=== PATIENT | male | born 1955 | race Caucasian/White ===

== ENCOUNTER 2021-09-08 13:33 | Inpatient (IN) | payer MEDICARE, BC ==
[2021-09-08] MEDS ORDERED: SODIUM CHLORIDE 0.9% 1,000 ML IV ONE (13:42)
[2021-09-08] MEDS ORDERED: fentaNYL (PF) 50 MCG/ML 2 ML AMP IVP STA ×2 (13:44→15:44)
--- NOTE | 2021-09-08 13:54 | ED ---
Trauma HPI - General Stated Complaint: Fall Time Seen by Provider: 09/08/21 13:40 Source: patient Mode of arrival: EMS Limitations: no limitations - History of Present Illness Initial Comments: This 65-year-old male presents after he apparently fell from a ladder. He was purportedly about 5 feet up when he fell backwards. He landed on his back and most likely hit his head. He apparently was unconscious for up to 15 minutes. Per EMS, he was having retrograde amnesia and repetitive questioning. He is complaining of some pain into his right upper back which seems radiate into his shoulder. He also complains of some pain into his cervical spine. He states that his arms feel heavy. He denies any extremity trauma otherwise. He is not on any blood thinner type of medications or aspirin. This occurred just prior to arrival and he is brought in via EMS. He received 50 g of fentanyl intravenously per EMS with moderate relief. - Related Data Allergies Allergy/AdvReac Type Severity Reaction Status Date / Time No Known Allergies Allergy Verified 09/08/21 13:49 Review of Systems ROS Statement: Those systems with pertinent positive or pertinent negative responses have been documented in the HPI. ROS Other: All systems not noted in ROS Statement are negative. Past Medical History Past Medical History: Diabetes Mellitus, Hypertension History of Any Multi-Drug Resistant Organisms: None Reported Past Surgical History: Back Surgery Past Psychological History: No Psychological Hx Reported Smoking Status: Never smoker Past Alcohol Use History: None Reported Past Drug Use History: None Reported General Exam - General Exam Comments Initial Comments: GENERAL: The patient is well nourished and well hydrated. VITAL SIGNS: Heart rate, blood pressure, respiratory rate reviewed as recorded i n nurse's notes. EYES: Pupils are round and reactive. Extraocular movements are intact. No conjunctival / lid redness or swelling. ENT: No external evidence of injury, swelling, or ecchymosis. Airway is patent. Throat is clear. NECK: Mild tenderness noted diffusely to the cervical spine. No swelling or evidence of injury. No subcutaneous emphysema. Trachea is midline. No thyroid mass. HEART: Regular rate and rhythm. Good peripheral pulses. LUNGS/CHEST: Breath sounds clear and equal bilaterally. No rales, rhonchi, or wheezes. No ecchymosis, subcutaneous emphysema, or tenderness. ABDOMEN: Abdomen soft with mild tenderness in the right upper abdomen. No palpable masses or organomegaly. No peritoneal signs. No abdominal wall swelling or ecchymosis. EXTREMITIES: There is mild tenderness noted to the right shoulder diffusely. Normal muscle tone and function. Tenderness is noted into the right upper thoracic region mostly over the ribs just to the right of midline. There is also some mild tenderness over the midthoracic spine. NEUROLOGIC: Sensation is grossly intact. Cranial nerve exam reveals face is symmetrical, tongue is midline, speech is clear. SKIN: No abrasions or ecchymosis is noted. No induration or masses noted. PSYCHIATRIC: Alert and oriented. Appropriate behavior and judgment. Limitations: no limitations Course Vital Signs 09/08/21 13:45 Temperature 98 F Pulse Rate 81 Respiratory 18 Rate Blood Pressure 132/84 O2 Sat by Pulse 90 L Oximetry Medical Decision Making - Medical Decision Making The patient was seen and examined. He was received as a trauma and was seen immediately. He presents on a backboard and c-collar. He did not meet trauma activation criteria per current protocols so trauma to his not initially activated. Backboard is cleared. C-collar is maintained. IV is already established. His oxygenation apparently was down to 85% on scene and oxygen is initiated and maintained. He received 50 g of fentanyl via EMS. An additional 50 g of fentanyl was ordered. The patient had laboratory analysis completed which shows evidence of elevation of his liver function studies. Remainder of labs do not show any overt significant abnormalities. The computed tomography scan of the brain does not show any intracranial hemorrhage or acute processes. The computed tomography scan of the thoracic, lumbar, and cervical spine was all negative for acute processes. The computed tomography scan of the thorax does show fractures of ribs 3 through 10 consistent with flail chest. All her segmental except for rib #9. There also is a small pneumothorax, and a small pneumothorax less than 5%. There is evidence of a right pulmonary contusion. This computed tomography scan of the abdomen and pelvis shows a 2.5 cm right hepatic hematoma which is considered grade 3. There is a right adrenal hem atoma. There also is a right renal laceration which is considered to be grade 3 with a subcapsular 1.1 cm hematoma. Patient receives additional fentanyl as well as IV fluids. EKG is ordered and shows a normal sinus rhythm at a rate of 73. ST-T wave changes noted. The RI intervals 175, QRS duration is 89, and the QTC intervals 426. The c-collar is cleared. The case is discussed with Dr. Brush from trauma surgery as well as Dr. Berumen from pulmonology as well as Dr. Matos from urology and Dr. Louise from CV surgery and they are agreeable with admission and consultation. Patient will be admitted to the intensive care unit for further treatment. On recheck, he is approximately 92% on 3 L per nasal cannula. Approximately 45 minutes of critical care time is utilized and the treatment of the patient. - Lab Data Result diagrams: 09/08/21 14:07 09/08/21 14:07 Lab Results 09/08/21 09/08/21 09/08/21 Range/Units 14:00 14:07 14:07 WBC 12.0 H (3.8-10.6) k/uL RBC 4.66 (4.30-5.90) m/uL Hgb 15.1 (13.0-17.5) gm/dL Hct 45.1 (39.0-53.0) % MCV 96.7 (80.0-100.0) fL MCH 32.3 (25.0-35.0) pg MCHC 33.5 (31.0-37.0) g/dL RDW 13.2 (11.5-15.5) % Plt Count 209 (150-450) k/uL MPV 7.4 Neutrophils % 80 % Lymphocytes % 13 % Monocytes % 4 % Eosinophils % 1 % Basophils % 0 % Neutrophils # 9.6 H (1.3-7.7) k/uL Lymphocytes # 1.6 (1.0-4.8) k/uL Monocytes # 0.5 (0-1.0) k/uL Eosinophils # 0.1 (0-0.7) k/uL Basophils # 0.0 (0-0.2) k/uL PT 10.7 (9.0-12.0) sec INR 1.0 (<1.2) APTT 19.3 L (22.0-30.0) sec Sodium (137-145) mmol/L Potassium (3.5-5.1) mmol/L Chloride (98-107) mmol/L Carbon Dioxide (22-30) mmol/L Anion Gap mmol/L BUN (9-20) mg/dL Creatinine (0.66-1.25) mg/dL Est GFR (CKD-EPI)AfAm (>60 ml/min/1.73 sqM) Est GFR (CKD-EPI)NonAf (>60 ml/min/1.73 sqM) Glucose (74-99) mg/dL Plasma Lactic Acid Timo (0.7-2.0) mmol/L Calcium (8.4-10.2) mg/dL Total Bilirubin (0.2-1.3) mg/dL AST (17-59) U/L ALT (4-49) U/L Alkaline Phosphatase (38-126) U/L Total Protein (6.3-8.2) g/dL Albumin (3.5-5.0) g/dL Lipase (23-300) U/L Blood Type B Positive Blood Type Confirm Blood Type Recheck No Previous Record Bld Type Recheck Status CABO Indicated Antibody Screen NEGATIVE Spec Expiration Date 09/11/2021 - 229909/08/21 09/08/21 09/08/21 Range/Units 14:07 14:07 15:09 WBC (3.8-10.6) k/uL RBC (4.30-5.90) m/uL Hgb (13.0-17.5) gm/dL Hct (39.0-53.0) % MCV (80.0-100.0) fL MCH (25.0-35.0) pg MCHC (31.0-37.0) g/dL RDW (11.5-15.5) % Plt Count (150-450) k/uL MPV Neutrophils % % Lymphocytes % % Monocytes % % Eosinophils % % Basophils % % Neutrophils # (1.3-7.7) k/uL Lymphocytes # (1.0-4.8) k/uL Monocytes # (0-1.0) k/uL Eosinophils # (0-0.7) k/uL Basophils # (0-0.2) k/uL PT (9.0-12.0) sec INR (<1.2) APTT (22.0-30.0) sec Sodium 135 L (137-145) mmol/L Potassium 4.3 (3.5-5.1) mmol/L Chloride 102 (98-107) mmol/L Carbon Dioxide 24 (22-30) mmol/L Anion Gap 9 mmol/L BUN 17 (9-20) mg/dL Creatinine 1.08 (0.66-1.25) mg/dL Est GFR (CKD-EPI)AfAm 82 (>60 ml/min/1.73 sqM) Est GFR (CKD-EPI)NonAf 71 (>60 ml/min/1.73 sqM) Glucose 192 H (74-99) mg/dL Plasma Lactic Acid Timo 4.1 H* (0.7-2.0) mmol/L Calcium 9.5 (8.4-10.2) mg/dL Total Bilirubin 0.7 (0.2-1.3) mg/dL AST 663 H (17-59) U/L ALT 668 H (4-49) U/L Alkaline Phosphatase 64 (38-126) U/L Total Protein 7.2 (6.3-8.2) g/dL Albumin 4.4 (3.5-5.0) g/dL Lipase 70 (23-300) U/L Blood Type Blood Type Confirm B Positive Blood Type Recheck Bld Type Recheck Status Antibody Screen Spec Expiration Date Disposition Clinical Impression: Head injury, Concussion, Blunt chest trauma, Acute abdominal pain, Hypoxia, Fall from ladder, Flail chest, Respiratory failure, Rib fractures, Pulmonary con tusion, Hemothorax, Pneumothorax, Adrenal hematoma, Liver hematoma, Kidney laceration, Transaminitis Disposition: ADMITTED IP TO THIS [facility] Condition: Serious Is patient prescribed a controlled substance at d/c from ED?: No Referrals: None,Stated [REFERRING] - 1-2 days Time of Disposition: 16:15 Decision Date: 09/08/21 Decision Time: 16:15
[2021-09-08 14:39] LABS: Basophils % (A) 0 %; Eosinophils # (A) 0.1 k/uL (0-0.7); Eosinophils % (A) 1 %; HCT 45.1 % (39.0-53.0); HGB 15.1 gm/dL (13.0-17.5); Lymphocytes # (A) 1.6 k/uL (1.0-4.8); Lymphocytes % (A) 13 %; MCH 32.3 pg (25.0-35.0); MCHC 33.5 g/dL (31.0-37.0); MCV 96.7 fL (80.0-100.0); Mean Platelet Volume 7.4; Monocytes # (A) 0.5 k/uL (0-1.0); Monocytes % (A) 4 %; Neutrophils # (A) 9.6 k/uL (1.3-7.7); Neutrophils % (A) 80 %; Platelet Count 209 k/uL (150-450); RBC 4.66 m/uL (4.30-5.90); RDW 13.2 % (11.5-15.5)
[2021-09-08 14:49] LABS: Prothrombin Time 10.7 sec (9.0-12.0)
[2021-09-08 14:51] LABS: Albumin 4.4 g/dL (3.5-5.0); Calcium 9.5 mg/dL (8.4-10.2); Potassium 4.3 mmol/L (3.5-5.1); Total Bilirubin 0.7 mg/dL (0.2-1.3); Total Protein 7.2 g/dL (6.3-8.2)
[2021-09-08 14:55] LABS: Partial Thromboplastin Time 19.3 sec (22.0-30.0)
--- NOTE | 2021-09-08 15:15 | CT ---
EXAMINATION TYPE: CT brain cspine wo con DATE OF EXAM: 09/08/2021 COMPARISON: None available HISTORY: Fall from ladder. +LOC. Upper back and right chest pain. IFEOMA. CT DLP: 1881.5 mGycm Automated exposure control for dose reduction was used. TECHNIQUE: CT scan of the head and cervical spine are performed without contrast. FINDINGS: Brain: There is no acute intracranial hemorrhage, mass effect, or midline shift identified. The ventricles and sulci are within normal limits in size. The globes are intact. Mucosal thickening of the left an terior ethmoid air cells and maxillary sinuses. Clear mastoid air cells. Soft tissue calcification hull rrounding the right TMJ. No definite acute calvarial bone fracture identified. Cervical spine: Previous anterior fixation of C5 down to C7 using a plate and 4 metallic screws. No prosthesis break or displacement. Mild anterolisthesis of C3 over C4, likely degenerative. No definite vertebral body collapse or acute displaced fracture. Unremarkable atlantoaxial and atlantooccipital articulations. Degenerative changes of the cervical spine with multilevel opposing endplate osteophytosis. Multileve l spinal canal stenosis most evident at C3-4 and C4-5 levels. Multilevel facet osteoarthropathy is se en most evident at bilateral C4-5 facets and right 7 T1 facet. Severe left C3-4, bilateral C4-5, araseli re bilateral C5-6 and severe bilateral C6-7 neural foraminal stenosis. Right posterior rib fractures, CT scan of the chest is dictated separately. IMPRESSION: 1. No intracranial posttraumatic sequela or acute calvarial bone fracture. 2. No acute traumatic bony injury of the cervical spine. Incidental findings as described above.
--- NOTE | 2021-09-08 15:30 | CT ---
EXAMINATION TYPE: CT thor lumbar spine w con DATE OF EXAM: 09/08/2021 INDICATION: Fall from ladder. +LOC. Upper back and right chest pain. IFEOMA. CT DLP: 4412.7 mGy.cm (including brain, C-spine, chest, abdomen and pelvis). Automated Exposure Cont rol for Dose Reduction was Utilized. TECHNIQUE AND CONTRAST: CT scan of the thoracic and lumbar spine is performed with IV Contrast, patient injected with 100 mL of Isovue 300. COMPARISON: No previous CT scan is available for comparison FINDINGS: Dextroscoliosis of the lumbar spine. Previous L1-L3 fixation using 2 roads and 6 metallic screws. No evidence of prosthesis break or displacement. No definite thoracic or lumbar vertebral body collapse or acute displaced fracture. Severe degenerative changes of the lumbar spine most evident at L3-4, L4-5 and L5-S1 levels with fuse d L1, L2 and L3 vertebral bodies. Previous laminectomy of L1 down to L4. Mild multilevel thoracic spi nal canal stenosis and neuroforaminal stenosis. Bilateral L3-4, L4-5 and L5-S1 neuroforaminal stenosi s with severe bilateral L1-2 and left L2-3 neural foraminal stenosis. Multiple right rib fractures are seen at multiple locations suggestive of flail chest associated with right pleural effusion/hemothorax and right pulmonary infiltration with small right-sided pneumothor ax, kindly refer to the separate dictation of the CT scan of the chest, abdomen and pelvis. IMPRESSION: No definite acute traumatic bony injury of the thoracic or the lumbar spine. Significant right rib fr actures, small right pneumothorax and right sided chest injury, kindly refer to the separate report o f the CT scan of the chest, abdomen and pelvis. Other findings as described above.
--- NOTE | 2021-09-08 15:33 | CT ---
EXAMINATION TYPE: CT ChestAbdPelvis w con DATE OF EXAM: 09/08/2021 COMPARISON: None HISTORY: 65-year-old male Fall from ladder. +LOC. Upper back and right chest pain. IFEOMA. TECHNIQUE: Contiguous axial scanning of the chest, abdomen, and pelvis performed with IV Contrast, pa tient injected with 100 mL of Isovue 300. Delayed images through the kidneys and bladder were obtaine d. Coronal/sagittal reconstructions performed. CT DLP: 2531 mGycm Automated exposure control for dose reduction was used. FINDINGS: CHEST: Are normal size without pericardial effusion. Ascending aorta borderline ectatic at 3.5 cm with conventional arch vessel branching anatomy. No evid ence for aortic dissection. No evidence for mediastinal hematoma. No thoracic lymphadenopathy by CT size criteria. There is a trace, less than 5% pneumothorax on the right. There is a small hemothorax with adjacent a telectasis. Patchy areas of groundglass and consolidation right mid and lower lung suggests pulmonary contusion. Multiple right-sided rib fractures are present. Fractures involve right posterior and lateral third t hrough 10th ribs. Only the ninth rib fracture is not segmental. Otherwise, faustino flail chest is sugge sted. On the left, there is mild dependent atelectasis. Bruising soft tissue swelling and bruising along the right chest wall. ABDOMEN: There is a vague 2.2 cm hypodensity of the right hepatic dome, possible intraparenchymal hematoma, gr genaro 3 injury. Post cystectomy clips. Portal venous system is patent. No biliary ductal dilatation. There is ill-defined soft tissue nodule right adrenal gland measuring 3.3 cm. Some adjacent soft tiss ue stranding just below the hepatic IVC and thickening along the posterior right pararenal fascia pro bably from tracking blood. Couple nonobstructive right renal calculi measuring up to 4 mm. There is a 1.7 cm parenchymal hematoma/laceration along the lateral lower pole right kidney. Subcapsu lar crescentic hematoma measuring up to 1.1 cm thick. Additional vague hypodense contusion at the lat eral upper pole. Findings more apparent on the delayed kidney images. Again, tracking hemorrhage thic kening the posterior right pararenal fascia. Grade 3 injury. Left adrenal gland, left kidney, spleen, and atrophic pancreas show no gross body. No dilated small bowel, free fluid, or free air. Mild stool burden. Left-sided colonic diverticulosis . Redundant sigmoid colon. Diverticular changes greatest in the sigmoid colon. No pericolonic inflamm atory change. PELVIS: Mild circumferential bladder wall thickening. Prostate gland enlarged measuring 6.7 cm wide and after 6.8 cm craniocaudal with lobulated thickening impressing into the base of the bladder. Left-sided pe lvic phleboliths. No abnormal fluid collection in the pelvis OR PELVIC LYMPHADENOPATHY. BONES: Mild to moderate degenerative change of the hips. Degenerated extra convex curvature lumbar spine wit h a previous L3 L1-L3 posterior and interbody fusion with corresponding laminectomies down through th e L5 level. Advanced degenerative disc disease throughout the lumbar spine. Moderately advanced throu ghout the thoracic spine. Thoracic and lumbar spine to contact instructions reported separately. This is not a detailed assessm ent of the spine. IMPRESSION: 1. FLAIL CHEST ON THE RIGHT WITH FRACTURES INVOLVING THE THIRD THROUGH 10TH RIBS. ALL OF THESE ARE SE GMENTAL FRACTURES EXCEPT FOR THE NINTH RIB. 2. UNDERLYING SMALL HEMOTHORAX AND SMALL, LESS THAN 5% PNEUMOTHORAX. SCATTERED PULMONARY CONTUSIONS R IGHT MID AND LOWER LUNG. 3. POSSIBLE GRADE 3 INJURY AT THE RIGHT HEPATIC DOME WITH A 2.2 CM INTRAPARENCHYMAL HEMATOMA. 4. SUSPECT RIGHT ADRENAL HEMATOMA/HEMORRHAGE MEASURING 3.3 CM. 5. GRADE 3 RIGHT RENAL INJURY WITH UPPER POLE CONTUSION, 1.7 CM LOWER POLE PARENCHYMAL LACERATION/HE MATOMA, A 1.1 CM THICK SUBCAPSULAR HEMATOMA. NO COLLECTING SYSTEM INJURY IDENTIFIED. 6. SOME MILD HEMORRHAGE TRACKING FROM HERE AND THICKENING THE POSTERIOR RIGHT PARARENAL FASCIA AND TH E INFRAHEPATIC PERICAVAL TISSUES. 7. INCIDENTAL: LEFT-SIDED COLONIC DIVERTICULOSIS, A COUPLE NONOBSTRUCTIVE RIGHT RENAL CALCULI, MARKED PROSTATOMEGALY AT 6.8 CM. 8. THORACIC AND LUMBAR SPINE REPORTED SEPARATELY. Findings called to Dr. Cates in the ER at 3:30 PM.
[2021-09-08] MEDS ORDERED: SODIUM CHLORIDE 0.9% 500 ML 500 ML IV STA (16:11)
[2021-09-08] MEDS ORDERED: NALOXONE 0.4 MG/ML 1 ML VIAL IV PRN (16:36)
[2021-09-08] MEDS ORDERED: ACETAMINOPHEN TAB 325 MG TAB PO PRN (16:36)
--- NOTE | 2021-09-08 16:46 | XR ---
EXAMINATION TYPE: XR pelvis AP view DATE OF EXAM: 09/08/2021 COMPARISON: NONE HISTORY: Pain TECHNIQUE: Single view FINDINGS: The pelvic ring is intact. Proximal femurs and hip joints are intact. There is minor acetab ular spurring. Sacroiliac joints are intact. There is contrast in the urinary bladder. IMPRESSION: No acute abnormality of the pelvis.
--- NOTE | 2021-09-08 16:47 | XR ---
EXAMINATION TYPE: XR chest 1V portable DATE OF EXAM: 09/08/2021 COMPARISON: NONE HISTORY: Pain TECHNIQUE: Single view FINDINGS: Heart is normal. There is some infiltrate and atelectasis right lung base. There is small a mount of soft tissue air along the lateral right chest wall. This fracture right posterior fifth rib. No pneumothorax. IMPRESSION: Right rib fracture. Infiltrate and atelectasis right lung base. No definite pneumothorax. Minimal soft tissue air outside of the lateral right ribs.
[2021-09-08] MEDS ORDERED: ONDANSETRON 4 MG/2 ML VIAL IVP STA (17:02)
[2021-09-08] MEDS: PANTOPRAZOLE 40 MG/10 ML VIAL IV SCH (17:02)
--- NOTE | 2021-09-08 17:26 | P.GSCN ---
History of Present Illness Consult date: 09/08/21 Reason for Consult: Chest trauma Requesting physician: Aakash Cates History of present illness: This is a 65-year-old gentleman he follows on an outpatient basis with Dr. Riley for primary care. He has a previous medical history of hypertension, type 2 diabetes, sleep apnea without home CPAP use, small right renal mass being watched by a urologist out of [place], BPH, previous tobacco dependence, and family history of coronary artery disease. Apparently this gentleman was up on a ladder trying to remove a raccoon from his roof when he fell backwards onto cement, initially admitted to a 5 foot fall, however with this interview states it was probably more like 10 feet, hit his head and was unconscious for approximate 15 minutes. Upon coming to he complained of right-sided chest and shoulder pain. His grandson he was a witness called family who called 911 and the patient was transferred to [facility] emergency room. In the emergency room he had a chest x-ray demonstrated right-sided rib fractures. CT of the chest and abdomen reveals multiple right-sided rib fractures involving the third through 10th ribs with possible flail chest, small hemothorax with less than 5% pneumothorax on the right with pulmonary contusions present to the right mid and lower lung. In addition there was noted to be possible grade 3 injury at the right hepatic dome with 2.2 cm intraparenchymal hematoma as well as suspected right adrenal hematoma measuring 3.3 cm and grade 3 right renal injury with upper pole contusion. Chest findings were discussed between the ER physician and Dr. Andry Louise. The patient is to be admitted for close observation with consultation placed to cardiothoracic surgery for chest trauma. Review of Systems Review of systems was completed and was negative except as noted - Cardiovascular Reports as per HPI, Reports chest pain - Respiratory Reports snoring - Musculoskeletal Reports as per HPI right: shoulder pain Past Medical History Past Medical History: Diabetes Mellitus, Hypertension, Prostate Disorder History of Any Multi-Drug Resistant Organisms: None Reported Past Surgical History: Back Surgery, Cholecystectomy, Tonsillectomy Past Psychological History: No Psychological Hx Reported Smoking Status: Former smoker Past Alcohol Use History: Rare Past Drug Use History: None Reported - Past Family History Mother Family Medical History: Coronary Artery Disease (CAD) Additional Family Medical History / Comment(s): from myocardial infarction at 63 years old Father Family Medical History: Coronary Artery Disease (CAD) Additional Family Medical History / Comment(s): in his 80s from heart disease Medications and Allergies Home Medications Medication Instructions Recorded Confirmed Type Montelukast [Singulair] 10 mg PO DAILY 09/08/21 09/08/21 History Multivitamin/Iron/Folic Acid 1 tab PO DAILY 09/08/21 09/08/21 History [Centrum Adults Tablet] Tamsulosin HCl [Flomax] 0.4 mg PO DAILY 09/08/21 09/08/21 History glipiZIDE [Glucotrol] 10 mg PO BID 09/08/21 09/08/21 History lisinopriL [Zestril] 10 mg PO HS 09/08/21 09/08/21 History metFORMIN HCL [Glucophage] 1,000 mg PO BID 09/08/21 09/08/21 History Allergies Allergy/AdvReac Type Severity Reaction Status Date / Time No Known Allergies Allergy Verified 09/08/21 16:40 Surgical - Exam Vital Signs Temp Pulse Resp BP Pulse Ox 98 F 81 18 132/84 90 L 09/08/21 13:45 09/08/21 13:45 09/08/21 13:45 09/08/21 13:45 09/08/21 13:45 CONSTITUTIONAL: Awake and alert, cooperative, well-developed, well-nourished, no acute distress EYES: Pupils equal, round, reactive to light, normal ocular movement ENT: Moist mucous membranes without oral lesions present NECK: No masses, no bruits, trachea midline RESPIRATORY: Lungs sounds diminished in the bases bilaterally. Respirations even, nonlabored. Currently on 2 L nasal cannula with oxygen saturation 96%. No paradoxical movement of the chest CARDIOVASCULAR: S1, S2 present. Regular rate and rhythm, sinus rhythm on telemetry. Palpable peripheral pulses bilaterally. No edema present. No calf pain or tenderness noted. GASTROINTESTINAL: Abdomen soft, nontender, nondistended without masses or organomegaly noted. There is no rebound or guarding present. Hypoactive bowel sounds present 4 quadrants. GENITOURINARY: Deferred INTEGUMENTARY: Skin is warm and dry with evidence of good perfusion. NEUROLOGIC: Cranial nerves II through XII intact, normal coordination, no obvious motor or sensory deficits, speech is normal MUSKULOSKELETAL: Able to move all extremities, strength equal bilaterally, normal posture PSYCHIATRIC: Alert and oriented to person place and time, appropriate affect, intact judgment and insight Results - Labs 09/09/21 04:11 09/09/21 04:11 Abnormal Lab Results - Last 24 Hours (Table) 09/08/21 09/08/21 09/08/21 Range/Units 14:07 14:07 14:07 WBC 12.0 H (3.8-10.6) k/uL Neutrophils # 9.6 H (1.3-7.7) k/uL APTT 19.3 L (22.0-30.0) sec Sodium 135 L (137-145) mmol/L Glucose 192 H (74-99) mg/dL Plasma Lactic Acid Timo (0.7-2.0) mmol/L AST 663 H (17-59) U/L ALT 668 H (4-49) U/L 09/08/21 Range/Units 14:07 WBC (3.8-10.6) k/uL Neutrophils # (1.3-7.7) k/uL APTT (22.0-30.0) sec Sodium (137-145) mmol/L Glucose (74-99) mg/dL Plasma Lactic Acid Timo 4.1 H* (0.7-2.0) mmol/L AST (17-59) U/L ALT (4-49) U/L Diabetes panel 09/08/21 Range/Units 14:07 Sodium 135 L (137-145) mmol/L Potassium 4.3 (3.5-5.1) mmol/L Chloride 102 (98-107) mmol/L Carbon Dioxide 24 (22-30) mmol/L BUN 17 (9-20) mg/dL Creatinine 1.08 (0.66-1.25) mg/dL Glucose 192 H (74-99) mg/dL Calcium 9.5 (8.4-10.2) mg/dL AST 663 H (17-59) U/L ALT 668 H (4-49) U/L Alkaline Phosphatase 64 (38-126) U/L Total Protein 7.2 (6.3-8.2) g/dL Albumin 4.4 (3.5-5.0) g/dL Calcium panel 09/08/21 Range/Units 14:07 Calcium 9.5 (8.4-10.2) mg/dL Albumin 4.4 (3.5-5.0) g/dL Pituitary panel 09/08/21 Range/Units 14:07 Sodium 135 L (137-145) mmol/L Potassium 4.3 (3.5-5.1) mmol/L Chloride 102 (98-107) mmol/L Carbon Dioxide 24 (22-30) mmol/L BUN 17 (9-20) mg/dL Creatinine 1.08 (0.66-1.25) mg/dL Glucose 192 H (74-99) mg/dL Calcium 9.5 (8.4-10.2) mg/dL Adrenal panel 09/08/21 Range/Units 14:07 Sodium 135 L (137-145) mmol/L Potassium 4.3 (3.5-5.1) mmol/L Chloride 102 (98-107) mmol/L Carbon Dioxide 24 (22-30) mmol/L BUN 17 (9-20) mg/dL Creatinine 1.08 (0.66-1.25) mg/dL Glucose 192 H (74-99) mg/dL Calcium 9.5 (8.4-10.2) mg/dL Total Bilirubin 0.7 (0.2-1.3) mg/dL AST 663 H (17-59) U/L ALT 668 H (4-49) U/L Alkaline Phosphatase 64 (38-126) U/L Total Protein 7.2 (6.3-8.2) g/dL Albumin 4.4 (3.5-5.0) g/dL - Imaging Chest x-ray: report reviewed, image reviewed CT scan - chest: report reviewed, image reviewed Assessment and Plan Assessment: 1. Fall from standing with right-sided rib fractures 2. Small hemothorax with less than 5% pneumothorax on the right with pulmonary contusions present to the right mid and lower lung 3. Pain secondary to above 4. Possible grade 3 injury at the right hepatic dome with 2.2 cm in traparenchymal hematoma 5. Suspected right adrenal hematoma measuring 3.3 cm, grade 3 right renal i njury with upper pole contusion 6. Transaminitis, likely secondary to above 7. History of hypertension 8. Type 2 diabetes 9. Sleep apnea without home CPAP use 10. Small right renal mass being watched by a urologist out of [place] 11. BPH, on Flomax outpatient 12. Previous tobacco dependence 13. Family history of coronary artery disease Plan: The patient was seen and examined at the bedside in the emergency room. Chart/diagnostics were reviewed. The case was discussed in detail with Dr. Louise. From cardiothoracic surgery standpoint no surgical intervention at this time. Patient remained stable, he is oxygenating and ventilating well. There is no paradoxical movement of the chest to suggest flail chest. Will repeat chest x-ray in the morning. Incentive spirometry ordered and should be encouraged. Pain control per primary care. Transthoracic echocardiogram ordered due to chest trauma. Medical management of other comorbidities per primary care service. More recommendations to follow. Thank you for this consult. We will continue to follow along with you I have personally seen and examined the patient, performed the documentation and the assessment and plan as written. Number of minutes spent on the visit: 30. SAMARA Hall 65 y/o male presented to ED after fall from ladder. Workup revealed multiple right-sided rib fractures without evidence of hemothorax or significant PTX. No indication for chest tube or surgical intervention at this time. Recommend pain control and IS. Additional intraabdominal injuries to be managed by trauma surgery. I have personally seen and examined the patient, reviewed the documentation and the assessment and plan as written. Number of minutes spent on the visit: 45. Andry Louise MD
[2021-09-08] MEDS: MORPHINE SULFATE 4 MG/ML SYRINGE IV PRN ×2 (18:06→20:26)
[2021-09-08 18:27] LABS: Glucose,Whole Blood 180 mg/dL (75-99)
--- NOTE | 2021-09-08 19:11 | P.GSHP ---
History of Present Illness H&P Date: 09/08/21 Patient seen and evaluated. Patient reports falling off a ladder after trying to free a raccoon from his garage and doing well. Patient sustained injuries including along the ribs, adrenal gland, kidneys, liver, lungs. Denies moderate abdominal pain. Reports appetite. CT report of chest abdomen and pelvis demonstrates flail chest. CT of the abdomen pelvis and up and reviewed without free fluid in the pelvis. Plan: 1. Patient currently has a hematoma along the right kidney, adrenal gland, liver. Avoid anticoagulants at this time. 2. For DVT prophylaxis, bilateral SCDs described. 3. Discussion with the emergency room provider, cardiothoracic team consulted for flail test and assessment for stabilization. 4. [employer] consulted for intensive care unit management due to multiple injuries. 5. Urology consultation for renal hematoma and adrenal hematoma 6. Inpatient hospitalization more than 2 nights described. 7. Repeat CBC, CMP 8. Initial diagnostic studies pending patient's pain management 9. May have diet 10. Pulmonary toilet Past Medical History Past Medical History: Diabetes Mellitus, Hypertension, Prostate Disorder History of Any Multi-Drug Resistant Organisms: None Reported Past Surgical History: Back Surgery, Cholecystectomy, Tonsillectomy Past Psychological History: No Psychological Hx Reported Smoking Status: Former smoker Past Alcohol Use History: Rare Past Drug Use History: None Reported - Past Family History Mother Family Medical History: Coronary Artery Disease (CAD) Additional Family Medical History / Comment(s): from myocardial infarction at 63 years old Father Family Medical History: Coronary Artery Disease (CAD) Additional Family Medical History / Comment(s): in his 80s from heart disease Medications and Allergies Home Medications Medication Instructions Recorded Confirmed Type Montelukast [Singulair] 10 mg PO DAILY 09/08/21 09/08/21 History Multivitamin/Iron/Folic Acid 1 tab PO DAILY 09/08/21 09/08/21 History [Centrum Adults Tablet] Tamsulosin HCl [Flomax] 0.4 mg PO DAILY 09/08/21 09/08/21 History glipiZIDE [Glucotrol] 10 mg PO BID 09/08/21 09/08/21 History lisinopriL [Zestril] 10 mg PO HS 09/08/21 09/08/21 History metFORMIN HCL [Glucophage] 1,000 mg PO BID 09/08/21 09/08/21 History Allergies Allergy/AdvReac Type Severity Reaction Status Date / Time No Known Allergies Allergy Verified 09/08/21 16:40 Surgical - Exam Vital Signs Temp Pulse Resp BP Pulse Ox 98 F 81 18 132/84 90 L 09/08/21 13:45 09/08/21 13:45 09/08/21 13:45 09/08/21 13:45 09/08/21 13:45 Results - Labs 09/08/21 14:07 09/08/21 14:07 Abnormal Lab Results - Last 24 Hours (Table) 09/08/21 09/08/21 09/08/21 Range/Units 14:07 14:07 14:07 WBC 12.0 H (3.8-10.6) k/uL Neutrophils # 9.6 H (1.3-7.7) k/uL APTT 19.3 L (22.0-30.0) sec Sodium 135 L (137-145) mmol/L Glucose 192 H (74-99) mg/dL POC Glucose (mg/dL) (75-99) mg/dL Plasma Lactic Acid Timo (0.7-2.0) mmol/L AST 663 H (17-59) U/L ALT 668 H (4-49) U/L 09/08/21 09/08/21 09/08/21 Range/Units 14:07 17:37 18:25 WBC (3.8-10.6) k/uL Neutrophils # (1.3-7.7) k/uL APTT (22.0-30.0) sec Sodium (137-145) mmol/L Glucose (74-99) mg/dL POC Glucose (mg/dL) 180 H (75-99) mg/dL Plasma Lactic Acid Timo 4.1 H* 4.4 H* (0.7-2.0) mmol/L AST (17-59) U/L ALT (4-49) U/L Diabetes panel 09/08/21 Range/Units 14:07 Sodium 135 L (137-145) mmol/L Potassium 4.3 (3.5-5.1) mmol/L Chloride 102 (98-107) mmol/L Carbon Dioxide 24 (22-30) mmol/L BUN 17 (9-20) mg/dL Creatinine 1.08 (0.66-1.25) mg/dL Glucose 192 H (74-99) mg/dL Calcium 9.5 (8.4-10.2) mg/dL AST 663 H (17-59) U/L ALT 668 H (4-49) U/L Alkaline Phosphatase 64 (38-126) U/L Total Protein 7.2 (6.3-8.2) g/dL Albumin 4.4 (3.5-5.0) g/dL Calcium panel 09/08/21 Range/Units 14:07 Calcium 9.5 (8.4-10.2) mg/dL Albumin 4.4 (3.5-5.0) g/dL Pituitary panel 09/08/21 Range/Units 14:07 Sodium 135 L (137-145) mmol/L Potassium 4.3 (3.5-5.1) mmol/L Chloride 102 (98-107) mmol/L Carbon Dioxide 24 (22-30) mmol/L BUN 17 (9-20) mg/dL Creatinine 1.08 (0.66-1.25) mg/dL Glucose 192 H (74-99) mg/dL Calcium 9.5 (8.4-10.2) mg/dL Adrenal panel 09/08/21 Range/Units 14:07 Sodium 135 L (137-145) mmol/L Potassium 4.3 (3.5-5.1) mmol/L Chloride 102 (98-107) mmol/L Carbon Dioxide 24 (22-30) mmol/L BUN 17 (9-20) mg/dL Creatinine 1.08 (0.66-1.25) mg/dL Glucose 192 H (74-99) mg/dL Calcium 9.5 (8.4-10.2) mg/dL Total Bilirubin 0.7 (0.2-1.3) mg/dL AST 663 H (17-59) U/L ALT 668 H (4-49) U/L Alkaline Phosphatase 64 (38-126) U/L Total Protein 7.2 (6.3-8.2) g/dL Albumin 4.4 (3.5-5.0) g/dL
[2021-09-08 19:59] LABS: Appearance,Urine Cloudy (Clear); Bacteria,Urine Rare /hpf; Bilirubin,Urine Negative (Negative); Blood,Urine Large (Negative); Budding Yeast,Urine Rare /hpf; Color,Urine Yellow; Glucose,Urine (UA) Trace (Negative); Ketones,Urine 1+ (Negative); Leukocyte Esterase,Urine Negative (Negative); Mucus,Urine Rare /hpf; Nitrite,Urine Negative (Negative); PH, Urine 5.5 (5.0-8.0); Protein,Urine 2+ (Negative); RBC,Urine >182 /hpf (0-5); Squamous Epithelial Cell,Urine 1 /hpf (0-4); Urobilinogen,Urine <2.0 mg/dL (<2.0); WBC,Urine 16 /hpf (0-5)
[2021-09-08 20:13] LABS: Specific Gravity,Urine >1.050 (1.001-1.035)
[2021-09-08 20:18] LABS: Glucose,Whole Blood 175 mg/dL (75-99)
[2021-09-08] MEDS: INSULIN ASPART (NovoLOG) 100 UNIT/ML VIAL SQ SCH (20:27)
[2021-09-09] MEDS ORDERED: ONDANSETRON 4 MG/2 ML VIAL IVP PRN (00:04)
[2021-09-09] MEDS: MORPHINE SULFATE 4 MG/ML SYRINGE IV PRN ×8 (00:27→22:17)
[2021-09-09 04:37] LABS: Basophils % (A) 0 %; Eosinophils % (A) 0 %; HCT 41.8 % (39.0-53.0); HGB 13.4 gm/dL (13.0-17.5); Lymphocytes # (A) 0.7 k/uL (1.0-4.8); Lymphocytes % (A) 5 %; MCH 31.1 pg (25.0-35.0); Mean Platelet Volume 7.4; Monocytes # (A) 0.8 k/uL (0-1.0); Monocytes % (A) 5 %; Neutrophils # (A) 13.1 k/uL (1.3-7.7); Neutrophils % (A) 90 %; Platelet Count 228 k/uL (150-450); RBC 4.31 m/uL (4.30-5.90); RDW 13.3 % (11.5-15.5); WBC 14.6 k/uL (3.8-10.6)
[2021-09-09 04:50] LABS: Prothrombin Time 10.9 sec (9.0-12.0)
[2021-09-09 04:54] LABS: Albumin 4.1 g/dL (3.5-5.0); Calcium 8.7 mg/dL (8.4-10.2); Potassium 5.9 mmol/L (3.5-5.1); Total Bilirubin 0.6 mg/dL (0.2-1.3); Total Protein 6.7 g/dL (6.3-8.2)
[2021-09-09 06:49] LABS: Glucose,Whole Blood 320 mg/dL (75-99)
[2021-09-09] MEDS: INSULIN ASPART (NovoLOG) 100 UNIT/ML VIAL SQ SCH ×3 (06:52→16:49)
--- NOTE | 2021-09-09 07:27 | P.GSCN ---
History of Present Illness History of present illness: 65 yo male was on a ladder and fell. He sustained chest and abdominal injuries. He has fractured ribs with a flail chest, liver hematoma, possible right adrenal hemorrhage and a small right renal fracture with subcapsular hematoma. We were asked to see the patient. THe patient has hematuria. He is in the icu for the pulmonary issues. The ct scan is reviewed and shows the above findings. The patient has a history of kidney stones. He is followed by urologist in [place] at [facility]. He had a stone procedure about a month ago. Other than stones he has not had any problem with his kidneys. There have been no infections. There's been no blood other than that associated with the kidney stone. He is feeling better this morning. Review of Systems All systems: negative - Constitutional Denies fever, Denies weight loss - EENT Eyes: denies blurred vision Ears, nose, mouth and throat: Denies dysphagia - Cardiovascular Denies chest pain, Denies shortness of breath - Respiratory Denies cough, Denies 7 - Gastrointestinal Reports as per HPI - Genitourinary Denies dysuria, Denies hematuria - Integumentary Denies rash, Denies unusual bruising - Neurological Denies headaches, Denies syncope - Hematologic/Lymphatic Denies easy bleeding, Denies easy bruising Past Medical History Past Medical History: Diabetes Mellitus, Hypertension, Prostate Disorder History of Any Multi-Drug Resistant Organisms: None Reported Past Surgical History: Back Surgery, Cholecystectomy, Tonsillectomy Past Psychological History: No Psychological Hx Reported Smoking Status: Former smoker Past Alcohol Use History: Rare Past Drug Use History: None Reported - Past Family History Mother Family Medical History: Coronary Artery Disease (CAD) Additional Family Medical History / Comment(s): from myocardial infarction at 63 years old Father Family Medical History: Coronary Artery Disease (CAD) Additional Family Medical History / Comment(s): in his 80s from heart disease Medications and Allergies Home Medications Medication Instructions Recorded Confirmed Type Montelukast [Singulair] 10 mg PO DAILY 09/08/21 09/08/21 History Multivitamin/Iron/Folic Acid 1 tab PO DAILY 09/08/21 09/08/21 History [Centrum Adults Tablet] Tamsulosin HCl [Flomax] 0.4 mg PO DAILY 09/08/21 09/08/21 History glipiZIDE [Glucotrol] 10 mg PO BID 09/08/21 09/08/21 History lisinopriL [Zestril] 10 mg PO HS 09/08/21 09/08/21 History metFORMIN HCL [Glucophage] 1,000 mg PO BID 09/08/21 09/08/21 History Allergies Allergy/AdvReac Type Severity Reaction Status Date / Time No Known Allergies Allergy Verified 09/08/21 16:40 Surgical - Exam Vital Signs Temp Pulse Resp BP Pulse Ox 98 F 81 18 132/84 90 L 09/08/21 13:45 09/08/21 13:45 09/08/21 13:45 09/08/21 13:45 09/08/21 13:45 - General Mild discomfort well developed, well nourished - Eyes PERRL - ENT no hearing loss - Neck trachea midline - Respiratory normal expansion - Cardiovascular Rhythm: regular - Abdomen Abdomen: soft, non tender - Genitourinary normal penis with no external lesions, testicles present - Neurologic normal sensation - Musculoskeletal normal posture - Psychiatric oriented to time, oriented to person, oriented to place, speech is normal, memory intact Results - Labs 09/09/21 04:11 09/09/21 04:11 Abnormal Lab Results - Last 24 Hours (Table) 09/08/21 09/08/21 09/08/21 Range/Units 13:48 14:07 14:07 WBC 12.0 H (3.8-10.6) k/uL Neutrophils # 9.6 H (1.3-7.7) k/uL APTT 19.3 L (22.0-30.0) sec Sodium (137-145) mmol/L Glucose (74-99) mg/dL POC Glucose (mg/dL) (75-99) mg/dL Plasma Lactic Acid Timo (0.7-2.0) mmol/L AST (17-59) U/L ALT (4-49) U/L Ur Specific [place] >1.050 H (1.001-1.035) Urine Protein 2+ H (Negative) Urine Glucose (UA) Trace H (Negative) Urine Ketones 1+ H (Negative) Urine Blood Large H (Negative) Urine RBC >182 H (0-5) /hpf Urine WBC 16 H (0-5) /hpf Urine Bacteria Rare H (None) /hpf Urine Mucus Rare H (None) /hpf Urine Yeast (Budding) Rare H (None) /hpf 09/08/21 09/08/21 09/08/21 Range/Units 14:07 14:07 17:37 WBC (3.8-10.6) k/uL Neutrophils # (1.3-7.7) k/uL APTT (22.0-30.0) sec Sodium 135 L (137-145) mmol/L Glucose 192 H (74-99) mg/dL POC Glucose (mg/dL) (75-99) mg/dL Plasma Lactic Acid Timo 4.1 H* 4.4 H* (0.7-2.0) mmol/L AST 663 H (17-59) U/L ALT 668 H (4-49) U/L Ur Specific [place] (1.001-1.035) Urine Protein (Negative) Urine Glucose (UA) (Negative) Urine Ketones (Negative) Urine Blood (Negative) Urine RBC (0-5) /hpf Urine WBC (0-5) /hpf Urine Bacteria (None) /hpf Urine Mucus (None) /hpf Urine Yeast (Budding) (None) /hpf 09/08/21 09/08/21 Range/Units 18:25 20:17 WBC (3.8-10.6) k/uL Neutrophils # (1.3-7.7) k/uL APTT (22.0-30.0) sec Sodium (137-145) mmol/L Glucose (74-99) mg/dL POC Glucose (mg/dL) 180 H 175 H (75-99) mg/dL Plasma Lactic Acid Timo (0.7-2.0) mmol/L AST (17-59) U/L ALT (4-49) U/L Ur Specific [place] (1.001-1.035) Urine Protein (Negative) Urine Glucose (UA) (Negative) Urine Ketones (Negative) Urine Blood (Negative) Urine RBC (0-5) /hpf Urine WBC (0-5) /hpf Urine Bacteria (None) /hpf Urine Mucus (None) /hpf Urine Yeast (Budding) (None) /hpf Diabetes panel 09/08/21 Range/Units 14:07 Sodium 135 L (137-145) mmol/L Potassium 4.3 (3.5-5.1) mmol/L Chloride 102 (98-107) mmol/L Carbon Dioxide 24 (22-30) mmol/L BUN 17 (9-20) mg/dL Creatinine 1.08 (0.66-1.25) mg/dL Glucose 192 H (74-99) mg/dL Calcium 9.5 (8.4-10.2) mg/dL AST 663 H (17-59) U/L ALT 668 H (4-49) U/L Alkaline Phosphatase 64 (38-126) U/L Total Protein 7.2 (6.3-8.2) g/dL Albumin 4.4 (3.5-5.0) g/dL Calcium panel 09/08/21 Range/Units 14:07 Calcium 9.5 (8.4-10.2) mg/dL Albumin 4.4 (3.5-5.0) g/dL Pituitary panel 09/08/21 Range/Units 14:07 Sodium 135 L (137-145) mmol/L Potassium 4.3 (3.5-5.1) mmol/L Chloride 102 (98-107) mmol/L Carbon Dioxide 24 (22-30) mmol/L BUN 17 (9-20) mg/dL Creatinine 1.08 (0.66-1.25) mg/dL Glucose 192 H (74-99) mg/dL Calcium 9.5 (8.4-10.2) mg/dL Adrenal panel 09/08/21 Range/Units 14:07 Sodium 135 L (137-145) mmol/L Potassium 4.3 (3.5-5.1) mmol/L Chloride 102 (98-107) mmol/L Carbon Dioxide 24 (22-30) mmol/L BUN 17 (9-20) mg/dL Creatinine 1.08 (0.66-1.25) mg/dL Glucose 192 H (74-99) mg/dL Calcium 9.5 (8.4-10.2) mg/dL Total Bilirubin 0.7 (0.2-1.3) mg/dL AST 663 H (17-59) U/L ALT 668 H (4-49) U/L Alkaline Phosphatase 64 (38-126) U/L Total Protein 7.2 (6.3-8.2) g/dL Albumin 4.4 (3.5-5.0) g/dL - Imaging CT scan - abdomen: report reviewed, image reviewed Assessment and Plan Assessment: Impression: multisystem trauma secondary to a fall. Small renal laceration with subcapsular hematoma. Right adrenal abnormality, hemorrhage vs adrenal adenoma. History kidney stones. Recommendations: From a urologic standpoint observation is the recommendation. The kidney should heal on its own. Long-term the concern of accelerated hypertension with subcapsular hematoma is always a concern but in the immediate area nothing needs to be done. I will follow with you.
[2021-09-09] MEDS ORDERED: SODIUM CHLORIDE 0.9% 1,000 ML IV ONE ×4 (07:55→23:10)
[2021-09-09] MEDS: PANTOPRAZOLE 40 MG/10 ML VIAL IV SCH (08:22)
[2021-09-09] MEDS: SODIUM CHLORIDE 0.9% 1,000 ML IV SCH ×2 (08:23→16:46)
--- NOTE | 2021-09-09 08:36 | XR ---
EXAMINATION TYPE: XR chest 1V portable DATE OF EXAM: 09/09/2021 COMPARISON: 09/08/2021 INDICATION: Rib fractures TECHNIQUE: Single frontal view of the chest is obtained. FINDINGS: The heart size is normal. The pulmonary vasculature is normal. Mild elevation of the right diaphragm. Right lower lobe infiltrate is largely improved. Right-sided rib fractures are present appear to be present at 4 5 and 6 laterally. No pneumothorax is evident. IMPRESSION: 1. Right lateral fourth through sixth rib fractures
--- NOTE | 2021-09-09 08:57 | P.PN ---
Subjective Progress Note Date: 09/09/21 Principal diagnosis: Fall from standing with right-sided rib fractures, small hemothorax with less than 5% pneumothorax on the right with pulmonary contusions present to the right mid and lower lung, possible grade 3 injury at the right hepatic dome with 2.2 cm intraparenchymal hematoma, suspected right adrenal hematoma measuring 3.3 cm, grade 3 right renal injury with upper pole contusion, transaminitis. Previous medical history of hypertension, type 2 diabetes, sleep apnea without home CPAP use, small right renal mass being watched by a urologist out of [place], BPH, previous tobacco dependence, family history of coronary artery disease The patient was seen and examined this morning sitting up in bed in the intensive care unit in no acute distress. Remains on 2 L nasal cannula with oxygen saturation in the mid 90s. Able to achieve 3215-0402 mL on his incentive spirometry. No paradoxical movement of the chest with respirations. States pain is controlled with current medication regimen. Chest x-ray reviewed this morning. No other new concerns cardiothoracic surgery standpoint. Objective - Vital Signs Vital signs: Vital Signs Temp 98.3 F 09/09/21 08:00 Pulse 71 09/09/21 08:00 Resp 15 09/09/21 08:00 BP 175/90 09/09/21 08:00 Pulse Ox 94 L 09/09/21 08:00 Intake & Output 09/08/21 09/09/21 09/09/21 18:59 06:59 18:59 Intake Total 150 1465 Output Total 0 1150 Balance 150 315 Weight 97.522 kg 100.7 kg Intake: Intake, IV Titration 150 975 Amount Sodium Chloride 0.9% 1, 150 975 000 ml @ 75 mls/hr IV . [id number] Rx#:[id number] Oral 490 Output: Urine 0 1150 Other: Voiding Method Urinal - Exam CONSTITUTIONAL: Appears comfortable, cooperative, no acute distress RESPIRATORY: Lungs sounds diminished bilaterally. Respirations even, non labored, no paradoxical movement of the chest wall with respiration. Currently on 2 L nasal cannula with oxygen saturation 94%. Able to achieve 0153-9481 mL on incentive spirometry CARDIOVASCULAR: S1, S2 present. Regular rate and rhythm, sinus rhythm on telemetry. Palpable peripheral pulses bilaterally. No edema present. No calf pain or tenderness noted GASTROINTESTINAL: Abdomen soft, nontender, nondistended. Active bowel sounds present 4 quadrants. Tolerating diet GENITOURINARY: Continues to void per urinal INTEGUMENTARY: Skin is warm and dry NEUROLOGIC: Cranial nerves II through XII intact MUSKULOSKELETAL: Able to move all extremities, strength equal bilaterally PSYCHIATRIC: Alert and oriented to person place and time, appropriate affect, intact judgment and insight - Labs CBC & Chem 7: 09/09/21 04:11 09/09/21 04:11 Labs: Abnormal Lab Results - Last 24 Hours (Table) 09/08/21 09/08/21 09/08/21 Range/Units 13:48 14:07 14:07 WBC 12.0 H (3.8-10.6) k/uL Neutrophils # 9.6 H (1.3-7.7) k/uL Lymphocytes # (1.0-4.8) k/uL APTT 19.3 L (22.0-30.0) sec Sodium (137-145) mmol/L Potassium (3.5-5.1) mmol/L Carbon Dioxide (22-30) mmol/L Glucose (74-99) mg/dL POC Glucose (mg/dL) (75-99) mg/dL Plasma Lactic Acid Timo (0.7-2.0) mmol/L AST (17-59) U/L ALT (4-49) U/L Ur Specific [place] >1.050 H (1.001-1.035) Urine Protein 2+ H (Negative) Urine Glucose (UA) Trace H (Negative) Urine Ketones 1+ H (Negative) Urine Blood Large H (Negative) Urine RBC >182 H (0-5) /hpf Urine WBC 16 H (0-5) /hpf Urine Bacteria Rare H (None) /hpf Urine Mucus Rare H (None) /hpf Urine Yeast (Budding) Rare H (None) /hpf 09/08/21 09/08/21 09/08/21 Range/Units 14:07 14:07 17:37 WBC (3.8-10.6) k/uL Neutrophils # (1.3-7.7) k/uL Lymphocytes # (1.0-4.8) k/uL APTT (22.0-30.0) sec Sodium 135 L (137-145) mmol/L Potassium (3.5-5.1) mmol/L Carbon Dioxide (22-30) mmol/L Glucose 192 H (74-99) mg/dL POC Glucose (mg/dL) (75-99) mg/dL Plasma Lactic Acid Timo 4.1 H* 4.4 H* (0.7-2.0) mmol/L AST 663 H (17-59) U/L ALT 668 H (4-49) U/L Ur Specific [place] (1.001-1.035) Urine Protein (Negative) Urine Glucose (UA) (Negative) Urine Ketones (Negative) Urine Blood (Negative) Urine RBC (0-5) /hpf Urine WBC (0-5) /hpf Urine Bacteria (None) /hpf Urine Mucus (None) /hpf Urine Yeast (Budding) (None) /hpf 09/08/21 09/08/21 09/08/21 Range/Units 18:25 20:17 23:13 WBC (3.8-10.6) k/uL Neutrophils # (1.3-7.7) k/uL Lymphocytes # (1.0-4.8) k/uL APTT (22.0-30.0) sec Sodium (137-145) mmol/L Potassium (3.5-5.1) mmol/L Carbon Dioxide (22-30) mmol/L Glucose (74-99) mg/dL POC Glucose (mg/dL) 180 H 175 H (75-99) mg/dL Plasma Lactic Acid Timo 8.4 H* (0.7-2.0) mmol/L AST (17-59) U/L ALT (4-49) U/L Ur Specific [place] (1.001-1.035) Urine Protein (Negative) Urine Glucose (UA) (Negative) Urine Ketones (Negative) Urine Blood (Negative) Urine RBC (0-5) /hpf Urine WBC (0-5) /hpf Urine Bacteria (None) /hpf Urine Mucus (None) /hpf Urine Yeast (Budding) (None) /hpf 09/09/21 09/09/21 09/09/21 Range/Units 04:11 04:11 04:11 WBC 14.6 H (3.8-10.6) k/uL Neutrophils # 13.1 H (1.3-7.7) k/uL Lymphocytes # 0.7 L (1.0-4.8) k/uL APTT (22.0-30.0) sec Sodium 132 L (137-145) mmol/L Potassium 5.9 H (3.5-5.1) mmol/L Carbon Dioxide 20 L (22-30) mmol/L Glucose 307 H (74-99) mg/dL POC Glucose (mg/dL) (75-99) mg/dL Plasma Lactic Acid Timo 5.4 H* (0.7-2.0) mmol/L AST 379 H (17-59) U/L ALT 496 H (4-49) U/L Ur Specific [place] (1.001-1.035) Urine Protein (Negative) Urine Glucose (UA) (Negative) Urine Ketones (Negative) Urine Blood (Negative) Urine RBC (0-5) /hpf Urine WBC (0-5) /hpf Urine Bacteria (None) /hpf Urine Mucus (None) /hpf Urine Yeast (Budding) (None) /hpf 09/09/21 09/09/21 Range/Units 06:45 07:49 WBC (3.8-10.6) k/uL Neutrophils # (1.3-7.7) k/uL Lymphocytes # (1.0-4.8) k/uL APTT (22.0-30.0) sec Sodium (137-145) mmol/L Potassium (3.5-5.1) mmol/L Carbon Dioxide (22-30) mmol/L Glucose (74-99) mg/dL POC Glucose (mg/dL) 320 H (75-99) mg/dL Plasma Lactic Acid Timo 3.3 H* (0.7-2.0) mmol/L AST (17-59) U/L ALT (4-49) U/L Ur Specific [place] (1.001-1.035) Urine Protein (Negative) Urine Glucose (UA) (Negative) Urine Ketones (Negative) Urine Blood (Negative) Urine RBC (0-5) /hpf Urine WBC (0-5) /hpf Urine Bacteria (None) /hpf Urine Mucus (None) /hpf Urine Yeast (Budding) (None) /hpf Microbiology - Last 24 Hours (Table) 09/08/21 13:48 Urine Culture - Preliminary Urine,Voided Assessment and Plan Assessment: 1. Fall from standing with right-sided rib fractures 2. Small hemothorax with less than 5% pneumothorax on the right with pulmonary contusions present to the right mid and lower lung 3. Pain secondary to above 4. Possible grade 3 injury at the right hepatic dome with 2.2 cm intraparenchymal hematoma 5. Suspected right adrenal hematoma measuring 3.3 cm, grade 3 right renal injury with upper pole contusion 6. Transaminitis, likely secondary to above 7. History of hypertension 8. Type 2 diabetes 9. Sleep apnea without home CPAP use 10. Small right renal mass being watched by a urologist out of [place] 11. BPH, on Flomax outpatient 12. Previous tobacco dependence 13. Family history of coronary artery disease Plan: 1. No surgical intervention at this time 2. Wean O2 as tolerated. Encourage incentive spirometry use 10 times every hour while awake 3. Increase activity, ambulate as tolerated 3. Will monitor daily x-rays 4. GI/DVT prophylaxis 5. Pain control per current medication regimen 6. Management of other comorbidities per trauma services 7. More recommendations to follow
--- NOTE | 2021-09-09 09:50 | P.CNPUL ---
History of Present Illness Consult date: 09/09/21 Requesting physician: Oneyda Brush Chief complaint: Frail chest. History of present illness: Pulmonary consult dated 09/09/2021. 65-year-old male, who was evaluated in the emergency room yesterday, September 08. He seen today in room 264. The patient sees Dr. Sarabia and jaylen as a primary. He apparently fell from a ladder. He was trying to get a recluse out of his garage. He fell backwards and landed on his head. He apparently lost consciousness for about 40 minutes. He apparently was discovered by his karishma herrmannson, call for help. When he was picked up by EMS, he apparently was having some amnesia, and repetitive questioning. He also complained of some pain in his right upper chest and back area, with radiation to the right shoulder area. The patient was not on any blood thinners. The patient has a history of hypertension, diabetes, and BPH. When I spoke to the ER physician, he told me that the patient was discovered to have multiple rib fractures on the right lateral chest on the right, fractured ribs 3 through 10 on the right, a small pneumothorax and hemothorax on the right, and a pulmonary contusion. In addition there was a liver hematoma, kidney laceration, and adrenal hematoma. White count 14.6, hemoglobin 13.4, hematocrit 41.8, and platelet count. 228,000. Sodium 132, potassium 5.9, chlorides 99, CO2 20, BUN 20, and creatinine 1.17. The patient's lactic acid initially was 5.4. Repeat was 3.3. AST was 379, and ALT was 496. CT of the head and cervical spine, was essentiall y unremarkable. CT of the chest abdomen pelvis revealed a flail chest on the right, with fractures of ribs 3 through 10, except rib 9, underlying small hemothorax and 5% pneumothorax, pulmonary contusion, grade 3 liver hematoma, adrenal hematoma, grade 3 right renal injury with upper pole contusion, among other things. Review of Systems REVIEW OF SYSTEMS: CONSTITUTIONAL: [Negative.] NEUROLOGIC: [ Negative.] HEENT: [ Negative.] CARDIAC: [Negative.] PULMONARY: Pain on deep inspiration, and right-sided chest discomfort. GI: [Negative.] : [Negative.] RHEUMATOLOGIC: [ Negative.] IMMUNOLOGIC: [ Negative.] ENDOCRINE: [Negative. ] DERMATOLOGIC: [Negative.] Past Medical History Past Medical History: Diabetes Mellitus, Hypertension, Prostate Disorder History of Any Multi-Drug Resistant Organisms: None Reported Past Surgical History: Back Surgery, Cholecystectomy, Tonsillectomy Past Psychological History: No Psychological Hx Reported Smoking Status: Former smoker Past Alcohol Use History: Rare Past Drug Use History: None Reported - Past Family History Mother Family Medical History: Coronary Artery Disease (CAD) Additional Family Medical History / Comment(s): from myocardial infarction at 63 years old Father Family Medical History: Coronary Artery Disease (CAD) Additional Family Medical History / Comment(s): in his 80s from heart disease Medications and Allergies Home Medications Medication Instructions Recorded Confirmed Type Montelukast [Singulair] 10 mg PO DAILY 09/08/21 09/08/21 History Multivitamin/Iron/Folic Acid 1 tab PO DAILY 09/08/21 09/08/21 History [Centrum Adults Tablet] Tamsulosin HCl [Flomax] 0.4 mg PO DAILY 09/08/21 09/08/21 History glipiZIDE [Glucotrol] 10 mg PO BID 09/08/21 09/08/21 History lisinopriL [Zestril] 10 mg PO HS 09/08/21 09/08/21 History metFORMIN HCL [Glucophage] 1,000 mg PO BID 09/08/21 09/08/21 History Allergies Allergy/AdvReac Type Severity Reaction Status Date / Time No Known Allergies Allergy Verified 09/08/21 16:40 Physical Exam Osteopathic Statement: *. No significant issues noted on an osteopathic structural exam other than those noted in the History and Physical/Consult. Vitals: Vital Signs Temp Pulse Resp BP Pulse Ox 09/09/21 09:00 75 16 150/78 94 L 09/09/21 08:00 98.3 F 71 15 175/90 94 L 09/09/21 07:00 89 14 147/84 93 L 09/09/21 06:00 84 19 147/84 93 L 09/09/21 05:00 84 23 151/81 93 L 09/09/21 04:00 98.7 F 84 15 156/81 93 L 09/09/21 03:00 85 16 148/80 93 L 09/09/21 02:00 84 22 146/77 93 L 09/09/21 01:00 86 18 146/77 94 L 09/09/21 00:00 97.7 F 87 24 144/75 93 L 09/08/21 23:00 79 21 127/70 94 L 09/08/21 22:00 75 19 132/68 94 L 09/08/21 21:00 76 20 132/68 93 L 09/08/21 20:00 98.1 F 76 23 135/73 94 L 09/08/21 19:00 81 15 142/76 95 09/08/21 18:00 98.7 F 89 20 105/74 96 09/08/21 16:00 71 17 123/78 96 09/08/21 15:00 85 18 139/79 96 09/08/21 13:45 98 F 81 18 132/84 90 L Intake and Output 09/08/21 09/09/21 09/09/21 22:59 06:59 14:59 Intake Total 690 925 260 Output Total 350 800 0 Balance 340 125 260 Intake: IV 260 Sodium Chloride 0.9% 1, 260 000 ml @ 130 mls/hr IV . [id number] [facility] Rx#:[id number] Intake, IV Titration 450 675 Amount Sodium Chloride 0.9% 1, 450 675 000 ml @ 75 mls/hr IV . [id number] [facility] Rx#:[id number] Oral 240 250 Output: Urine 350 800 0 Other: Voiding Method Urinal Urinal Weight 97.522 kg 100.7 kg No acute distress, oriented 3. Currently on 2 L nasal cannula. Saturations 94%. HEENT examination is grossly unremarkable. Neck supple. Full range of motion. No adenopathy thyromegaly or neck vein distention. Cardiovascular examination reveals regular rhythm rate. S1-S2 normal. No S3 or S4. No discernible murmur noted. Heart rate 75 bpm. Lungs reveal diminished breath sounds on the right. Scattered rhonchi in the right. Left chest is essentially clear. 2 L saturation 94%. There are no wheezes. Abdomen soft bowel sounds are heard. No masses or tenderness. Extremities are intact. No cyanosis clubbing or edema. Skin is without rash or lesion. Neurologic examination is brief but nonfocal. Results - Laboratory Findings CBC and BMP: 09/09/21 04:11 09/09/21 04:11 PT/INR, D-dimer PT 10.9 sec (9.0-12.0) 09/09/21 04:11 INR 1.0 (<1.2) 09/09/21 04:11 Abnormal lab findings: Abnormal Labs 09/08/21 09/08/21 09/08/21 13:48 14:07 14:07 WBC 12.0 H Neutrophils # 9.6 H Lymphocytes # APTT 19.3 L Sodium Potassium Carbon Dioxide Glucose POC Glucose (mg/dL) Plasma Lactic Acid Timo AST ALT Ur Specific [place] >1.050 H Urine Protein 2+ H Urine Glucose (UA) Trace H Urine Ketones 1+ H Urine Blood Large H Urine RBC >182 H Urine WBC 16 H Urine Bacteria Rare H Urine Mucus Rare H Urine Yeast (Budding) Rare H 09/08/21 09/08/21 09/08/21 14:07 14:07 17:37 WBC Neutrophils # Lymphocytes # APTT Sodium 135 L Potassium Carbon Dioxide Glucose 192 H POC Glucose (mg/dL) Plasma Lactic Acid Timo 4.1 H* 4.4 H* AST 663 H ALT 668 H Ur Specific [place] Urine Protein Urine Glucose (UA) Urine Ketones Urine Blood Urine RBC Urine WBC Urine Bacteria Urine Mucus Urine Yeast (Budding) 09/08/21 09/08/21 09/08/21 18:25 20:17 23:13 WBC Neutrophils # Lymphocytes # APTT Sodium Potassium Carbon Dioxide Glucose POC Glucose (mg/dL) 180 H 175 H Plasma Lactic Acid Timo 8.4 H* AST ALT Ur Specific [place] Urine Protein Urine Glucose (UA) Urine Ketones Urine Blood Urine RBC Urine WBC Urine Bacteria Urine Mucus Urine Yeast (Budding) 09/09/21 09/09/21 09/09/21 04:11 04:11 04:11 WBC 14.6 H Neutrophils # 13.1 H Lymphocytes # 0.7 L APTT Sodium 132 L Potassium 5.9 H Carbon Dioxide 20 L Glucose 307 H POC Glucose (mg/dL) Plasma Lactic Acid Timo 5.4 H* AST 379 H ALT 496 H Ur Specific [place] Urine Protein Urine Glucose (UA) Urine Ketones Urine Blood Urine RBC Urine WBC Urine Bacteria Urine Mucus Urine Yeast (Budding) 09/09/21 09/09/21 06:45 07:49 WBC Neutrophils # Lymphocytes # APTT Sodium Potassium Carbon Dioxide Glucose POC Glucose (mg/dL) 320 H Plasma Lactic Acid Timo 3.3 H* AST ALT Ur Specific [place] Urine Protein Urine Glucose (UA) Urine Ketones Urine Blood Urine RBC Urine WBC Urine Bacteria Urine Mucus Urine Yeast (Budding) - Diagnostic Findings Chest x-ray: image reviewed CT scan - chest: image reviewed Assessment and Plan Assessment: Status post fall from a ladder, with multiple injuries including flail chest on the right, fractures of ribs 3 through 10 except #9, on the right, small hemotho rax, pulmonary contusion, small pneumothorax, liver hematoma, kidney laceration, and adrenal hematoma. Apparent lost of consciousness from fall, for 40 minutes. History of BPH. History of hypertension. History of diabetes mellitus. Plan: Plan dated 09/09/2021. The patient is currently on oxygen therapy at 2 L. His saline IVs running at 130 mL an hour. The patient's getting pain medication in the form of fentanyl and morphine. The patient's also getting GI prophylaxis. We will recommend deep breathing, coughing, and clearing of secretions, as well as hourly use of the incentive spirometer. No additional recommendations are made. Prognosis is guarded. We will continue to follow make recommendations where appropriate. Time with Patient: Greater than 30
[2021-09-09 11:25] LABS: Glucose,Whole Blood 222 mg/dL (75-99)
--- NOTE | 2021-09-09 11:58 | ECHOF ---
Referral Reason:Chest trauma MEASUREMENTS -------- HEIGHT: 162.6 cm WEIGHT: 100.7 kg BP: RVIDd: 3.3 cm (< 3.3) IVSd: 1.2 cm (0.6 - 1.1) LVIDd: 4.2 cm (3.9 - 5.3) LVPWd: 1.2 cm (0.6 - 1.1) IVSs: 1.4 cm LVIDs: 3.1 cm LVPWs: 1.4 cm LA Diam: 3.5 cm (2.7 - 3.8) Ao Diam: 3.1 cm (2.0 - 3.7) AV Cusp: 2.2 cm (1.5 - 2.6) LA Diam: 2.8 cm (2.7 - 3.8) MV EXCURSION: 22.560 mm (> 18.000) MV EF SLOPE: 63 mm/s (70 - 150) EPSS: 0.2 cm MV E Danish: 0.56 m/s MV DecT: 148 ms MV A Danish: 0.82 m/s MV E/A Ratio: 0.68 RAP: 5.00 mmHg RVSP: 26.20 mmHg FINDINGS -------- Sinus rhythm. This was a technically adequate study. LV size, wall thickness and systolic function are normal, with an EF greater than 55%. The left norma tricular size is normal. The right ventricle is normal in size. The left atrial size is normal. The right atrial size is normal. The aortic valve is trileaflet, and appears structurally normal. No aortic stenosis or regurgitation. Mild mitral annular calcification present. Mild mitral regurgitation is present. Mild tricuspid regurgitation present. Right ventricular systolic pressure is normal at < 35 mmHg. There is no pulmonic regurgitation present. There is no pericardial effusion. CONCLUSIONS -------- 1. LV size, wall thickness and systolic function are normal, with an EF greater than 55%. 2. The left ventricular size is normal. 3. The right ventricle is normal in size. 4. The left atrial size is normal. 5. The right atrial size is normal. 6. The aortic valve is trileaflet, and appears structurally normal. No aortic stenosis or regurgitati on. 7. Mild mitral annular calcification present. 8. Mild mitral regurgitation is present. 9. Mild tricuspid regurgitation present. 10. There is no pericardial effusion. TIRE DEBEADER: Serenity Moore RDCS
--- NOTE | 2021-09-09 13:16 | P.PN ---
Subjective Progress Note Date: 09/09/21 CHIEF COMPLAINT: Fall from ladder HISTORY OF PRESENT ILLNESS: Patient is currently in the ICU and is sitting at bedside chair. He is requiring 2 L of oxygen satting at 95%. He reports that his pain is controlled with the morphine. However it does make him sleepy. He is requesting something else for pain. Patient denies any abdominal pain. Denies any nausea or vomiting. He reports that he is urinating without difficulty. Denies any blood or dark color to his urine. Afebrile. WBC is up from 12-14.6 hemoglobin is 13.4 platelets 228 INR 1.0 sodium is 132 potassium is 5.9 creatinine is 1.17 glucose 307 lactic acid 2.9 LFTs elevated but trending downwards AST 379 ALT 496 creatinine kinase elevated at 1582. Myoglobin pending. Patient seen by cardiothoracic team, pulmonary service and urology. PHYSICAL EXAM: VITAL SIGNS: Reviewed GENERAL: Well-developed in no acute distress. HEENT: No sclera icterus. Extraocular movements grossly intact. Moist buccal mucosa. Head is atraumatic, normocephalic. Hears conversational speech. No nasal drainage. NECK: Supple without lymphadenopathy. CHEST: Non-labored respirations and equal bilateral excursions. CARDIOVASCULAR: Palpable 2+ radial pulses. ABDOMEN: Soft. Nondistended. Nontender. MUSCULOSKELETAL: No clubbing or cyanosis. NEUROLOGIC: No focal or lateralizing signs. Cranial nerves II through XII grossly intact. PSYCH: Appropriate affect. Alert and oriented to person, place and time. SKIN: Well perfused. Good skin turgor. ASSESSMENT: 1. Fall from ladder with multiple trauma injuries 2. Flail chest on the right with rib fractures 3 through 10 except #9 3. Right small hemothorax 4. Right small pneumothorax 5. Pulmonary contusion 6. Liver hematoma 7. Kidney laceration with subcapsular hematoma 8. Adrenal hematoma versus adrenal adenoma 9. Acute rhabdomyolysis due to patient's injuries 10. Loss of consciousness 11. History of diabetes mellitus with elevated glucose 12. History of hypertension 13. Elevated LFTs due to liver injury PLAN: -Continue ICU management -Continue supportive care -Continue to monitor oxygen saturation -Consult pain service for pain management -Consult medical service for medical management -Continue pain medication -Encouraged patient to use incentive spirometer -Continue IV fluids -Repeat CK level, CBC and CMP in a.m. -Prophylaxis Protonix and DVT prophylaxis SCDs Physician Ceramic Sprayer note has been reviewed by physician. Signing provider agrees with the documented findings, assessment, and plan of care. Patient seen and evaluated. Patient had severe urinary retention over 900 mL. Recommend watkins catheter. Continue Flomax. Additionally, patient in active rhabdomyolysis as a cause of lactic acidosis. Recommend IV fluid hydration. May need combination of aggressive IV fluid and Lasix. Objective - Vital Signs Vital signs: Vital Signs Temp 98.3 F 09/09/21 08:00 Pulse 80 09/09/21 10:00 Resp 25 H 09/09/21 10:00 BP 154/86 09/09/21 10:00 Pulse Ox 94 L 09/09/21 09:00 Intake & Output 09/08/21 09/09/21 09/09/21 18:59 06:59 18:59 Intake Total 150 1465 1389 Output Total 0 1150 0 Balance 639 838 4632 Weight 97.522 kg 100.7 kg Intake: IV 1389 Sodium Chloride 0.9% 1, 390 000 ml @ 130 mls/hr IV . Q7H42M [facility] Rx#:[id number] Sodium Chloride 0.9% 1, 999 000 ml @ 999 mls/hr IV . Q1H1M [facility] Rx#:[id number] Intake, IV Titration 150 975 Amount Sodium Chloride 0.9% 1, 150 975 000 ml @ 75 mls/hr IV . [id number] [facility] Rx#:[id number] Oral 490 Output: Urine 0 1150 0 Other: Voiding Method Urinal Urinal - Labs CBC & Chem 7: 09/09/21 04:11 09/09/21 14:31 Labs: Abnormal Lab Results - Last 24 Hours (Table) 09/08/21 09/08/21 09/08/21 Range/Units 13:48 14:07 14:07 WBC 12.0 H (3.8-10.6) k/uL Neutrophils # 9.6 H (1.3-7.7) k/uL Lymphocytes # (1.0-4.8) k/uL APTT 19.3 L (22.0-30.0) sec Sodium (137-145) mmol/L Potassium (3.5-5.1) mmol/L Carbon Dioxide (22-30) mmol/L Glucose (74-99) mg/dL POC Glucose (mg/dL) (75-99) mg/dL Plasma Lactic Acid Tim[place] (0.7-2.0) mmol/L AST (17-59) U/L ALT (4-49) U/L Ur Specific [place] >1.050 H (1.001-1.035) Urine Protein 2+ H (Negative) Urine Glucose (UA) Trace H (Negative) Urine Ketones 1+ H (Negative) Urine Blood Large H (Negative) Urine RBC >182 H (0-5) /hpf Urine WBC 16 H (0-5) /hpf Urine Bacteria Rare H (None) /hpf Urine Mucus Rare H (None) /hpf Urine Yeast (Budding) Rare H (None) /hpf 09/08/21 09/08/21 09/08/21 Range/Units 14:07 14:07 17:37 WBC (3.8-10.6) k/uL Neutrophils # (1.3-7.7) k/uL Lymphocytes # (1.0-4.8) k/uL APTT (22.0-30.0) sec Sodium 135 L (137-145) mmol/L Potassium (3.5-5.1) mmol/L Carbon Dioxide (22-30) mmol/L Glucose 192 H (74-99) mg/dL POC Glucose (mg/dL) (75-99) mg/dL Plasma Lactic Acid Tim[place] 4.1 H* 4.4 H* (0.7-2.0) mmol/L AST 663 H (17-59) U/L ALT 668 H (4-49) U/L Ur Specific [place] (1.001-1.035) Urine Protein (Negative) Urine Glucose (UA) (Negative) Urine Ketones (Negative) Urine Blood (Negative) Urine RBC (0-5) /hpf Urine WBC (0-5) /hpf Urine Bacteria (None) /hpf Urine Mucus (None) /hpf Urine Yeast (Budding) (None) /hpf 09/08/21 09/08/21 09/08/21 Range/Units 18:25 20:17 23:13 WBC (3.8-10.6) k/uL Neutrophils # (1.3-7.7) k/uL Lymphocytes # (1.0-4.8) k/uL APTT (22.0-30.0) sec Sodium (137-145) mmol/L Potassium (3.5-5.1) mmol/L Carbon Dioxide (22-30) mmol/L Glucose (74-99) mg/dL POC Glucose (mg/dL) 180 H 175 H (75-99) mg/dL Plasma Lactic Acid Tim[place] 8.4 H* (0.7-2.0) mmol/L AST (17-59) U/L ALT (4-49) U/L Ur Specific [place] (1.001-1.035) Urine Protein (Negative) Urine Glucose (UA) (Negative) Urine Ketones (Negative) Urine Blood (Negative) Urine RBC (0-5) /hpf Urine WBC (0-5) /hpf Urine Bacteria (None) /hpf Urine Mucus (None) /hpf Urine Yeast (Budding) (None) /hpf 09/09/21 09/09/21 09/09/21 Range/Units 04:11 04:11 04:11 WBC 14.6 H (3.8-10.6) k/uL Neutrophils # 13.1 H (1.3-7.7) k/uL Lymphocytes # 0.7 L (1.0-4.8) k/uL APTT (22.0-30.0) sec Sodium 132 L (137-145) mmol/L Potassium 5.9 H (3.5-5.1) mmol/L Carbon Dioxide 20 L (22-30) mmol/L Glucose 307 H (74-99) mg/dL POC Glucose (mg/dL) (75-99) mg/dL Plasma Lactic Acid Tim[place] 5.4 H* (0.7-2.0) mmol/L AST 379 H (17-59) U/L ALT 496 H (4-49) U/L Ur Specific [place] (1.001-1.035) Urine Protein (Negative) Urine Glucose (UA) (Negative) Urine Ketones (Negative) Urine Blood (Negative) Urine RBC (0-5) /hpf Urine WBC (0-5) /hpf Urine Bacteria (None) /hpf Urine Mucus (None) /hpf Urine Yeast (Budding) (None) /hpf 09/09/21 09/09/21 Range/Units 06:45 07:49 WBC (3.8-10.6) k/uL Neutrophils # (1.3-7.7) k/uL Lymphocytes # (1.0-4.8) k/uL APTT (22.0-30.0) sec Sodium (137-145) mmol/L Potassium (3.5-5.1) mmol/L Carbon Dioxide (22-30) mmol/L Glucose (74-99) mg/dL POC Glucose (mg/dL) 320 H (75-99) mg/dL Plasma Lactic Acid [place] 3.3 H* (0.7-2.0) mmol/L AST (17-59) U/L ALT (4-49) U/L Ur Specific [place] (1.001-1.035) Urine Protein (Negative) Urine Glucose (UA) (Negative) Urine Ketones (Negative) Urine Blood (Negative) Urine RBC (0-5) /hpf Urine WBC (0-5) /hpf Urine Bacteria (None) /hpf Urine Mucus (None) /hpf Urine Yeast (Budding) (None) /hpf Microbiology - Last 24 Hours (Table) 09/08/21 13:48 Urine Culture - Preliminary Urine,Voided
--- NOTE | 2021-09-09 13:22 | P.PAINCN ---
History of Present Illness - Reason for Consult Consult date: 09/09/21 - History of Present Illness This is 65 years old male, who was admitted to [facility] secondary to traumatic injury, after he fell from the ladder, patient had multiple rib fractures on the right side, patient is complaining of severe right-sided chest wall pain, he is currently on pain medication morphine sulfate 4 mg every 2 hours when necessary, should put the current medication is helping to control his pain, but it makes him sleepy, computed tomography scan of the chest and abdomen showed the patient had right side the reproduction from T4 to T10, possible flail chest and patient had small right-sided pneumothorax, with a right-sided pulmonary contusion Past Medical History Past Medical History: Diabetes Mellitus, Hypertension, Prostate Disorder History of Any Multi-Drug Resistant Organisms: None Reported Past Surgical History: Back Surgery, Cholecystectomy, Tonsillectomy Past Psychological History: No Psychological Hx Reported Smoking Status: Former smoker Past Alcohol Use History: Rare Past Drug Use History: None Reported - Past Family History Mother Family Medical History: Coronary Artery Disease (CAD) Additional Family Medical History / Comment(s): from myocardial infarction at 63 years old Father Family Medical History: Coronary Artery Disease (CAD) Additional Family Medical History / Comment(s): in his 80s from heart disease Medications and Allergies Home Medications Medication Instructions Recorded Confirmed Type Montelukast [Singulair] 10 mg PO DAILY 09/08/21 09/08/21 History Multivitamin/Iron/Folic Acid 1 tab PO DAILY 09/08/21 09/08/21 History [Centrum Adults Tablet] Tamsulosin HCl [Flomax] 0.4 mg PO DAILY 09/08/21 09/08/21 History glipiZIDE [Glucotrol] 10 mg PO BID 09/08/21 09/08/21 History lisinopriL [Zestril] 10 mg PO HS 09/08/21 09/08/21 History metFORMIN HCL [Glucophage] 1,000 mg PO BID 09/08/21 09/08/21 History Allergies Allergy/AdvReac Type Severity Reaction Status Date / Time No Known Allergies Allergy Verified 09/08/21 16:40 Physical Exam Vitals: Vital Signs Temp Pulse Resp BP Pulse Ox 09/09/21 11:00 65 15 159/87 95 09/09/21 10:00 80 25 H 154/86 03/29/22 09:00 75 16 150/78 94 L 09/09/21 08:00 98.3 F 71 15 175/90 94 L 09/09/21 07:00 89 14 147/84 93 L 09/09/21 06:00 84 19 147/84 93 L 09/09/21 05:00 84 23 151/81 93 L 09/09/21 04:00 98.7 F 84 15 156/81 93 L 09/09/21 03:00 85 16 148/80 93 L 09/09/21 02:00 84 22 146/77 93 L 09/09/21 01:00 86 18 146/77 94 L 09/09/21 00:00 97.7 F 87 24 144/75 93 L 09/08/21 23:00 79 21 127/70 94 L 09/08/21 22:00 75 19 132/68 94 L 09/08/21 21:00 76 20 132/68 93 L 09/08/21 20:00 98.1 F 76 23 135/73 94 L 09/08/21 19:00 81 15 142/76 95 09/08/21 18:00 98.7 F 89 20 105/74 96 09/08/21 16:00 71 17 123/78 96 09/08/21 15:00 85 18 139/79 96 09/08/21 13:45 98 F 81 18 132/84 90 L Intake and Output 09/08/21 09/09/21 09/09/21 22:59 06:59 14:59 Intake Total 750 910 0469 Output Total 350 800 0 Balance 840 939 0253 Intake: IV 1389 Sodium Chloride 0.9% 1, 390 000 ml @ 130 mls/hr IV . Q7H42M [facility] Rx#:[id number] Sodium Chloride 0.9% 1, 999 000 ml @ 999 mls/hr IV . Q1H1M [facility] Rx#:[id number] Intake, IV Titration 450 675 Amount Sodium Chloride 0.9% 1, 450 675 000 ml @ 75 mls/hr IV . [id number] [facility] Rx#:[id number] Oral 240 250 Output: Urine 350 800 0 Other: Voiding Method Urinal Urinal Urinal Weight 97.522 kg 100.7 kg Constitutional= awake alert and oriented 3, well-nourished, not in acute distress HEENT= pupils equal, reactive to light, normal ocular movement. Neck= supple with no masses. Chest= right-sided chest wall tenderness. Results CBC & Chem 7: 09/09/21 04:11 09/09/21 04:11 Labs: Abnormal Lab Results - Last 24 Hours (Table) 09/08/21 09/08/21 09/08/21 Range/Units 13:48 14:07 14:07 WBC 12.0 H (3.8-10.6) k/uL Neutrophils # 9.6 H (1.3-7.7) k/uL Lymphocytes # (1.0-4.8) k/uL APTT 19.3 L (22.0-30.0) sec Sodium (137-145) mmol/L Potassium (3.5-5.1) mmol/L Carbon Dioxide (22-30) mmol/L Glucose (74-99) mg/dL POC Glucose (mg/dL) (75-99) mg/dL Plasma Lactic Acid [place] (0.7-2.0) mmol/L AST (17-59) U/L ALT (4-49) U/L Creatine Kinase (55-170) U/L Ur Specific [place] >1.050 H (1.001-1.035) Urine Protein 2+ H (Negative) Urine Glucose (UA) Trace H (Negative) Urine Ketones 1+ H (Negative) Urine Blood Large H (Negative) Urine RBC >182 H (0-5) /hpf Urine WBC 16 H (0-5) /hpf Urine Bacteria Rare H (None) /hpf Urine Mucus Rare H (None) /hpf Urine Yeast (Budding) Rare H (None) /hpf 09/08/21 09/08/21 09/08/21 Range/Units 14:07 14:07 17:37 WBC (3.8-10.6) k/uL Neutrophils # (1.3-7.7) k/uL Lymphocytes # (1.0-4.8) k/uL APTT (22.0-30.0) sec Sodium 135 L (137-145) mmol/L Potassium (3.5-5.1) mmol/L Carbon Dioxide (22-30) mmol/L Glucose 192 H (74-99) mg/dL POC Glucose (mg/dL) (75-99) mg/dL Plasma Lactic Acid [place] 4.1 H* 4.4 H* (0.7-2.0) mmol/L AST 663 H (17-59) U/L ALT 668 H (4-49) U/L Creatine Kinase (55-170) U/L Ur Specific [place] (1.001-1.035) Urine Protein (Negative) Urine Glucose (UA) (Negative) Urine Ketones (Negative) Urine Blood (Negative) Urine RBC (0-5) /hpf Urine WBC (0-5) /hpf Urine Bacteria (None) /hpf Urine Mucus (None) /hpf Urine Yeast (Budding) (None) /hpf 09/08/21 09/08/21 09/08/21 Range/Units 18:25 20:17 23:13 WBC (3.8-10.6) k/uL Neutrophils # (1.3-7.7) k/uL Lymphocytes # (1.0-4.8) k/uL APTT (22.0-30.0) sec Sodium (137-145) mmol/L Potassium (3.5-5.1) mmol/L Carbon Dioxide (22-30) mmol/L Glucose (74-99) mg/dL POC Glucose (mg/dL) 180 H 175 H (75-99) mg/dL Plasma Lactic Acid [place] 8.4 H* (0.7-2.0) mmol/L AST (17-59) U/L ALT (4-49) U/L Creatine Kinase (55-170) U/L Ur Specific [place] (1.001-1.035) Urine Protein (Negative) Urine Glucose (UA) (Negative) Urine Ketones (Negative) Urine Blood (Negative) Urine RBC (0-5) /hpf Urine WBC (0-5) /hpf Urine Bacteria (None) /hpf Urine Mucus (None) /hpf Urine Yeast (Budding) (None) /hpf 09/09/21 09/09/21 09/09/21 Range/Units 04:11 04:11 04:11 WBC 14.6 H (3.8-10.6) k/uL Neutrophils # 13.1 H (1.3-7.7) k/uL Lymphocytes # 0.7 L (1.0-4.8) k/uL APTT (22.0-30.0) sec Sodium 132 L (137-145) mmol/L Potassium 5.9 H (3.5-5.1) mmol/L Carbon Dioxide 20 L (22-30) mmol/L Glucose 307 H (74-99) mg/dL POC Glucose (mg/dL) (75-99) mg/dL Plasma Lactic Acid [place] 5.4 H* (0.7-2.0) mmol/L AST 379 H (17-59) U/L ALT 496 H (4-49) U/L Creatine Kinase (55-170) U/L Ur Specific [place] (1.001-1.035) Urine Protein (Negative) Urine Glucose (UA) (Negative) Urine Ketones (Negative) Urine Blood (Negative) Urine RBC (0-5) /hpf Urine WBC (0-5) /hpf Urine Bacteria (None) /hpf Urine Mucus (None) /hpf Urine Yeast (Budding) (None) /hpf 09/09/21 09/09/21 09/09/21 Range/Units 06:45 07:49 10:50 WBC (3.8-10.6) k/uL Neutrophils # (1.3-7.7) k/uL Lymphocytes # (1.0-4.8) k/uL APTT (22.0-30.0) sec Sodium (137-145) mmol/L Potassium (3.5-5.1) mmol/L Carbon Dioxide (22-30) mmol/L Glucose (74-99) mg/dL POC Glucose (mg/dL) 320 H (75-99) mg/dL Plasma Lactic Acid [place] 3.3 H* (0.7-2.0) mmol/L AST (17-59) U/L ALT (4-49) U/L Creatine Kinase 1582 H* (55-170) U/L Ur Specific [place] (1.001-1.035) Urine Protein (Negative) Urine Glucose (UA) (Negative) Urine Ketones (Negative) Urine Blood (Negative) Urine RBC (0-5) /hpf Urine WBC (0-5) /hpf Urine Bacteria (None) /hpf Urine Mucus (None) /hpf Urine Yeast (Budding) (None) /hpf 09/09/21 09/09/21 Range/Units 10:50 11:23 WBC (3.8-10.6) k/uL Neutrophils # (1.3-7.7) k/uL Lymphocytes # (1.0-4.8) k/uL APTT (22.0-30.0) sec Sodium (137-145) mmol/L Potassium (3.5-5.1) mmol/L Carbon Dioxide (22-30) mmol/L Glucose (74-99) mg/dL POC Glucose (mg/dL) 222 H (75-99) mg/dL Plasma Lactic Acid [place] 2.9 H* (0.7-2.0) mmol/L AST (17-59) U/L ALT (4-49) U/L Creatine Kinase (55-170) U/L Ur Specific [place] (1.001-1.035) Urine Protein (Negative) Urine Glucose (UA) (Negative) Urine Ketones (Negative) Urine Blood (Negative) Urine RBC (0-5) /hpf Urine WBC (0-5) /hpf Urine Bacteria (None) /hpf Urine Mucus (None) /hpf Urine Yeast (Budding) (None) /hpf Microbiology - Last 24 Hours (Table) 09/08/21 13:48 Urine Culture - Preliminary Urine,Voided Comments: Computed tomography scan of the cervical thoracic and lumbar spine reviewed Chest x-ray reviewed Assessment and Plan Plan: Assessment and plan=[id number] chest wall pain secondary to her T4 to T10 rib fractures, shouldn't currently on morphine sulfate 4 mg every 2 hours when necessary. I recommend discontinuing morphine sulfate, once we started patient on [place] 5/325, every 4 hours when necessary, patient could benefit from Lidoderm patch 5% 12 hours on 12 hours off Time with Patient: Less than 30 PQRS Measure Charge Sheet - Pain Location Back Non-Pharmacological Interventions: Darkened Room, Position/Reposition Pharmacological Interventions: PRN Medication Right Generalized Non-Pharmacological Interventions: Darkened Room, Distraction, Inactivity, Posi tion/Reposition Pharmacological Interventions: PRN Medication PQRS Narrative: Do You Want the Pneumonia No Vaccine AT THIS TIME? Blood Pressure 159/87 Pain Intensity [Right 9 Generalized] Pain Intensity [Back] 8 Pain Intensity 7 Pain Scale Used Numeric (1 - 10) Scale Used Numeric (1 - 10) Home Medications: Ambulatory Orders Montelukast [Singulair] 10 mg PO DAILY 09/08/21 Multivitamin/Iron/Folic Acid [Centrum Adults Tablet] 1 tab PO DAILY 09/08/21 Tamsulosin HCl [Flomax] 0.4 mg PO DAILY 09/08/21 glipiZIDE [Glucotrol] 10 mg PO BID 09/08/21 lisinopriL [Zestril] 10 mg PO HS 09/08/21 metFORMIN HCL [Glucophage] 1,000 mg PO BID 09/08/21
[2021-09-09] MEDS: HYDROcodone/APAP 5-325MG 1 EACH TAB PO PRN (15:33)
[2021-09-09 16:49] LABS: Glucose,Whole Blood 212 mg/dL (75-99)
--- NOTE | 2021-09-09 19:08 | P.CONS ---
History of Present Illness - Reason for Consult Consult date: 09/09/21 Medical management Requesting physician: Oneyda Brush - Chief Complaint Fall - History of Present Illness This is a very pleasant 65-year-old patient who follows with Dr. Riley. Chronic stable medical conditions include diabetes, hypertension, BPH and history of kidney stones. 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 Patient was up on a ladder trying to get total for her: And he fell. As a result patient had multiple injuries. Patient developed a flail chest on the right side of the rib fractures 3 through 10, small hemothorax and pneumothorax, pulmonary contusion, liver hematoma could not kidney laceration with subcapsular hematoma, anginal hematoma possibly, patient is currently in the ICU. Decreased appetite. Significant pain. Awake. Had urinary retention and had to have a catheter. at the bedside. Denies any bleeding from the nose. Fell about 10 feet backwards. Landed on his back and possibly hit his head. Was possibly unconscious for about 15 minutes. 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 Alcohol rarely. Does smoke in the past. Works at the [place] at [place] Family history: CAD Physical examination: VITAL SIGNS: 97.7, 85, 15, 140/74, 94% on 2 L] GENERAL: BMI 31, declining but awake, bit tired. EYES: Pupils equal. Conjunctiva normal. HEENT: External appearance of nose and ears normal, oral cavity grossly normal. NECK: JVD not raised; masses not palpable. HEART: First and second heart sounds are normal; no edema. LUNGS: Respiratory rate increased; decreased breath sounds. ABDOMEN: Soft, nontender, liver spleen not palpable, no masses palpable. PSYCH: Alert and oriented x3; mood and affect normal. MUSCULOSKELETAL:No Clubbing/cyanosis;muscles-grossly intact. Right chest wall tenderness NEUROLOGICAL: Cranial nerves grossly intact; no facial asymmetry, power and sensation grossly intact. LYMPHATICS: No lymph nodes palpable in the axilla and neck INVESTIGATIONS, reviewed in the clinical context: September 09: Creatinine kinase 1582. Glucose 222 hemoglobin 13.4 potassium 5.9 and repeat 4.4 White count 12 hemoglobin 15.1 platelets 209 potassium 4.3 creatinine 1.08 Lactic acid 4.1 AST 6 63 ALT 668 UA positive for blood RBC Chest x-ray film personally reviewed by me-right diaphragm elevated. Right rib fractures [address] thoracic or lumbar spine without contrast: Multiple right rib fractures at m ultiple locations suggestive of flail chest associated with a right pleural effusion slight hemothorax small right-sided pneumothorax CT chest abdomen pelvis: Ill-defined soft tissue nodule right internal gland 3.3 cm. Some tracking blood. Nonobstructive right renal calculi of to 4 mm. 1.7 parenchymal hematoma and laceration along the right lower pole right kidney. Some Slight hematoma. Left-sided colonic diverticulosis. Prostate gland enlarged. Some DJD changes. EKG tracing personally reviewed by me-normal sinus rhythm. Rate 73 2-D echocardiogram: EF 55%. No pericardial effusion. Computed tomography scan brain and C-spine without contrast: Unremarkable Assessment and plan: -Acute rhabdomyolysis secondary to fall. IV fluids. Follow CPK. -Left-sided sigmoid diverticulosis: Asymptomatic -Right-sided kidney stones, asymptomatic -BPH with bladder outflow obstruction Patient required Capone catheter. -Lactic acidosis, type II. No sepsis IV fluids -Right-sided pulmonary contusion, small pneumothorax Incentive spirometry -Right-sided flail chest Cardiothoracic surgery consulted. Incentive spirometry -Right-sided multiple rib fractures, liver hematoma, right perinephritic bleeding Follow with surgery -Elevated liver enzymes, liver injury Follow LFTs -Diabetes mellitus type 2, uncontrolled with hyperglycemia Glipizide 5 mg twice a day. Diabetic diet. Follow Accu-Cheks -Essential hypertension Lisinopril 10 mg daily at bedtime Pain control. Incentive spirometry. Follow LFTs. IV fluids. Follow Accu- Cheks. Resume Glucotrol at half the dose. Hold metformin. Follow CPK. SCD. Care was discussed with the patient and . Questions answered. Thank you Dr. Hawkins Past Medical History Past Medical History: Diabetes Mellitus, Hypertension, Prostate Disorder History of Any Multi-Drug Resistant Organisms: None Reported Past Surgical History: Back Surgery, Cholecystectomy, Tonsillectomy Past Psychological History: No Psychological Hx Reported Smoking Status: Former smoker Past Alcohol Use History: Rare Past Drug Use History: None Reported - Past Family History Mother Family Medical History: Coronary Artery Disease (CAD) Additional Family Medical History / Comment(s): from myocardial infarction at 63 years old Father Family Medical History: Coronary Artery Disease (CAD) Additional Family Medical History / Comment(s): in his 80s from heart disease Medications and Allergies Home Medications Medication Instructions Recorded Confirmed Type Montelukast [Singulair] 10 mg PO DAILY 09/08/21 09/08/21 History Multivitamin/Iron/Folic Acid 1 tab PO DAILY 09/08/21 09/08/21 History [Centrum Adults Tablet] Tamsulosin HCl [Flomax] 0.4 mg PO DAILY 09/08/21 09/08/21 History glipiZIDE [Glucotrol] 10 mg PO BID 09/08/21 09/08/21 History lisinopriL [Zestril] 10 mg PO HS 09/08/21 09/08/21 History metFORMIN HCL [Glucophage] 1,000 mg PO BID 09/08/21 09/08/21 History Allergies Allergy/AdvReac Type Severity Reaction Status Date / Time No Known Allergies Allergy Verified 09/08/21 16:40 Physical Exam Vitals: Vital Signs Temp Pulse Resp BP Pulse Ox 09/09/21 11:00 65 15 159/87 95 09/09/21 10:00 80 25 H 154/86 09/09/21 09:00 75 16 150/78 94 L 09/09/21 08:00 98.3 F 71 15 175/90 94 L 09/09/21 07:00 89 14 147/84 93 L 09/09/21 06:00 84 19 147/84 93 L 09/09/21 05:00 84 23 151/81 93 L 09/09/21 04:00 98.7 F 84 15 156/81 93 L 09/09/21 03:00 85 16 148/80 93 L 09/09/21 02:00 84 22 146/77 93 L 09/09/21 01:00 86 18 146/77 94 L 09/09/21 00:00 97.7 F 87 24 144/75 93 L 09/08/21 23:00 79 21 127/70 94 L 09/08/21 22:00 75 19 132/68 94 L 09/08/21 21:00 76 20 132/68 93 L 09/08/21 20:00 98.1 F 76 23 135/73 94 L 09/08/21 19:00 81 15 142/76 95 09/08/21 18:00 98.7 F 89 20 105/74 96 09/08/21 16:00 71 17 123/78 96 09/08/21 15:00 85 18 139/79 96 09/08/21 13:45 98 F 81 18 132/84 90 L Intake and Output 09/08/21 09/09/21 09/09/21 22:59 06:59 14:59 Intake Total 355 415 2502 Output Total 350 800 0 Balance 801 388 1801 Intake: IV 1389 Sodium Chloride 0.9% 1, 390 000 ml @ 130 mls/hr IV . Q7H42M [facility] Rx#:[id number] Sodium Chloride 0.9% 1, 999 000 ml @ 999 mls/hr IV . Q1H1M [facility] Rx#:[id number] Intake, IV Titration 450 675 Amount Sodium Chloride 0.9% 1, 450 675 000 ml @ 75 mls/hr IV . [id number] [facility] Rx#:[id number] Oral 240 250 Output: Urine 350 800 0 Other: Voiding Method Urinal Urinal Urinal Weight 97.522 kg 100.7 kg Results CBC & Chem 7: 09/09/21 04:11 09/09/21 14:31 Labs: Abnormal Lab Results - Last 24 Hours (Table) 09/08/21 09/08/21 09/08/21 Range/Units 13:48 14:07 14:07 WBC 12.0 H (3.8-10.6) k/uL Neutrophils # 9.6 H (1.3-7.7) k/uL Lymphocytes # (1.0-4.8) k/uL APTT 19.3 L (22.0-30.0) sec Sodium (137-145) mmol/L Potassium (3.5-5.1) mmol/L Carbon Dioxide (22-30) mmol/L Glucose (74-99) mg/dL POC Glucose (mg/dL) (75-99) mg/dL Plasma Lactic Acid Timo (0.7-2.0) mmol/L AST (17-59) U/L ALT (4-49) U/L Creatine Kinase (55-170) U/L Ur Specific [place] >1.050 H (1.001-1.035) Urine Protein 2+ H (Negative) Urine Glucose (UA) Trace H (Negative) Urine Ketones 1+ H (Negative) Urine Blood Large H (Negative) Urine RBC >182 H (0-5) /hpf Urine WBC 16 H (0-5) /hpf Urine Bacteria Rare H (None) /hpf Urine Mucus Rare H (None) /hpf Urine Yeast (Budding) Rare H (None) /hpf 09/08/21 09/08/21 09/08/21 Range/Units 14:07 14:07 17:37 WBC (3.8-10.6) k/uL Neutrophils # (1.3-7.7) k/uL Lymphocytes # (1.0-4.8) k/uL APTT (22.0-30.0) sec Sodium 135 L (137-145) mmol/L Potassium (3.5-5.1) mmol/L Carbon Dioxide (22-30) mmol/L Glucose 192 H (74-99) mg/dL POC Glucose (mg/dL) (75-99) mg/dL Plasma Lactic Acid Timo 4.1 H* 4.4 H* (0.7-2.0) mmol/L AST 663 H (17-59) U/L ALT 668 H (4-49) U/L Creatine Kinase (55-170) U/L Ur Specific [place] (1.001-1.035) Urine Protein (Negative) Urine Glucose (UA) (Negative) Urine Ketones (Negative) Urine Blood (Negative) Urine RBC (0-5) /hpf Urine WBC (0-5) /hpf Urine Bacteria (None) /hpf Urine Mucus (None) /hpf Urine Yeast (Budding) (None) /hpf 09/08/21 09/08/21 09/08/21 Range/Units 18:25 20:17 23:13 WBC (3.8-10.6) k/uL Neutrophils # (1.3-7.7) k/uL Lymphocytes # (1.0-4.8) k/uL APTT (22.0-30.0) sec Sodium (137-145) mmol/L Potassium (3.5-5.1) mmol/L Carbon Dioxide (22-30) mmol/L Glucose (74-99) mg/dL POC Glucose (mg/dL) 180 H 175 H (75-99) mg/dL Plasma Lactic Acid Timo 8.4 H* (0.7-2.0) mmol/L AST (17-59) U/L ALT (4-49) U/L Creatine Kinase (55-170) U/L Ur Specific [place] (1.001-1.035) Urine Protein (Negative) Urine Glucose (UA) (Negative) Urine Ketones (Negative) Urine Blood (Negative) Urine RBC (0-5) /hpf Urine WBC (0-5) /hpf Urine Bacteria (None) /hpf Urine Mucus (None) /hpf Urine Yeast (Budding) (None) /hpf 09/09/21 09/09/21 09/09/21 Range/Units 04:11 04:11 04:11 WBC 14.6 H (3.8-10.6) k/uL Neutrophils # 13.1 H (1.3-7.7) k/uL Lymphocytes # 0.7 L (1.0-4.8) k/uL APTT (22.0-30.0) sec Sodium 132 L (137-145) mmol/L Potassium 5.9 H (3.5-5.1) mmol/L Carbon Dioxide 20 L (22-30) mmol/L Glucose 307 H (74-99) mg/dL POC Glucose (mg/dL) (75-99) mg/dL Plasma Lactic Acid Timo 5.4 H* (0.7-2.0) mmol/L AST 379 H (17-59) U/L ALT 496 H (4-49) U/L Creatine Kinase (55-170) U/L Ur Specific [place] (1.001-1.035) Urine Protein (Negative) Urine Glucose (UA) (Negative) Urine Ketones (Negative) Urine Blood (Negative) Urine RBC (0-5) /hpf Urine WBC (0-5) /hpf Urine Bacteria (None) /hpf Urine Mucus (None) /hpf Urine Yeast (Budding) (None) /hpf 09/09/21 09/09/21 09/09/21 Range/Units 06:45 07:49 10:50 WBC (3.8-10.6) k/uL Neutrophils # (1.3-7.7) k/uL Lymphocytes # (1.0-4.8) k/uL APTT (22.0-30.0) sec Sodium (137-145) mmol/L Potassium (3.5-5.1) mmol/L Carbon Dioxide (22-30) mmol/L Glucose (74-99) mg/dL POC Glucose (mg/dL) 320 H (75-99) mg/dL Plasma Lactic Acid Timo 3.3 H* (0.7-2.0) mmol/L AST (17-59) U/L ALT (4-49) U/L Creatine Kinase 1582 H* (55-170) U/L Ur Specific [place] (1.001-1.035) Urine Protein (Negative) Urine Glucose (UA) (Negative) Urine Ketones (Negative) Urine Blood (Negative) Urine RBC (0-5) /hpf Urine WBC (0-5) /hpf Urine Bacteria (None) /hpf Urine Mucus (None) /hpf Urine Yeast (Budding) (None) /hpf 09/09/21 09/09/21 Range/Units 10:50 11:23 WBC (3.8-10.6) k/uL Neutrophils # (1.3-7.7) k/uL Lymphocytes # (1.0-4.8) k/uL APTT (22.0-30.0) sec Sodium (137-145) mmol/L Potassium (3.5-5.1) mmol/L Carbon Dioxide (22-30) mmol/L Glucose (74-99) mg/dL POC Glucose (mg/dL) 222 H (75-99) mg/dL Plasma Lactic Acid Timo 2.9 H* (0.7-2.0) mmol/L AST (17-59) U/L ALT (4-49) U/L Creatine Kinase (55-170) U/L Ur Specific [place] (1.001-1.035) Urine Protein (Negative) Urine Glucose (UA) (Negative) Urine Ketones (Negative) Urine Blood (Negative) Urine RBC (0-5) /hpf Urine WBC (0-5) /hpf Urine Bacteria (None) /hpf Urine Mucus (None) /hpf Urine Yeast (Budding) (None) /hpf Microbiology - Last 24 Hours (Table) 09/08/21 13:48 Urine Culture - Preliminary Urine,Voided
[2021-09-09] MEDS: FAMOTIDINE 20 MG TAB PO SCH (20:01)
[2021-09-09] MEDS: TAMSULOSIN 0.4 MG CAP.ER.24H PO SCH (20:01)
[2021-09-09] MEDS: lisinopriL 10 MG TAB PO SCH (20:02)
[2021-09-09] MEDS: glipiZIDE 5 MG TAB PO SCH (20:02)
[2021-09-10] MEDS: SODIUM CHLORIDE 0.9% 1,000 ML IV SCH ×5 (00:46→17:10)
[2021-09-10] MEDS: FUROSEMIDE 10 MG/ML 2 ML VIAL IV SCH ×3 (00:46→21:07)
[2021-09-10] MEDS: MORPHINE SULFATE 4 MG/ML SYRINGE IV PRN ×6 (00:57→18:27)
--- NOTE | 2021-09-10 06:08 | XR ---
EXAMINATION TYPE: XR chest 1V portable DATE OF EXAM: 09/10/2021 CLINICAL HISTORY: Difficulty breathing progress study. Admitted after trauma injury 2 days ago. TECHNIQUE: Single AP portable semiupright view of the chest is obtained. COMPARISON: Chest x-ray from one day earlier and older studies. FINDINGS: Persistent right lower lung opacity and patchy left basilar opacity. No pneumothorax ident ified currently. Cardiac silhouette size stable and within normal limits. Postsurgical change to the lower cervical spine redemonstrated. Postsurgical change to the lumbar spine partially imaged. Cholec ystectomy clips are redemonstrated. Some of the known right-sided rib fractures posteriorly and later ally are identified, they are better seen in there entirety on recent CT IMPRESSION: Stable patchy left basilar atelectasis and/or acute infiltrate. Stable more prominent rig ht lower lung acute infiltrate and/or pulmonary hemorrhage. No significant change from one day kirstin hdez
[2021-09-10 06:42] LABS: Glucose,Whole Blood 209 mg/dL (75-99)
[2021-09-10] MEDS: glipiZIDE 5 MG TAB PO SCH ×2 (06:49→17:09)
[2021-09-10] MEDS: INSULIN ASPART (NovoLOG) 100 UNIT/ML VIAL SQ SCH ×3 (06:51→17:10)
[2021-09-10 08:00] LABS: Basophils % (A) 0 %; Eosinophils # (A) 0.1 k/uL (0-0.7); Eosinophils % (A) 1 %; HCT 38.1 % (39.0-53.0); HGB 12.2 gm/dL (13.0-17.5); Lymphocytes # (A) 1.3 k/uL (1.0-4.8); Lymphocytes % (A) 11 %; MCH 31.1 pg (25.0-35.0); MCHC 32.1 g/dL (31.0-37.0); Mean Platelet Volume 7.6; Monocytes # (A) 0.8 k/uL (0-1.0); Monocytes % (A) 7 %; Neutrophils # (A) 9.2 k/uL (1.3-7.7); Neutrophils % (A) 80 %; Platelet Count 161 k/uL (150-450); RBC 3.93 m/uL (4.30-5.90); RDW 12.9 % (11.5-15.5); WBC 11.6 k/uL (3.8-10.6)
[2021-09-10 08:25] LABS: Albumin 3.4 g/dL (3.5-5.0); Calcium 8.3 mg/dL (8.4-10.2); Potassium 4.5 mmol/L (3.5-5.1); Total Bilirubin 0.8 mg/dL (0.2-1.3); Total Protein 5.9 g/dL (6.3-8.2)
[2021-09-10] MEDS: TAMSULOSIN 0.4 MG CAP.ER.24H PO SCH (08:35)
[2021-09-10] MEDS: MONTELUKAST 10 MG TAB PO SCH (08:35)
[2021-09-10] MEDS: FAMOTIDINE 20 MG TAB PO SCH ×2 (08:35→21:07)
[2021-09-10] MEDS: LIDOCAINE 5% PATCH TOPICAL SCH (08:42)
--- NOTE | 2021-09-10 09:21 | P.PN ---
Subjective Progress Note Date: 09/10/21 The patient is in the hospital after a fall sustaining rib fractures as well as other organ injury including adrenal hemorrhage and right subcapsular hematoma secondary to renal laceration. He could not urinate because of his immobility. Catheters placed and his urine is clear. His abdomen is soft. From a urologic standpoint he is stable. The catheter can be removed when he is ambulatory. I did discuss with the patient the need to watch closely for hypertension down the road because of the subcapsular hematoma and a possible "page" kidney. Objective - Vital Signs Vital signs: Vital Signs Temp 98.3 F 09/10/21 08:00 Pulse 85 09/10/21 08:00 Resp 15 09/10/21 08:00 BP 124/85 09/10/21 08:00 Pulse Ox 94 L 09/10/21 08:00 Intake & Output 09/09/21 09/10/21 09/10/21 18:59 06:59 18:59 Intake Total 4297 3860 750 Output Total 900 3645 275 Balance 3397 215 475 Weight 105.6 kg Intake: IV 4297 2780 400 Sodium Chloride 0.9% 1, 1300 780 000 ml @ 130 mls/hr IV . Q7H42M [facility] Rx#:[id number] Sodium Chloride 0.9% 1, 1000 400 000 ml @ 200 mls/hr IV . Q5H [facility] Rx#:[id number] Sodium Chloride 0.9% 1, 2997 1000 000 ml @ 999 mls/hr IV . Q1H1M [facility] Rx#:[id number] Oral 1080 350 Output: Urine 900 3645 275 Other: Voiding Method Urinal Urinal - Labs CBC & Chem 7: 09/10/21 07:27 09/10/21 07:27 Labs: Abnormal Lab Results - Last 24 Hours (Table) 09/09/21 09/09/21 09/09/21 Range/Units 10:50 10:50 11:23 WBC (3.8-10.6) k/uL RBC (4.30-5.90) m/uL Hgb (13.0-17.5) gm/dL Hct (39.0-53.0) % Neutrophils # (1.3-7.7) k/uL Sodium (137-145) mmol/L Glucose (74-99) mg/dL POC Glucose (mg/dL) 222 H (75-99) mg/dL Plasma Lactic Acid Timo 2.9 H* (0.7-2.0) mmol/L Calcium (8.4-10.2) mg/dL AST (17-59) U/L ALT (4-49) U/L Creatine Kinase 1582 H* (55-170) U/L Total Protein (6.3-8.2) g/dL Albumin (3.5-5.0) g/dL 09/09/21 09/09/21 09/09/21 Range/Units 14:31 16:48 17:34 WBC (3.8-10.6) k/uL RBC (4.30-5.90) m/uL Hgb (13.0-17.5) gm/dL Hct (39.0-53.0) % Neutrophils # (1.3-7.7) k/uL Sodium (137-145) mmol/L Glucose (74-99) mg/dL POC Glucose (mg/dL) 212 H (75-99) mg/dL Plasma Lactic Acid Timo 2.4 H* 3.3 H* (0.7-2.0) mmol/L Calcium (8.4-10.2) mg/dL AST (17-59) U/L ALT (4-49) U/L Creatine Kinase (55-170) U/L Total Protein (6.3-8.2) g/dL Albumin (3.5-5.0) g/dL 09/09/21 09/10/21 09/10/21 Range/Units 20:20 06:40 07:27 WBC 11.6 H (3.8-10.6) k/uL RBC 3.93 L (4.30-5.90) m/uL Hgb 12.2 L (13.0-17.5) gm/dL Hct 38.1 L (39.0-53.0) % Neutrophils # 9.2 H (1.3-7.7) k/uL Sodium (137-145) mmol/L Glucose (74-99) mg/dL POC Glucose (mg/dL) 209 H (75-99) mg/dL Plasma Lactic Acid Timo 3.2 H* (0.7-2.0) mmol/L Calcium (8.4-10.2) mg/dL AST (17-59) U/L ALT (4-49) U/L Creatine Kinase (55-170) U/L Total Protein (6.3-8.2) g/dL Albumin (3.5-5.0) g/dL 09/10/21 Range/Units 07:27 WBC (3.8-10.6) k/uL RBC (4.30-5.90) m/uL Hgb (13.0-17.5) gm/dL Hct (39.0-53.0) % Neutrophils # (1.3-7.7) k/uL Sodium 133 L (137-145) mmol/L Glucose 196 H (74-99) mg/dL POC Glucose (mg/dL) (75-99) mg/dL Plasma Lactic Acid Timo (0.7-2.0) mmol/L Calcium 8.3 L (8.4-10.2) mg/dL AST 112 H (17-59) U/L ALT 274 H (4-49) U/L Creatine Kinase 1283 H* (55-170) U/L Total Protein 5.9 L (6.3-8.2) g/dL Albumin 3.4 L (3.5-5.0) g/dL
--- NOTE | 2021-09-10 10:29 | P.PN ---
Subjective Progress Note Date: 09/10/21 Principal diagnosis: Flail chest. Pulmonary consult dated 09/09/2021. 65-year-old male, who was evaluated in the emergency room yesterday, September 08. He seen today in room 264. The patient sees Dr. Hood as a primary. He apparently fell from a ladder. He was trying to get a recluse out of his garage. He fell backwards and landed on his head. He apparently lost consciousness for about 40 minutes. He apparently was discovered by his grandson, call for help. When he was picked up by EMS, he apparently was having some amnesia, and repetitive questioning. He also complained of some pain in his right upper chest and back area, with radiation to the right shoulder area. The patient was not on any blood thinners. The patient has a history of hypertension, diabetes, and BPH. When I spoke to the ER physician, he told me that the patient was discovered to have multiple rib fractures on the right lateral chest on the right, fractured ribs 3 through 10 on the right, a small pneumothorax and hemothorax on the right, and a pulmonary contusion. In additio n there was a liver hematoma, kidney laceration, and adrenal hematoma. White count 14.6, hemoglobin 13.4, hematocrit 41.8, and platelet count. 228,000. Sodium 132, potassium 5.9, chlorides 99, CO2 20, BUN 20, and creatinine 1.17. The patient's lactic acid initially was 5.4. Repeat was 3.3. AST was 379, and ALT was 496. CT of the head and cervical spine, was essentially unremarkable. CT of the chest abdomen pelvis revealed a flail chest on the right, with fractures of ribs 3 through 10, except rib 9, underlying small hemothorax and 5% pneumothorax, pulmonary contusion, grade 3 liver hematoma, adrenal hematoma, grade 3 right renal injury with upper pole contusion, among other things. Progress note dated 09/10/2021. 65-year-old male, again seen in room 264. Other than pain, the patient is doing relatively well. He remains on saline at 200 mL an hour, and O2 at 2 L. I've asked him to use incentive spirometer every hour while awake. Clinically, the patient stable for transfer out of the intensive care unit. Laboratory data includes a white count 11.6, hemoglobin 12.2, hematocrit 38.1, and platelet count 161,000. Sodium 133, potassium 4.5, chlorides 102, CO2 27, anion gap 4, BUN 15, and creatinine 1.02. His total CK was 1283. AST 112, ALT 274. Albumin 3.4. The patient's chest x-ray show some bibasilar infiltrates and/or atelectasis, right greater than left. Objective - Vital Signs Vital signs: Vital Signs Temp 98.3 F 09/10/21 08:00 Pulse 70 09/10/21 10:00 Resp 12 09/10/21 10:00 BP 116/87 09/10/21 10:00 Pulse Ox 95 09/10/21 10:00 Intake & Output 09/09/21 09/10/21 09/10/21 18:59 06:59 18:59 Intake Total 4297 3860 1150 Output Total 900 3645 1075 Balance 3397 215 75 Weight 105.6 kg Intake: IV 4297 2780 800 Sodium Chloride 0.9% 1, 1300 780 000 ml @ 130 mls/hr IV . Q7H42M [facility] Rx#:[id number] Sodium Chloride 0.9% 1, 1000 800 000 ml @ 200 mls/hr IV . Q5H [facility] Rx#:[id number] Sodium Chloride 0.9% 1, 2997 1000 000 ml @ 999 mls/hr IV . Q1H1M [facility] Rx#:[id number] Oral 1080 350 Output: Urine 900 3645 1075 Other: Voiding Method Urinal Urinal Indwelling Catheter - Exam No acute distress, oriented 3. Currently on 2 L nasal cannula. Saturations 95 %. HEENT examination is grossly unremarkable. Neck supple. Full range of motion. No adenopathy thyromegaly or neck vein distention. Cardiovascular examination reveals regular rhythm rate. S1-S2 normal. No S3 or S4. No discernible murmur noted. Heart rate 70 bpm. Lungs reveal diminished breath sounds on the right. Scattered rhonchi in the right. Left chest is essentially clear. 2 L saturation 95 %. There are no wheezes. Abdomen soft bowel sounds are heard. No masses or tenderness. Extremities are intact. No cyanosis clubbing or edema. Skin is without rash or lesion. Neurologic examination is brief but nonfocal. - Labs CBC & Chem 7: 09/10/21 07:27 09/10/21 07:27 Labs: Abnormal Lab Results - Last 24 Hours (Table) 09/09/21 09/09/21 09/09/21 Range/Units 10:50 10:50 11:23 WBC (3.8-10.6) k/uL RBC (4.30-5.90) m/uL Hgb (13.0-17.5) gm/dL Hct (39.0-53.0) % Neutrophils # (1.3-7.7) k/uL Sodium (137-145) mmol/L Glucose (74-99) mg/dL POC Glucose (mg/dL) 222 H (75-99) mg/dL Plasma Lactic Acid Timo 2.9 H* (0.7-2.0) mmol/L Calcium (8.4-10.2) mg/dL AST (17-59) U/L ALT (4-49) U/L Creatine Kinase 1582 H* (55-170) U/L Total Protein (6.3-8.2) g/dL Albumin (3.5-5.0) g/dL 09/09/21 09/09/21 09/09/21 Range/Units 14:31 16:48 17:34 WBC (3.8-10.6) k/uL RBC (4.30-5.90) m/uL Hgb (13.0-17.5) gm/dL Hct (39.0-53.0) % Neutrophils # (1.3-7.7) k/uL Sodium (137-145) mmol/L Glucose (74-99) mg/dL POC Glucose (mg/dL) 212 H (75-99) mg/dL Plasma Lactic Acid Timo 2.4 H* 3.3 H* (0.7-2.0) mmol/L Calcium (8.4-10.2) mg/dL AST (17-59) U/L ALT (4-49) U/L Creatine Kinase (55-170) U/L Total Protein (6.3-8.2) g/dL Albumin (3.5-5.0) g/dL 09/09/21 09/10/21 09/10/21 Range/Units 20:20 06:40 07:27 WBC 11.6 H (3.8-10.6) k/uL RBC 3.93 L (4.30-5.90) m/uL Hgb 12.2 L (13.0-17.5) gm/dL Hct 38.1 L (39.0-53.0) % Neutrophils # 9.2 H (1.3-7.7) k/uL Sodium (137-145) mmol/L Glucose (74-99) mg/dL POC Glucose (mg/dL) 209 H (75-99) mg/dL Plasma Lactic Acid Timo 3.2 H* (0.7-2.0) mmol/L Calcium (8.4-10.2) mg/dL AST (17-59) U/L ALT (4-49) U/L Creatine Kinase (55-170) U/L Total Protein (6.3-8.2) g/dL Albumin (3.5-5.0) g/dL 09/10/21 Range/Units 07:27 WBC (3.8-10.6) k/uL RBC (4.30-5.90) m/uL Hgb (13.0-17.5) gm/dL Hct (39.0-53.0) % Neutrophils # (1.3-7.7) k/uL Sodium 133 L (137-145) mmol/L Glucose 196 H (74-99) mg/dL POC Glucose (mg/dL) (75-99) mg/dL Plasma Lactic Acid Timo (0.7-2.0) mmol/L Calcium 8.3 L (8.4-10.2) mg/dL AST 112 H (17-59) U/L ALT 274 H (4-49) U/L Creatine Kinase 1283 H* (55-170) U/L Total Protein 5.9 L (6.3-8.2) g/dL Albumin 3.4 L (3.5-5.0) g/dL Assessment and Plan Assessment: Status post fall from a ladder, with multiple injuries including flail chest on the right, fractures of ribs 3 through 10 except #9, on the right, small hemothorax, pulmonary contusion, small pneumothorax, liver hematoma, kidney laceration, and adrenal hematoma. Apparent lost of consciousness from fall, for 40 minutes. History of BPH. History of hypertension. History of diabetes mellitus. Plan: Plan dated 09/09/2021. The patient is currently on oxygen therapy at 2 L. His saline IVs running at 130 mL an hour. The patient's getting pain medication in the form of fentanyl and morphine. The patient's also getting GI prophylaxis. We will recommend deep breathing, coughing, and clearing of secretions, as well as hourly use of the incentive spirometer. No additional recommendations are made. Prognosis is guarded. We will continue to follow make recommendations where appropriate. Plan dated 09/10/2021. The patient is doing well. The biggest issue is pain on deep inspiration. I've asked the patient to continue with incentive spirometer every hours while awake. In addition, we recommend deep breathing, coughing, and clearing of secretions. Labs, x-rays, and medications are all reviewed. The patient could be considered for discharge out of the intensive care unit. He can go to the general medical floor. Thoracic surgery has seen the patient decided nothing more needs to be done from their perspective. Time with Patient: Less than 30
[2021-09-10 12:03] LABS: Glucose,Whole Blood 195 mg/dL (75-99)
--- NOTE | 2021-09-10 12:55 | CDI ---
Documentation Clarification Form Date: 09/10/2021 12:38:44 PM From: Shelby Seaman CCS, CCDS Admit Date: 09/08/2021 04:36:00 PM Patient Name: Adam Plasencia Visit Number: [id number] Discharge Date: ATTENTION: The Clinical Documentation Specialists (CDI) and [facility] Coding Staff appreciate your assistance in clarifying documentation. Please respond to the clarification below the line at the bottom and electronically sign. The CDI & [facility] Coding staff will review the response and follow-up if needed. Please note: Queries are made part of the Legal Health Record. If you have any questions, please contact the author of this message via ITS. Dr. Aakash Berumen: Per the 09/08 ED Note the patient had Hypoxia and Respiratory Failure without further specificity. Based on this information and the findings below, is there an additional diagnosis that is clinically appropriate for this patient? History/Risk Factors per the 09/08 H/P: Diabetes, Hypertension, BPH with urinary retention and bladder outflow obstruction (per Urology), Back Surgery, Former Smoker. Clinical Indicators: Presented to the ED on 09/08 via EMS after a 5-10 ft fall backwards from a ladder, hitting his head, unconscious 15-40 minutes per documentation, retrograde amnesia & repetitive questioning, pain to right upper back radiating to his shoulder, pain in cervical spine, arms felt heavy. Oxygenation apparently down to 85% on the scene & started on O2. Admit with Head injury, Concussion, Blunt chest trauma, Acute abdominal pain, Hypoxia, Fall from ladder, Flail chest, Respiratory failure, Rib fractures, Pulmonary contusion, Hemothorax, Pneumothorax, Adrenal hematoma, Liver hematoma, Kidney laceration, Transaminitis. Admit to ICU. 09/08 VS: T 98, P 81, R 18, BP 132/84, PO 90 RA, BMI: 32.5 09/08 LAB: WBC 12.0, Neut 9.6; APTT 19.3; Na 135, Glucose 192, Lactic Acid 4.1, 4.4, 8.4; AST 663, ALT 668 09/08 Ct Chest/Abdomen/Pelvis: Flail Chest on the right with fractures to 3rd - 10th ribs except the 9th. Small hemothorax & small, less 5% pneumothorax, scattered pulmonary contusions on right mid & lower lung. Possible hepatic dome injury & intraparenchymal hematoma. Suspect right adrenal hematoma/hemorrhage. Right renal injury with upper pole contusion, Lower pole parenchymal laceration/hematoma & subcapsular hematoma. Mild hemorrhage from the posterior right pararenal fascia & infrahepatic pericaval tissues. Treatment 09/08: Admit to ICU, Blood glucose monitoring, Insulin sliding scale, Capone catheter, on Room Air initially, then 3Lnc. IV Na Cl 1,000 mls @ 75 mls/hr q13H, IV Fentanyl 50 mcg x2, IV Na Cl 500 mls @ 999 mls/hr q31M, IV Morphine 4 mg q2H/prn. Is there an additional diagnosis that is clinically appropriate for this patient? [ ] Acute Hypoxic Respiratory Failure [ ] Acute Respiratory Insufficiency [ ] Respiratory Failure ruled out [ ] Other Diagnosis, please specify: [ ] Unable to determine (Template Last Revised: August 2020) MTDD
[2021-09-10] MEDS: IPRATROPIUM-ALBUTEROL 3 ML NEB INHALATION SCH ×3 (13:01→20:45)
--- NOTE | 2021-09-10 14:35 | P.PN ---
Subjective Progress Note Date: 09/10/21 CHIEF COMPLAINT: Fall from ladder HISTORY OF PRESENT ILLNESS: Patient is in the ICU. Patient reports that his pain is controlled. He is still requiring the IV morphine. He did not have much relief with the Union. He is followed by pain service. He is on 2 L oxygen saturation around 86%. Chest x-ray shows stable patchy left basilar atelectasis and/or acute infiltrate. Stable more prominent right lower lung acute infiltrate in or pulmonary hemorrhage. No further intervention is required from cardiothoracic standpoint. Patient denies any new pain. Denies any abdominal pain. He is having a small amount of flatus. Patient is afebrile. His urine is clear. White count trending down from 14.6-11.6 hemoglobin is down from 13-12.2 creatinine 1.02 creatinine kinase down from 9572-0614 liver enzymes are trending downwards. Myoglobin pending PHYSICAL EXAM: VITAL SIGNS: Reviewed GENERAL: Well-developed in no acute distress. HEENT: No sclera icterus. Extraocular movements grossly intact. Moist buccal mucosa. Head is atraumatic, normocephalic. Hears conversational speech. No nasal dr ainage. NECK: Supple without lymphadenopathy. CHEST: Non-labored respirations and equal bilateral excursions. CARDIOVASCULAR: Palpable 2+ radial pulses. ABDOMEN: Soft. Nondistended. Nontender. MUSCULOSKELETAL: No clubbing or cyanosis. NEUROLOGIC: No focal or lateralizing signs. Cranial nerves II through XII grossly intact. PSYCH: Appropriate affect. Alert and oriented to person, place and time. SKIN: Well perfused. Good skin turgor. ASSESSMENT: 1. Fall from ladder with multiple trauma injuries 2. Flail chest on the right with rib fractures 3 through 10 except #9 3. Right small hemothorax 4. Right small pneumothorax 5. Pulmonary contusion 6. Liver hematoma 7. Kidney laceration with subcapsular hematoma 8. Adrenal hematoma versus adrenal adenoma 9. Acute rhabdomyolysis due to patient's injuries 10. Loss of consciousness 11. History of diabetes mellitus with elevated glucose 12. History of hypertension 13. Elevated LFTs due to liver injury 14. Urinary retention 15. Lactic acidosis due to the rhabdomyolysis PLAN -okay to transfer patient out of the ICU -Continue supportive care -Continue to monitor oxygen saturation -Continue pain management -Encouraged patient to use incentive spirometer -Continue IV fluids and IV Lasix for the rhabdomyolysis -Repeat CK level, CBC and CMP in a.m. -Continue Capone catheter -Prophylaxis Protonix and DVT prophylaxis SCDs Physician Concrete Pipe Maker note has been reviewed by physician. Signing provider agrees with the documented findings, assessment, and plan of care. Objective - Vital Signs Vital signs: Vital Signs Temp 98.3 F 09/10/21 08:00 Pulse 71 09/10/21 11:00 Resp 17 09/10/21 11:00 BP 130/74 09/10/21 11:00 Pulse Ox 94 L 09/10/21 11:00 Intake & Output 09/09/21 09/10/21 09/10/21 18:59 06:59 18:59 Intake Total 4297 3860 1150 Output Total 900 3645 1075 Balance 3397 215 75 Weight 105.6 kg Intake: IV 4297 2780 800 Sodium Chloride 0.9% 1, 1300 780 000 ml @ 130 mls/hr IV . Q7H42M [facility] Rx#:[id number] Sodium Chloride 0.9% 1, 1000 800 000 ml @ 200 mls/hr IV . Q5H [facility] Rx#:[id number] Sodium Chloride 0.9% 1, 2997 1000 000 ml @ 999 mls/hr IV . Q1H1M [facility] Rx#:[id number] Oral 1080 350 Output: Urine 900 3645 1075 Other: Voiding Method Urinal Urinal Indwelling Catheter - Labs CBC & Chem 7: 09/10/21 07:27 09/10/21 07:27 Labs: Abnormal Lab Results - Last 24 Hours (Table) 09/09/21 09/09/21 09/09/21 Range/Units 10:50 10:50 11:23 WBC (3.8-10.6) k/uL RBC (4.30-5.90) m/uL Hgb (13.0-17.5) gm/dL Hct (39.0-53.0) % Neutrophils # (1.3-7.7) k/uL Sodium (137-145) mmol/L Glucose (74-99) mg/dL POC Glucose (mg/dL) 222 H (75-99) mg/dL Plasma Lactic Acid Timo 2.9 H* (0.7-2.0) mmol/L Calcium (8.4-10.2) mg/dL AST (17-59) U/L ALT (4-49) U/L Creatine Kinase 1582 H* (55-170) U/L Total Protein (6.3-8.2) g/dL Albumin (3.5-5.0) g/dL 09/09/21 09/09/21 09/09/21 Range/Units 14:31 16:48 17:34 WBC (3.8-10.6) k/uL RBC (4.30-5.90) m/uL Hgb (13.0-17.5) gm/dL Hct (39.0-53.0) % Neutrophils # (1.3-7.7) k/uL Sodium (137-145) mmol/L Glucose (74-99) mg/dL POC Glucose (mg/dL) 212 H (75-99) mg/dL Plasma Lactic Acid Timo 2.4 H* 3.3 H* (0.7-2.0) mmol/L Calcium (8.4-10.2) mg/dL AST (17-59) U/L ALT (4-49) U/L Creatine Kinase (55-170) U/L Total Protein (6.3-8.2) g/dL Albumin (3.5-5.0) g/dL 09/09/21 09/10/21 09/10/21 Range/Units 20:20 06:40 07:27 WBC 11.6 H (3.8-10.6) k/uL RBC 3.93 L (4.30-5.90) m/uL Hgb 12.2 L (13.0-17.5) gm/dL Hct 38.1 L (39.0-53.0) % Neutrophils # 9.2 H (1.3-7.7) k/uL Sodium (137-145) mmol/L Glucose (74-99) mg/dL POC Glucose (mg/dL) 209 H (75-99) mg/dL Plasma Lactic Acid Timo 3.2 H* (0.7-2.0) mmol/L Calcium (8.4-10.2) mg/dL AST (17-59) U/L ALT (4-49) U/L Creatine Kinase (55-170) U/L Total Protein (6.3-8.2) g/dL Albumin (3.5-5.0) g/dL 09/10/21 Range/Units 07:27 WBC (3.8-10.6) k/uL RBC (4.30-5.90) m/uL Hgb (13.0-17.5) gm/dL Hct (39.0-53.0) % Neutrophils # (1.3-7.7) k/uL Sodium 133 L (137-145) mmol/L Glucose 196 H (74-99) mg/dL POC Glucose (mg/dL) (75-99) mg/dL Plasma Lactic Acid Timo (0.7-2.0) mmol/L Calcium 8.3 L (8.4-10.2) mg/dL AST 112 H (17-59) U/L ALT 274 H (4-49) U/L Creatine Kinase 1283 H* (55-170) U/L Total Protein 5.9 L (6.3-8.2) g/dL Albumin 3.4 L (3.5-5.0) g/dL
--- NOTE | 2021-09-10 15:04 | P.PN ---
Progress Note - Text Progress Note Date: 09/10/21 - Chief Complaint Fall Hospital course: This is a very pleasant 65-year-old patient who follows with Dr. Riley. Chronic stable medical conditions include diabetes, hypertension, BPH and history of kidney stones. 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 Patient was up on a ladder trying to get total for her: And he fell. As a result patient had multiple injuries. Patient developed a flail chest on the right side of the rib fractures 3 through 10, small hemothorax and pneumothorax, pulmonary contusion, liver hematoma could not kidney laceration with subcapsular hematoma, anginal hematoma possibly, patient is currently in the ICU. Decreased appetite. Significant pain. Awake. Had urinary retention and had to have a catheter. at the bedside. Denies any bleeding from the nose. Fell about 10 feet backwards. Landed on his back and possibly hit his head. Was possibly unconscious for about 15 minutes. Admitted with acute rhabdomyolysis, active of Capone catheter placed because of bladder outflow obstruction, right-sided pulmonary contusion, right-sided flail chest, multiple right-sided rib fractures, elevated liver enzymes, liver injury. September 10: Moved to the medical floor. Having pain on the right chest wall. Eating little. Has a Capone catheter. Right-sided pulmonary hemorrhage/atelectasis on x-ray. Has not passed any flatus. Active Medications Acetaminophen (Acetaminophen Tab 325 Mg Tab) 650 mg PO Q4HR PRN PRN Reason: Fever and/or Mild Pain Hydrocodone Bitart/Acetaminophen (Hydrocodone/Apap 5-325mg 1 Each Tab) 1 each PO Q4HR PRN PRN Reason: Moderate Pain Last Admin: 09/09/21 15:33 Dose: 1 each Documented by: Albuterol/Ipratropium (Ipratropium-Albuterol 3 Ml Neb) 3 ml INHALATION RT-QID [facility] Last Admin: 09/10/21 13:01 Dose: 3 ml Documented by: Famotidine (Famotidine 20 Mg Tab) 20 mg PO BID [facility] Last Admin: 09/10/21 08:35 Dose: 20 mg Documented by: Furosemide (Furosemide 10 Mg/Ml 2 Ml Vial) 20 mg IV Q12HR [facility] Last Admin: 09/10/21 08:35 Dose: 20 mg Documented by: Glipizide (Glipizide 5 Mg Tab) 5 mg PO AC-BID [facility] Last Admin: 09/10/21 06:49 Dose: 5 mg Documented by: Sodium Chloride (Saline 0.9%) 1,000 mls @ 200 mls/hr IV .Q5H [facility] Last Admin: 09/10/21 13:37 Dose: Not Given Documented by: Insulin Aspart (Insulin Aspart (Novolog) 100 Unit/Ml Vial) 0 unit SQ AC-TID [facility]; Protocol Last Admin: 09/10/21 12:48 Dose: 3 unit Documented by: Lidocaine (Lidocaine 5% Patch) 1 patch TOPICAL DAILY [facility]; Protocol Last Admin: 09/10/21 08:42 Dose: 1 patch Documented by: Lisinopril (Lisinopril 10 Mg Tab) 10 mg PO HS [facility] Last Admin: 09/09/21 20:02 Dose: 10 mg Documented by: Montelukast Sodium (Montelukast 10 Mg Tab) 10 mg PO DAILY [facility] Last Admin: 09/10/21 08:35 Dose: 10 mg Documented by: Morphine Sulfate (Morphine Sulfate 4 Mg/Ml Syringe) 4 mg IV Q2HR PRN PRN Reason: Pain Scale 8 to 10 Last Admin: 09/10/21 12:45 Dose: 4 mg Documented by: Naloxone HCl (Naloxone 0.4 Mg/Ml 1 Ml Vial) 0.2 mg IV Q2M PRN PRN Reason: Opioid Reversal Ondansetron HCl (Ondansetron 4 Mg/2 Ml Vial) 4 mg IVP Q6HR PRN PRN Reason: Nausea And Vomiting Last Admin: 09/09/21 00:26 Dose: 4 mg Documented by: Tamsulosin HCl (Tamsulosin 0.4 Mg Cap.Er.24h) 0.4 mg PO DAILY [facility] Last Admin: 09/10/21 08:35 Dose: 0.4 mg Documented by: Past medical history to include: Diabetes, hypertension, BPH, kidney stone with a double-J stent on the left side previously, 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 Alcohol rarely. Does smoke in the past. [place] the [place] at [employer] Family history: CAD Physical examination: VITAL SIGNS: 97.4, 86, 16, 145/72, 93% on 2 L GENERAL: Reclining in chair, tired. EYES: Pupils equal. Conjunctiva normal. HEENT: External appearance of nose and ears normal, oral cavity grossly normal. NECK: JVD not raised; masses not palpable. HEART: First and second heart sounds are normal; no edema. LUNGS: Respiratory rate increased; decreased breath sounds. ABDOMEN: Soft, nontender, liver spleen not palpable, no masses palpable. Capone catheter PSYCH: Alert and oriented x3; mood and affect normal. MUSCULOSKELETAL:No Clubbing/cyanosis;muscles-grossly intact. Right chest wall tenderness NEUROLOGICAL: Cranial nerves grossly intact; no facial asymmetry, power and sensation grossly intact. LYMPHATICS: No lymph nodes palpable in the axilla and neck INVESTIGATIONS, reviewed in the clinical context: September 10: White count 11.6 hemoglobin 12.2 platelets 161 sodium 133 potassium 4.5 AST 112 ALT 274 CPK 1283 albumin 3.4 September 09: Creatinine kinase 1582. Glucose 222 hemoglobin 13.4 potassium 5.9 and repeat 4.4 White count 12 hemoglobin 15.1 platelets 209 potassium 4.3 creatinine 1.08 Lactic acid 4.1 AST 6 63 ALT 668 UA positive for blood RBC Chest x-ray film personally reviewed by me-right diaphragm elevated. Right rib fractures [address] thoracic or lumbar spine without contrast: Multiple right rib fractures at multiple locations suggestive of flail chest associated with a right pleural effusion slight hemothorax small right-sided pneumothorax CT chest abdomen pelvis: Ill-defined soft tissue nodule right internal gland 3.3 cm. Some tracking blood. Nonobstructive right renal calculi of to 4 mm. 1.7 parenchymal hematoma and laceration along the right lower pole right kidney. Some Slight hematoma. Left-sided colonic diverticulosis. Prostate gland enlarged. Some DJD changes. EKG tracing personally reviewed by me-normal sinus rhythm. Rate 73 2-D echocardiogram: EF 55%. No pericardial effusion. Computed tomography scan brain and C-spine without contrast: Unremarkable Assessment and plan: -Acute rhabdomyolysis secondary to fall: Slow to respond. Continue IV fluids. Follow CPK. -Left-sided sigmoid diverticulosis: Asymptomatic -Right-sided kidney stones, asymptomatic -BPH with bladder outflow obstruction Requiring Capone catheter. -Lactic acidosis, type II. No sepsis IV fluids -Right-sided pulmonary contusion, small pneumothorax Incentive spirometry -Right-sided flail chest Cardiothoracic surgery consulted. Incentive spirometry -Right-sided multiple rib fractures, liver hematoma, right perinephritic bleeding Follow with surgery -Elevated liver enzymes, liver injury Follow LFTs -Diabetes mellitus type 2, uncontrolled with hyperglycemia Glipizide 5 mg twice a day. Diabetic diet. Follow Accu-Cheks -Essential hypertension Lisinopril 10 mg daily at bedtime Pain control. Incentive spirometry. Follow LFTs. IV fluids. . Follow CPK. SCD. discussed with the patient Thank you Dr. Brush
[2021-09-10] MEDS: HYDROcodone/APAP 5-325MG 1 EACH TAB PO PRN ×2 (15:45→21:07)
[2021-09-10 16:09] LABS: Glucose,Whole Blood 245 mg/dL (75-99)
[2021-09-10 20:01] LABS: Glucose,Whole Blood 206 mg/dL (75-99)
[2021-09-10] MEDS: lisinopriL 10 MG TAB PO SCH (21:07)
[2021-09-11] MEDS: MORPHINE SULFATE 4 MG/ML SYRINGE IV PRN ×5 (00:09→21:29)
[2021-09-11] MEDS: SODIUM CHLORIDE 0.9% 1,000 ML IV SCH ×5 (01:32→19:22)
[2021-09-11] MEDS: HYDROcodone/APAP 5-325MG 1 EACH TAB PO PRN ×2 (05:24→12:21)
[2021-09-11 07:05] LABS: Glucose,Whole Blood 160 mg/dL (75-99)
--- NOTE | 2021-09-11 07:37 | P.PN ---
Subjective Progress Note Date: 09/11/21 The the patient fell off a ladder and has multi system trauma including rib fractures and liver injury adrenal injury and right kidney injury. The kidney injury was a small fracture with a subcapsular hematoma. The adrenal probably had some hemorrhage. He developed urinary retention due to immobility and pain. He has an indwelling catheter and it is clear urine. A urologic standpoint I'm not concerned about the kidney at this point in time. It'll heal on its own. The urine retention will probably disappear once he is more ambulatory and feeling better. I leave indwelling catheter until he is up moving around and able to void in a non-supine position. Objective - Vital Signs Vital signs: Vital Signs Temp 98.1 F 09/11/21 02:39 Pulse 71 09/11/21 02:39 Resp 18 09/11/21 02:39 BP 132/76 09/11/21 02:39 Pulse Ox 95 09/11/21 02:39 Intake & Output 09/10/21 09/11/21 09/11/21 18:59 06:59 18:59 Intake Total 1350 Output Total 2975 2400 Balance -1625 -2400 Intake: IV 1000 Sodium Chloride 0.9% 1, 1000 000 ml @ 200 mls/hr IV . Q5H [facility] Rx#:[id number] Oral 350 Output: Urine 2975 2400 Other: Voiding Method Indwelling Catheter Indwelling Catheter - Labs CBC & Chem 7: 09/10/21 07:27 09/10/21 07:27 Labs: Abnormal Lab Results - Last 24 Hours (Table) 09/09/21 09/10/21 09/10/21 Range/Units 10:50 07:27 07:27 WBC 11.6 H (3.8-10.6) k/uL RBC 3.93 L (4.30-5.90) m/uL Hgb 12.2 L (13.0-17.5) gm/dL Hct 38.1 L (39.0-53.0) % Neutrophils # 9.2 H (1.3-7.7) k/uL Sodium 133 L (137-145) mmol/L Glucose 196 H (74-99) mg/dL POC Glucose (mg/dL) (75-99) mg/dL Calcium 8.3 L (8.4-10.2) mg/dL AST 112 H (17-59) U/L ALT 274 H (4-49) U/L Creatine Kinase 1283 H* (55-170) U/L Myoglobin 389 H (<=72) ng/mL Total Protein 5.9 L (6.3-8.2) g/dL Albumin 3.4 L (3.5-5.0) g/dL 09/10/21 09/10/21 09/10/21 Range/Units 11:56 16:06 20:00 WBC (3.8-10.6) k/uL RBC (4.30-5.90) m/uL Hgb (13.0-17.5) gm/dL Hct (39.0-53.0) % Neutrophils # (1.3-7.7) k/uL Sodium (137-145) mmol/L Glucose (74-99) mg/dL POC Glucose (mg/dL) 195 H 245 H 206 H (75-99) mg/dL Calcium (8.4-10.2) mg/dL AST (17-59) U/L ALT (4-49) U/L Creatine Kinase (55-170) U/L Myoglobin (<=72) ng/mL Total Protein (6.3-8.2) g/dL Albumin (3.5-5.0) g/dL 09/11/21 Range/Units 07:04 WBC (3.8-10.6) k/uL RBC (4.30-5.90) m/uL Hgb (13.0-17.5) gm/dL Hct (39.0-53.0) % Neutrophils # (1.3-7.7) k/uL Sodium (137-145) mmol/L Glucose (74-99) mg/dL POC Glucose (mg/dL) 160 H (75-99) mg/dL Calcium (8.4-10.2) mg/dL AST (17-59) U/L ALT (4-49) U/L Creatine Kinase (55-170) U/L Myoglobin (<=72) ng/mL Total Protein (6.3-8.2) g/dL Albumin (3.5-5.0) g/dL Microbiology - Last 24 Hours (Table) 09/08/21 13:48 Urine Culture - Final Urine,Voided
[2021-09-11] MEDS: FUROSEMIDE 10 MG/ML 2 ML VIAL IV SCH (07:58)
[2021-09-11] MEDS: INSULIN ASPART (NovoLOG) 100 UNIT/ML VIAL SQ SCH ×3 (08:08→16:45)
[2021-09-11] MEDS: glipiZIDE 5 MG TAB PO SCH ×2 (08:09→17:00)
[2021-09-11] MEDS: LIDOCAINE 5% PATCH TOPICAL SCH (08:09)
[2021-09-11] MEDS: TAMSULOSIN 0.4 MG CAP.ER.24H PO SCH (08:09)
[2021-09-11] MEDS: FAMOTIDINE 20 MG TAB PO SCH ×2 (08:09→19:22)
[2021-09-11] MEDS: MONTELUKAST 10 MG TAB PO SCH (08:09)
--- NOTE | 2021-09-11 08:42 | XR ---
EXAMINATION TYPE: XR chest 1V portable DATE OF EXAM: 09/11/2021 Comparison: 09/10/2021 Clinical History: 65-year-old male chest trauma Findings: ACDF hardware. Somewhat low lung volumes. Right-sided flail chest redemonstrated with multiple rib fr actures. Small to moderate pleural effusion with adjacent opacity slightly increased. No appreciable pneumothorax. Impression: Slight increasing [id number] right pleural effusion with adjacent atelectasis and/or consolida tion. Known right-sided flail chest.
[2021-09-11] MEDS: IPRATROPIUM-ALBUTEROL 3 ML NEB INHALATION SCH ×4 (08:49→21:50)
[2021-09-11 09:35] LABS: African American GFR (CKD) 102.1 (60.0-200.0); Albumin 3.4 g/dL (3.8-4.9); Anion Gap 7.6 mmol/L (10.00-18.00); BUN/Creat Ratio 14.33 Ratio (12.00-20.00); Blood Urea Nitrogen 12.9 mg/dL (9.0-27.0); Calcium 8.2 mg/dL (8.7-10.3); Carbon Dioxide 24.4 mmol/L (20.0-27.5); Globulin 1.7 g/dL (1.6-3.3); Non-African American GFR(CKD) 88.1 (60.0-200.0); Potassium 4.2 mmol/L (3.5-5.5); Total Bilirubin 0.6 mg/dL (0.30-1.20); Total Protein 5.1 g/dL (6.2-8.2)
[2021-09-11 10:32] LABS: Basophils # (A) 0.06 X 10*3/uL (0.00-0.10); Basophils % (A) 0.6 %; Eosinophils # (A) 0.22 X 10*3/uL (0.04-0.35); Eosinophils % (A) 2.3 %; HCT 32.5 % (39.6-50.0); HGB 10.7 g/dL (13.0-17.0); Immature Grans, Automated 0.4 %; Lymphocytes # (A) 1.53 X 10*3/uL (0.90-5.00); Lymphocytes % (A) 15.7 %; MCHC 32.9 g/dL (32.0-37.0); MCV 94.2 fL (80.0-97.0); Mean Platelet Volume 10.3 fL (9.5-12.2); Monocytes # (A) 1.07 X 10*3/uL (0.20-1.00); NRBC Per 100 WBC 0 /100 WBCS (0.0-0.0); Neutrophils # (A) 6.85 X 10*3/uL (1.80-7.70); Platelet Count 136 X 10*3/uL (140-440); RBC 3.45 X 10*6/uL (4.40-5.60); RBC Morphology NORMAL; RDW 13.2 % (11.5-14.5); WBC 9.77 X 10*3/uL (4.50-10.00)
[2021-09-11] MEDS: DOCUSATE 100 MG CAP PO SCH ×2 (10:50→19:22)
--- NOTE | 2021-09-11 11:01 | P.PN ---
Subjective Progress Note Date: 09/11/21 CHIEF COMPLAINT: Fall from ladder with multiple trauma injuries HISTORY OF PRESENT ILLNESS: Patient is transferred out of the ICU yesterday. He is currently on regular medical floor. Patient is sitting in the bedside chair. He reports his pain is controlled. He is still requiring IV pain medication. Denies any new pain. He is having flatus. No bowel movement. He is requesting a stool softener. He's able to eat a small amount of his tray. Afebrile. On 2 L satting at 92%. WBC has normalized from 11.6-9.7 hemoglobin is down from 12.2-10.7 platelets 136 sodium 135 potassium 4.2 creatinine 0.9 liver enzymes trending down CK trending down from 1283-723 mild globulin was elevated at 389. Patient's urine is clear in the Capone catheter Chest x-ray slight increasing small moderate right pleural effusion with adjacent atelectasis and/or consolidation. Known right-sided flail chest. PHYSICAL EXAM: VITAL SIGNS: Reviewed GENERAL: Well-developed in no acute distress. HEENT: No sclera icterus. Extraocular movements grossly intact. Moist buccal mucosa. Head is atraumatic, normocephalic. Hears conversational speech. No nasal drainage. NECK: Supple without lymphadenopathy. CHEST: Non-labored respirations and equal bilateral excursions. CARDIOVASCULAR: Palpable 2+ radial pulses. ABDOMEN: Soft. Nondistended. Nontender. MUSCULOSKELETAL: No clubbing or cyanosis. NEUROLOGIC: No focal or lateralizing signs. Cranial nerves II through XII grossly intact. PSYCH: Appropriate affect. Alert and oriented to person, place and time. SKIN: Well perfused. Good skin turgor. ASSESSMENT: 1. Fall from ladder with multiple trauma injuries 2. Flail chest on the right with rib fractures 3 through 10 except #9 3. Right small hemothorax 4. Right small pneumothorax 5. Pulmonary contusion 6. Liver hematoma 7. Kidney laceration with subcapsular hematoma 8. Adrenal hematoma versus adrenal adenoma 9. Acute rhabdomyolysis due to patient's injuries 10. Loss of consciousness 11. History of diabetes mellitus with elevated glucose 12. History of hypertension 13. Elevated LFTs due to liver injury 14. Urinary retention 15. Lactic acidosis due to the rhabdomyolysis PLAN -Continue supportive care -Patient followed closely by pulmonary service, cardiothoracic team, urology and medicine service -Add Colace -Continue to monitor oxygen saturation -Continue pain management -Encouraged patient to use incentive spirometer -Continue IV fluids and IV Lasix for the rhabdomyolysis -Repeat CK level, CBC and CMP in a.m. -Continue Capone catheter -Prophylaxis Protonix and DVT prophylaxis SCDs Physician Ct Scan Tech note has been reviewed by physician. Signing provider agrees with the documented findings, assessment, and plan of care. Objective - Vital Signs Vital signs: Vital Signs Temp 99.5 F 09/11/21 08:00 Pulse 74 09/11/21 09:00 Resp 18 09/11/21 09:00 BP 136/75 09/11/21 08:00 Pulse Ox 92 L 09/11/21 08:49 Intake & Output 09/10/21 09/11/21 09/11/21 18:59 06:59 18:59 Intake Total 1350 Output Total 2975 2400 1000 Balance -1625 -2400 -1000 Intake: IV 1000 Sodium Chloride 0.9% 1, 1000 000 ml @ 200 mls/hr IV . Q5H [facility] Rx#:[id number] Oral 350 Output: Urine 2975 2400 1000 Other: Voiding Method Indwelling Catheter Indwelling Catheter Indwelling Catheter - Labs CBC & Chem 7: 09/11/21 05:50 09/11/21 05:50 Labs: Abnormal Lab Results - Last 24 Hours (Table) 09/09/21 09/10/21 09/10/21 Range/Units 10:50 11:56 16:06 RBC (4.40-5.60) X 10*6/uL Hgb (13.0-17.0) g/dL Hct (39.6-50.0) % Plt Count (140-440) X 10*3/uL Plt Count Comment Monocytes # (0.20-1.00) X 10*3/uL Anion Gap (10.00-18.00) mmol/L Glucose (70-110) mg/dL POC Glucose (mg/dL) 195 H 245 H (75-99) mg/dL Calcium (8.7-10.3) mg/dL AST (14-35) U/L ALT (10-49) U/L Creatine Kinase (35-257) U/L Myoglobin 389 H (<=72) ng/mL Total Protein (6.2-8.2) g/dL Albumin (3.8-4.9) g/dL 09/10/21 09/11/21 09/11/21 Range/Units 20:00 05:50 05:50 RBC 3.45 L (4.40-5.60) X 10*6/uL Hgb 10.7 L (13.0-17.0) g/dL Hct 32.5 L (39.6-50.0) % Plt Count 136 L (140-440) X 10*3/uL Plt Count Comment DECREASED A Monocytes # 1.07 H (0.20-1.00) X 10*3/uL Anion Gap 7.60 L (10.00-18.00) mmol/L Glucose 181 H (70-110) mg/dL POC Glucose (mg/dL) 206 H (75-99) mg/dL Calcium 8.2 L (8.7-10.3) mg/dL AST 50 H (14-35) U/L ALT 170 H (10-49) U/L Creatine Kinase 723 H (35-257) U/L Myoglobin (<=72) ng/mL Total Protein 5.1 L (6.2-8.2) g/dL Albumin 3.4 L (3.8-4.9) g/dL 09/11/21 Range/Units 07:04 RBC (4.40-5.60) X 10*6/uL Hgb (13.0-17.0) g/dL Hct (39.6-50.0) % Plt Count (140-440) X 10*3/uL Plt Count Comment Monocytes # (0.20-1.00) X 10*3/uL Anion Gap (10.00-18.00) mmol/L Glucose (70-110) mg/dL POC Glucose (mg/dL) 160 H (75-99) mg/dL Calcium (8.7-10.3) mg/dL AST (14-35) U/L ALT (10-49) U/L Creatine Kinase (35-257) U/L Myoglobin (<=72) ng/mL Total Protein (6.2-8.2) g/dL Albumin (3.8-4.9) g/dL Microbiology - Last 24 Hours (Table) 09/08/21 13:48 Urine Culture - Final Urine,Voided
[2021-09-11 11:15] LABS: Glucose,Whole Blood 202 mg/dL (75-99)
[2021-09-11 13:20] VITALS: BMI 32.4
--- NOTE | 2021-09-11 14:10 | P.PN ---
Subjective Progress Note Date: 09/11/21 65-year-old male, who was evaluated in the emergency room yesterday, September 08. He seen today in room 264. The patient sees Dr. Sarabia and jaylen as a primary. He apparently fell from a ladder. He was trying to get a recluse out of his garage. He fell backwards and landed on his head. He apparently lost consciousness for about 40 minutes. He apparently was discovered by his grandson, call for help. When he was picked up by EMS, he apparently was having some amnesia, and repetitive questioning. He also complained of some pain in his right upper chest and back area, with radiation to the right shoulder area. The patient was not on any blood thinners. The patient has a history of hypertension, diabetes, and BPH. When I spoke to the ER physician, he told me that the patient was discovered to have multiple rib fractures on the right lateral chest on the right, fractured ribs 3 through 10 on the right, a small pneumothorax and hemothorax on the right, and a pulmonary contusion. In addit ion there was a liver hematoma, kidney laceration, and adrenal hematoma. White count 14.6, hemoglobin 13.4, hematocrit 41.8, and platelet count. 228,000. Sodium 132, potassium 5.9, chlorides 99, CO2 20, BUN 20, and creatinine 1.17. The patient's lactic acid initially was 5.4. Repeat was 3.3. AST was 379, and ALT was 496. CT of the head and cervical spine, was essentially unremarkable. CT of the chest abdomen pelvis revealed a flail chest on the right, with fractures of ribs 3 through 10, except rib 9, underlying small hemothorax and 5% pneumothorax, pulmonary contusion, grade 3 liver hematoma, adrenal hematoma, grade 3 right renal injury with upper pole contusion, among other things. Progress note dated 09/10/2021. 65-year-old male, again seen in room 264. Other than pain, the patient is doing relatively well. He remains on saline at 200 mL an hour, and O2 at 2 L. I've asked him to use incentive spirometer every hour while awake. Clinically, the patient stable for transfer out of the intensive care unit. Laboratory data includes a white count 11.6, hemoglobin 12.2, hematocrit 38.1, and platelet count 161,000. Sodium 133, potassium 4.5, chlorides 102, CO2 27, anion gap 4, BUN 15, and creatinine 1.02. His total CK was 1283. AST 112, ALT 274. Albumin 3.4. The patient's chest x-ray show some bibasilar infiltrates and/or atelectasis, right greater than left. The patient is seen today 09/11/2021 in follow-up on the regular medical floor. He is currently sitting up in a chair at the bedside. Awake and alert in no acute distress. His pain is well controlled. He's down to 2 L nasal cannula maintaining good O2 saturations in the 90s. Chest x-ray does continue to show right lower lobe collapse. He is encouraged regarding the increased use the incentive spirometer and cough and deep breathing exercises. Urine culture reveals no growth. White count 9.7. Hemoglobin 10.7. Platelet count 136. Sodium 135. Potassium 4.2. Bicarb 24. BUN 13. Creatinine 0.9. AST 50. ALT 170. He is continued on Singulair, DuoNeb inhalations. Currently on diuretics 20 mg IV every 12 hours. He is currently in a negative 4 liter balance. Remains on normal saline at 200 ML's per hour per trauma services. Objective - Vital Signs Vital signs: Vital Signs Temp 99.5 F 09/11/21 08:00 Pulse 72 09/11/21 12:52 Resp 18 09/11/21 09:00 BP 136/75 09/11/21 08:00 Pulse Ox 92 L 09/11/21 08:49 Intake & Output 09/10/21 09/11/21 09/11/21 18:59 06:59 18:59 Intake Total 1350 Output Total 2975 2400 1000 Balance -1625 -2400 -1000 Weight 105.6 kg Intake: IV 1000 Sodium Chloride 0.9% 1, 1000 000 ml @ 200 mls/hr IV . Q5H [facility] Rx#:[id number] Oral 350 Output: Urine 2975 2400 1000 Other: Voiding Method Indwelling Catheter Indwelling Catheter Indwelling Catheter - Exam GENERAL EXAM: Alert, very pleasant 65-year-old gentleman, up in a chair at the bedside, on 2 L nasal cannula, comfortable in no apparent distress. HEAD: Normocephalic. EYES: Normal reaction of pupils, equal size. NOSE: Clear with pink turbinates. THROAT: No erythema or exudates. NECK: No masses, no JVD. CHEST: No chest wall deformity. LUNGS: Equal air entry with no crackles, wheeze, rhonchi or dullness. CVS: S1 and S2 normal with no audible murmur, regular rhythm. ABDOMEN: No hepatosplenomegaly, normal bowel sounds, no guarding or rigidity. SPINE: No scoliosis or deformity SKIN: No rashes CENTRAL NERVOUS SYSTEM: No focal deficits, tone is normal in all 4 extremities. EXTREMITIES: There is no peripheral edema. No clubbing, no cyanosis. Peripheral pulses are intact. - Labs CBC & Chem 7: 09/11/21 05:50 09/11/21 05:50 Labs: Abnormal Lab Results - Last 24 Hours (Table) 09/09/21 09/10/21 09/10/21 Range/Units 10:50 16:06 20:00 RBC (4.40-5.60) X 10*6/uL Hgb (13.0-17.0) g/dL Hct (39.6-50.0) % Plt Count (140-440) X 10*3/uL Plt Count Comment Monocytes # (0.20-1.00) X 10*3/uL Anion Gap (10.00-18.00) mmol/L Glucose (70-110) mg/dL POC Glucose (mg/dL) 245 H 206 H (75-99) mg/dL Calcium (8.7-10.3) mg/dL AST (14-35) U/L ALT (10-49) U/L Creatine Kinase (35-257) U/L Myoglobin 389 H (<=72) ng/mL Total Protein (6.2-8.2) g/dL Albumin (3.8-4.9) g/dL 09/11/21 09/11/21 09/11/21 Range/Units 05:50 05:50 07:04 RBC 3.45 L (4.40-5.60) X 10*6/uL Hgb 10.7 L (13.0-17.0) g/dL Hct 32.5 L (39.6-50.0) % Plt Count 136 L (140-440) X 10*3/uL Plt Count Comment DECREASED A Monocytes # 1.07 H (0.20-1.00) X 10*3/uL Anion Gap 7.60 L (10.00-18.00) mmol/L Glucose 181 H (70-110) mg/dL POC Glucose (mg/dL) 160 H (75-99) mg/dL Calcium 8.2 L (8.7-10.3) mg/dL AST 50 H (14-35) U/L ALT 170 H (10-49) U/L Creatine Kinase 723 H (35-257) U/L Myoglobin (<=72) ng/mL Total Protein 5.1 L (6.2-8.2) g/dL Albumin 3.4 L (3.8-4.9) g/dL 09/11/21 Range/Units 11:14 RBC (4.40-5.60) X 10*6/uL Hgb (13.0-17.0) g/dL Hct (39.6-50.0) % Plt Count (140-440) X 10*3/uL Plt Count Comment Monocytes # (0.20-1.00) X 10*3/uL Anion Gap (10.00-18.00) mmol/L Glucose (70-110) mg/dL POC Glucose (mg/dL) 202 H (75-99) mg/dL Calcium (8.7-10.3) mg/dL AST (14-35) U/L ALT (10-49) U/L Creatine Kinase (35-257) U/L Myoglobin (<=72) ng/mL Total Protein (6.2-8.2) g/dL Albumin (3.8-4.9) g/dL Microbiology - Last 24 Hours (Table) 09/08/21 13:48 Urine Culture - Final Urine,Voided Assessment and Plan Assessment: 1 Acute hypoxemic respiratory failure secondary to status post fall from a ladder, with multiple injuries including flail chest on the right, fractures of ribs 3 through 10 except #9, on the right, small hemothorax, pulmonary contusion, small pneumothorax, liver hematoma, kidney laceration, and adrenal hematoma. 2 Apparent lost of consciousness from fall, for 40 minutes. 3 History of BPH. 4 History of hypertension. 5 History of diabetes mellitus. Plan: The patient was seen and evaluated Chest x-ray and labs reviewed Encouraged regarding the increased use the incentive spirometer and cough and deep breathing exercises Increase his activity as tolerated Titrate down the FiO2 as tolerated Continue bronchodilators, Singulair We'll continue to follow I have personally seen and examined the patient, performed the documentation and the assessment and plan as written. Number of minutes spent on the visit: 10.
[2021-09-11 15:39] LABS: Glucose,Whole Blood 233 mg/dL (75-99)
--- NOTE | 2021-09-11 17:44 | P.PN ---
Progress Note - Text Progress Note Date: 09/11/21 - Chief Complaint Fall Hospital course: This is a very pleasant 65-year-old patient who follows with Dr. Riley. Chronic stable medical conditions include diabetes, hypertension, BPH and history of kidney stones. 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 Patient was up on a ladder trying to get total for her: And he fell. As a result patient had multiple injuries. Patient developed a flail chest on the right side of the rib fractures 3 through 10, small hemothorax and pneumothorax, pulmonary contusion, liver hematoma could not kidney laceration with subcapsular hematoma, anginal hematoma possibly, patient is currently in the ICU. Decreased appetite. Significant pain. Awake. Had urinary retention and had to have a catheter. at the bedside. Denies any bleeding from the nose. Fell about 10 feet backwards. Landed on his back and possibly hit his head. Was possibly unconscious for about 15 minutes. Admitted with acute rhabdomyolysis, active of Capone catheter placed because of bladder outflow obstruction, right-sided pulmonary contusion, right-sided flail chest, multiple right-sided rib fractures, elevated liver enzymes, liver injury. September 10: Moved to the medical floor. Having pain on the right chest wall. Eating little. Has a Capone catheter. Right-sided pulmonary hemorrhage/atelectasis on x-ray. Has not passed any flatus. September 10: Eating better. Using incentive spirometry. Capone catheter with clear urine. Pain at fracture site persist. Has passed flatus. Up in a recliner. Rhabdomyolysis improving. Right-sided atelectasis/hemothorax persists Active Medications Acetaminophen (Acetaminophen Tab 325 Mg Tab) 650 mg PO Q4HR PRN PRN Reason: Fever and/or Mild Pain Hydrocodone Bitart/Acetaminophen (Hydrocodone/Apap 5-325mg 1 Each Tab) 1 each PO Q4HR PRN PRN Reason: Moderate Pain Last Admin: 09/11/21 12:21 Dose: 1 each Documented by: Albuterol/Ipratropium (Ipratropium-Albuterol 3 Ml Neb) 3 ml INHALATION RT-QID [facility] Last Admin: 09/11/21 17:08 Dose: 3 ml Documented by: Docusate Sodium (Docusate 100 Mg Cap) 100 mg PO BID [facility] Last Admin: 09/11/21 10:50 Dose: 100 mg Documented by: Famotidine (Famotidine 20 Mg Tab) 20 mg PO BID [facility] Last Admin: 09/11/21 08:09 Dose: 20 mg Documented by: Furosemide (Furosemide 10 Mg/Ml 2 Ml Vial) 20 mg IV Q12HR [facility] Last Admin: 09/11/21 07:58 Dose: 20 mg Documented by: Glipizide (Glipizide 5 Mg Tab) 5 mg PO AC-BID [facility] Last Admin: 09/11/21 17:00 Dose: 5 mg Documented by: Sodium Chloride (Saline 0.9%) 1,000 mls @ 200 mls/hr IV .Q5H [facility] Last Admin: 09/11/21 13:20 Dose: 200 mls/hr Documented by: Insulin Aspart (Insulin Aspart (Novolog) 100 Unit/Ml Vial) 0 unit SQ AC-TID [facility]; Protocol Last Admin: 09/11/21 16:45 Dose: 5 unit Documented by: Lidocaine (Lidocaine 5% Patch) 1 patch TOPICAL DAILY [facility]; Protocol Last Admin: 09/11/21 08:09 Dose: 1 patch Documented by: Lisinopril (Lisinopril 10 Mg Tab) 10 mg PO HS [facility] Last Admin: 09/10/21 21:07 Dose: 10 mg Documented by: Montelukast Sodium (Montelukast 10 Mg Tab) 10 mg PO DAILY [facility] Last Admin: 09/11/21 08:09 Dose: 10 mg Documented by: Morphine Sulfate (Morphine Sulfate 4 Mg/Ml Syringe) 4 mg IV Q2HR PRN PRN Reason: Pain Scale 8 to 10 Last Admin: 09/11/21 12:23 Dose: 4 mg Documented by: Naloxone HCl (Naloxone 0.4 Mg/Ml 1 Ml Vial) 0.2 mg IV Q2M PRN PRN Reason: Opioid Reversal Ondansetron HCl (Ondansetron 4 Mg/2 Ml Vial) 4 mg IVP Q6HR PRN PRN Reason: Nausea And Vomiting Last Admin: 09/09/21 00:26 Dose: 4 mg Documented by: Tamsulosin HCl (Tamsulosin 0.4 Mg Cap.Er.24h) 0.4 mg PO DAILY [facility] Last Admin: 09/11/21 08:09 Dose: 0.4 mg Documented by: Past medical history to include: Diabetes, hypertension, BPH, kidney stone with a double-J stent on the left side previously, 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 Alcohol rarely. Does smoke in the past. Works at the [employer] [place] [employer] Family history: CAD Physical examination: VITAL SIGNS: 99.4, 82, 16, 132/80, 94% on 2 L GENERAL: Reclining in chair, awake EYES: Pupils equal. Conjunctiva normal. HEENT: External appearance of nose and ears normal, oral cavity grossly normal. NECK: JVD not raised; masses not palpable. HEART: First and second heart sounds are normal; no edema. LUNGS: Respiratory rate increased; decreased breath sounds. ABDOMEN: Soft, nontender, liver spleen not palpable, no masses palpable. Capone catheter -clear urine PSYCH: Alert and oriented x3; mood and affect normal. MUSCULOSKELETAL:No Clubbing/cyanosis;muscles-grossly intact. Right chest wall tenderness INVESTIGATIONS, reviewed in the clinical context: September 11: White count 9.7 hemoglobin 10.7 platelets 136 potassium 4.2 creatinine 0.9 total bilirubin 0.6 AST 50 ALT 170 CPK 723 September 10: White count 11.6 hemoglobin 12.2 platelets 161 sodium 133 potassium 4.5 AST 112 ALT 274 CPK 1283 albumin 3.4 September 09: Creatinine kinase 1582. Glucose 222 hemoglobin 13.4 potassium 5.9 and repeat 4.4 White count 12 hemoglobin 15.1 platelets 209 potassium 4.3 creatinine 1.08 Lactic acid 4.1 AST 6 63 ALT 668 UA positive for blood RBC Chest x-ray film personally reviewed by me-right diaphragm elevated. Right rib fractures [address] thoracic or lumbar spine without contrast: Multiple right rib fractures at multiple locations suggestive of flail chest associated with a right pleural effusion slight hemothorax small right-sided pneumothorax CT chest abdomen pelvis: Ill-defined soft tissue nodule right internal gland 3.3 cm. Some tracking blood. Nonobstructive right renal calculi of to 4 mm. 1.7 parenchymal hematoma and laceration along the right lower pole right kidney. Some Slight hematoma. Left-sided colonic diverticulosis. Prostate gland enlarged. Some DJD changes. EKG tracing personally reviewed by me-normal sinus rhythm. Rate 73 2-D echocardiogram: EF 55%. No pericardial effusion. Computed tomography scan brain and C-spine without contrast: Unremarkable Assessment and plan: -Acute rhabdomyolysis secondary to fall: Improving Continue IV fluids. Follow CPK. -Left-sided sigmoid diverticulosis: Asymptomatic -Right-sided kidney stones, asymptomatic -BPH with bladder outflow obstruction Continue Capone catheter. -Lactic acidosis, type II. No sepsis IV fluids -Right-sided pulmonary contusion/atelectasis, small pneumothorax Incentive spirometry -Right-sided flail chest Cardiothoracic surgery follow. Incentive spirometry -Right-sided multiple rib fractures, liver hematoma, right perinephritic bleeding Follow with surgery -Elevated liver enzymes, liver injury: Improving Follow LFTs -Diabetes mellitus type 2, uncontrolled with hyperglycemia Glipizide 5 mg twice a day. Diabetic diet. Follow Accu-Cheks. Add Glucophage -Essential hypertension Lisinopril 10 mg daily at bedtime Pain control. Incentive spirometry. Follow LFTs. IV fluids. . Follow CPK. Add Glucophage. Add Metamucil. Decrease IV fluids to 100 mL an hour. ELADIA Lasveto. Thank you Dr. Brush
[2021-09-11] MEDS: metFORMIN 500 MG TAB PO SCH (18:00)
[2021-09-11] MEDS: PSYLLIUM HUSK 100% 6 GM PACKET PO SCH (19:22)
[2021-09-11] MEDS: lisinopriL 10 MG TAB PO SCH (19:22)
[2021-09-11 21:28] LABS: Glucose,Whole Blood 187 mg/dL (75-99)
[2021-09-12] MEDS: HYDROcodone/APAP 5-325MG 1 EACH TAB PO PRN (04:51)
--- NOTE | 2021-09-12 05:07 | P.CONS ---
History of Present Illness - Chief Complaint Walking difficulty - History of Present Illness I had the opportunity to see patient for inpatient consultation with regard to walking difficulty. He was admitted to Dr. Jacobson September 08 history of fall 5 foot off ladder with loss of consciousness 15 minutes and retrograde amnesia. Dr. Hawkins diagnosed right ribs and pneumothorax. Seen by Dr. Nuñez for hematuria. Seen by Dr. Berumen for the pulmonary. Seen by Dr. Newberry for pain control and pain appears be adequately controlled currently. CT medically by Dr. Cárdenas. Note workup included CT of head which was negative and C-spine is demonstrates multiple canal stenoses. CTA and CTA demonstrates 5% pneumothorax as well as right rib fractures and right base atelectasis. CT thoracolumbar spine demonstrates fusion L1-3 and bilateral stenosis L3-5. Pelvic x-ray negative. Chest x-ray demonstrates mild to moderate right pleural effusion with consolidation. His started therapy. PT reports minimal assistance bed mobility and transfer and supervision for gait 100 feet with walker. Reports pain 10/10. OT reports minimal assist for grooming and, upper and lower dressing. 2 person minimal assistance functional ability and transfer. Previous functional history elicited from patient: 65-year-old right-handed white male who is lives in one floor home with . Both retired. W seble generally does the cooking and laundry in both drive. Patient independent with standing shower and gait without device. PCP Dr. Riley. Denies tobacco or alcohol. Review of Systems Review of systems: ENT: Denies sneezes or discharge. Eyes: Denies discharge or photophobia. Cardiac: Denies chest pain or palpitation. Pulmonary: Right chest wall discomfort and with shortness of breath. Gastrointestinal: Denies nausea, emesis, constipation, diarrhea. Genitourinary: Denies discharge or frequency. Musculoskeletal: Denies muscle or bone aches. Neurologic: Denies motor or sensory change. Endocrine: Denies shakes or sweats. Oncology: Denies cancers. Dermatologic: Denies rash, itching, pruritus. ALLERGY/immunology: Denies sneezes, rashes. Past Medical History Past Medical History: Diabetes Mellitus, Hypertension, Prostate Disorder History of Any Multi-Drug Resistant Organisms: None Reported Past Surgical History: Back Surgery, Cholecystectomy, Tonsillectomy Past Psychological History: No Psychological Hx Reported Smoking Status: Former smoker Past Alcohol Use History: Rare Past Drug Use History: None Reported - Past Family History Mother Family Medical History: Coronary Artery Disease (CAD) Additional Family Medical History / Comment(s): from myocardial infarction at 63 years old Father Family Medical History: Coronary Artery Disease (CAD) Additional Family Medical History / Comment(s): in his 80s from heart disease Medications and Allergies Home Medications Medication Instructions Recorded Confirmed Type Montelukast [Singulair] 10 mg PO DAILY 09/08/21 09/08/21 History Multivitamin/Iron/Folic Acid 1 tab PO DAILY 09/08/21 09/08/21 History [Centrum Adults Tablet] Tamsulosin HCl [Flomax] 0.4 mg PO DAILY 09/08/21 09/08/21 History glipiZIDE [Glucotrol] 10 mg PO BID 09/08/21 09/08/21 History lisinopriL [Zestril] 10 mg PO HS 09/08/21 09/08/21 History metFORMIN HCL [Glucophage] 1,000 mg PO BID 09/08/21 09/08/21 History Allergies Allergy/AdvReac Type Severity Reaction Status Date / Time No Known Allergies Allergy Verified 09/08/21 16:40 Physical Exam Vitals: Vital Signs Temp Pulse Pulse Resp BP Pulse Ox 09/12/21 01:54 98 F 92 15 121/78 96 09/11/21 21:58 78 09/11/21 21:50 80 09/11/21 19:14 17 09/11/21 18:30 98.1 F 90 17 156/82 94 L 09/11/21 17:17 80 09/11/21 17:09 76 09/11/21 14:00 99.4 F 82 16 132/80 94 L 09/11/21 12:52 72 09/11/21 12:44 78 09/11/21 09:00 74 18 09/11/21 08:49 89 18 92 L 09/11/21 08:00 99.5 F 74 18 136/75 96 Intake and Output 09/11/21 09/11/21 09/12/21 14:59 22:59 06:59 Output Total 1000 2000 Balance -1000 -1999 Output: Urine 1000 2000 Other: Voiding Method Indwelling Catheter Indwelling Catheter # Voids 1 # Bowel Movements 1 Weight 105.6 kg Skin: Atrophic, intact. General: Medium build and comfortable appearance. Head: Normocephalic, atraumatic. Eyes: Symmetric. Pupils equal round. Ears: Symmetric. Hearing within normal limits. Mouth: Clear. Neck: Supple. Carotid without bruit. Cardiac: Regular rate and rhythm. Lungs: Clear anteriorly and posteriorly. Abdomen: Soft active nontender. Extremities: Normal tone. Neurological: Mental status: Alert, cooperative, pleasant. Cranial nerves: Symmetric facial tone and trapezius. Motor: Active movement all 4 limbs. Sensation: Intact throughout. DTRs: Symmetric and equal throughout. Mobility: Reports physical assist for mobility in room. Results CBC & Chem 7: 09/11/21 05:50 09/11/21 05:50 Labs: Abnormal Lab Results - Last 24 Hours (Table) 09/09/21 09/11/21 09/11/21 Range/Units 10:50 05:50 05:50 RBC 3.45 L (4.40-5.60) X 10*6/uL Hgb 10.7 L (13.0-17.0) g/dL Hct 32.5 L (39.6-50.0) % Plt Count 136 L (140-440) X 10*3/uL Plt Count Comment DECREASED A Monocytes # 1.07 H (0.20-1.00) X 10*3/uL Anion Gap 7.60 L (10.00-18.00) mmol/L Glucose 181 H (70-110) mg/dL POC Glucose (mg/dL) (75-99) mg/dL Calcium 8.2 L (8.7-10.3) mg/dL AST 50 H (14-35) U/L ALT 170 H (10-49) U/L Creatine Kinase 723 H (35-257) U/L Myoglobin 389 H (<=72) ng/mL Total Protein 5.1 L (6.2-8.2) g/dL Albumin 3.4 L (3.8-4.9) g/dL 09/11/21 09/11/21 09/11/21 Range/Units 07:04 11:14 15:37 RBC (4.40-5.60) X 10*6/uL Hgb (13.0-17.0) g/dL Hct (39.6-50.0) % Plt Count (140-440) X 10*3/uL Plt Count Comment Monocytes # (0.20-1.00) X 10*3/uL Anion Gap (10.00-18.00) mmol/L Glucose (70-110) mg/dL POC Glucose (mg/dL) 160 H 202 H 233 H (75-99) mg/dL Calcium (8.7-10.3) mg/dL AST (14-35) U/L ALT (10-49) U/L Creatine Kinase (35-257) U/L Myoglobin (<=72) ng/mL Total Protein (6.2-8.2) g/dL Albumin (3.8-4.9) g/dL 09/11/21 Range/Units 21:26 RBC (4.40-5.60) X 10*6/uL Hgb (13.0-17.0) g/dL Hct (39.6-50.0) % Plt Count (140-440) X 10*3/uL Plt Count Comment Monocytes # (0.20-1.00) X 10*3/uL Anion Gap (10.00-18.00) mmol/L Glucose (70-110) mg/dL POC Glucose (mg/dL) 187 H (75-99) mg/dL Calcium (8.7-10.3) mg/dL AST (14-35) U/L ALT (10-49) U/L Creatine Kinase (35-257) U/L Myoglobin (<=72) ng/mL Total Protein (6.2-8.2) g/dL Albumin (3.8-4.9) g/dL Assessment and Plan (1) Fall from ladder Current Visit: Yes Status: Acute Code(s): W11.XXXA - FALL ON AND FROM LADDER, INITIAL ENCOUNTER SNOMED Code(s): 67772249 (2) Flail chest Current Visit: Yes Status: Acute Code(s): S22.5XXA - FLAIL CHEST, INITIAL ENCOUNTER FOR CLOSED FRACTURE SNOMED Code(s): 27513141 (3) Head injury Current Visit: Yes Status: Acute Code(s): S09.90XA - UNSPECIFIED INJURY OF HEAD, INITIAL ENCOUNTER SNOMED Code(s): 04158029 Plan: Comments and plan: Patient suffered fall off ladder resultant head injury with loss of consciousness, right rib fractures and pneumothorax with flail chest and now with walking difficulty. Have discussed inpatient rehab with patient. apparently works at [employer] and they would prefer transfer to [place] lying-in hospital bed there if possible. Otherwise would consider inpatient rehab.
[2021-09-12 06:16] LABS: ALT 106 U/L (4-49); AST 37 U/L (17-59); African American GFR (CKD) >90 (>60 ml/min/1.73 sqM); Albumin 2.7 g/dL (3.5-5.0); Albumin/Globulin Ratio 1.1; Alkaline Phosphatase 40 U/L (38-126); Anion Gap 4 mmol/L; Blood Urea Nitrogen 14 mg/dL (9-20); Carbon Dioxide 25 mmol/L (22-30); Chloride 104 mmol/L (98-107); Creatine Kinase 379 U/L (55-170); Globulin 2.5 g/dL; Glucose 209 mg/dL (74-99); Non-African American GFR(CKD) >90 (>60 ml/min/1.73 sqM); Potassium 3.9 mmol/L (3.5-5.1); Sodium 133 mmol/L (137-145); Total Bilirubin 0.9 mg/dL (0.2-1.3); Total Protein 5.2 g/dL (6.3-8.2)
[2021-09-12 06:52] LABS: Glucose,Whole Blood 205 mg/dL (75-99)
[2021-09-12] MEDS: glipiZIDE 5 MG TAB PO SCH ×2 (08:07→17:09)
[2021-09-12] MEDS: metFORMIN 500 MG TAB PO SCH ×2 (08:07→17:09)
[2021-09-12] MEDS: INSULIN ASPART (NovoLOG) 100 UNIT/ML VIAL SQ SCH ×3 (08:07→17:09)
--- NOTE | 2021-09-12 08:34 | P.PN ---
Subjective Progress Note Date: 09/12/21 The patient continues to recuperate from his injuries after he fell off the ladder. He is feeling better. He is still not very mobile. The catheter is draining clear urine. We will leave the catheter in place until he is more ambulatory. Patient prefers. Objective - Vital Signs Vital signs: Vital Signs Temp 97.6 F 09/12/21 07:37 Pulse 71 09/12/21 07:37 Resp 16 09/12/21 07:37 BP 141/86 09/12/21 07:37 Pulse Ox 95 09/12/21 07:37 Intake & Output 09/11/21 09/12/21 09/12/21 18:59 06:59 18:59 Intake Total 2200 Output Total 2500 2600 Balance -2500 -400 Weight 105.6 kg Intake: Intake, IV Titration 1200 Amount Sodium Chloride 0.9% 1, 1200 000 ml @ 100 mls/hr IV . Q10H [facility] Rx#:[id number] Oral 1000 Output: Urine 2500 2600 Other: Voiding Method Indwelling Catheter Indwelling Catheter # Voids 2 1 # Bowel Movements 1 0 - Labs CBC & Chem 7: 09/11/21 05:50 09/12/21 05:45 Labs: Abnormal Lab Results - Last 24 Hours (Table) 09/11/21 09/11/21 09/11/21 Range/Units 05:50 05:50 11:14 RBC 3.45 L (4.40-5.60) X 10*6/uL Hgb 10.7 L (13.0-17.0) g/dL Hct 32.5 L (39.6-50.0) % Plt Count 136 L (140-440) X 10*3/uL Plt Count Comment DECREASED A Monocytes # 1.07 H (0.20-1.00) X 10*3/uL Sodium (137-145) mmol/L Anion Gap 7.60 L (10.00-18.00) mmol/L Glucose 181 H (70-110) mg/dL POC Glucose (mg/dL) 202 H (75-99) mg/dL Calcium 8.2 L (8.7-10.3) mg/dL AST 50 H (14-35) U/L ALT 170 H (10-49) U/L Creatine Kinase 723 H (35-257) U/L Total Protein 5.1 L (6.2-8.2) g/dL Albumin 3.4 L (3.8-4.9) g/dL 09/11/21 09/11/21 09/12/21 Range/Units 15:37 21:26 05:45 RBC (4.40-5.60) X 10*6/uL Hgb (13.0-17.0) g/dL Hct (39.6-50.0) % Plt Count (140-440) X 10*3/uL Plt Count Comment Monocytes # (0.20-1.00) X 10*3/uL Sodium 133 L (137-145) mmol/L Anion Gap (10.00-18.00) mmol/L Glucose 209 H (70-110) mg/dL POC Glucose (mg/dL) 233 H 187 H (75-99) mg/dL Calcium 8.0 L (8.7-10.3) mg/dL AST (14-35) U/L ALT 106 H (10-49) U/L Creatine Kinase 379 H (35-257) U/L Total Protein 5.2 L (6.2-8.2) g/dL Albumin 2.7 L (3.8-4.9) g/dL 09/12/21 Range/Units 06:50 RBC (4.40-5.60) X 10*6/uL Hgb (13.0-17.0) g/dL Hct (39.6-50.0) % Plt Count (140-440) X 10*3/uL Plt Count Comment Monocytes # (0.20-1.00) X 10*3/uL Sodium (137-145) mmol/L Anion Gap (10.00-18.00) mmol/L Glucose (70-110) mg/dL POC Glucose (mg/dL) 205 H (75-99) mg/dL Calcium (8.7-10.3) mg/dL AST (14-35) U/L ALT (10-49) U/L Creatine Kinase (35-257) U/L Total Protein (6.2-8.2) g/dL Albumin (3.8-4.9) g/dL
[2021-09-12 08:40] LABS: Basophils # (A) 0.05 X 10*3/uL (0.00-0.10); Basophils % (A) 0.6 %; Eosinophils # (A) 0.25 X 10*3/uL (0.04-0.35); HCT 31.9 % (39.6-50.0); HGB 10.3 g/dL (13.0-17.0); Immature Grans, Automated 0.2 %; Lymphocytes # (A) 1.14 X 10*3/uL (0.90-5.00); Lymphocytes % (A) 13.8 %; MCH 29.9 pg (27.0-32.0); MCHC 32.3 g/dL (32.0-37.0); MCV 92.7 fL (80.0-97.0); Monocytes # (A) 0.93 X 10*3/uL (0.20-1.00); Monocytes % (A) 11.2 %; NRBC Per 100 WBC 0 /100 WBCS (0.0-0.0); Neutrophils # (A) 5.89 X 10*3/uL (1.80-7.70); Neutrophils % (A) 71.2 %; Platelet Count 131 X 10*3/uL (140-440); RBC 3.44 X 10*6/uL (4.40-5.60); RDW 13.1 % (11.5-14.5); WBC 8.28 X 10*3/uL (4.50-10.00)
[2021-09-12] MEDS: IPRATROPIUM-ALBUTEROL 3 ML NEB INHALATION SCH ×4 (09:33→20:05)
[2021-09-12] MEDS: SODIUM CHLORIDE 0.9% 1,000 ML IV SCH ×3 (09:37→11:35)
[2021-09-12] MEDS: MORPHINE SULFATE 4 MG/ML SYRINGE IV PRN ×3 (09:40→20:33)
[2021-09-12] MEDS: MONTELUKAST 10 MG TAB PO SCH (10:03)
[2021-09-12] MEDS: LIDOCAINE 5% PATCH TOPICAL SCH (10:03)
[2021-09-12] MEDS: TAMSULOSIN 0.4 MG CAP.ER.24H PO SCH (10:03)
[2021-09-12] MEDS: DOCUSATE 100 MG CAP PO SCH ×2 (10:03→20:33)
[2021-09-12] MEDS: PSYLLIUM HUSK 100% 6 GM PACKET PO SCH ×2 (10:03→20:33)
[2021-09-12] MEDS: FAMOTIDINE 20 MG TAB PO SCH ×2 (10:03→20:33)
[2021-09-12 11:55] LABS: Glucose,Whole Blood 128 mg/dL (75-99)
--- NOTE | 2021-09-12 12:30 | P.PN ---
Subjective Progress Note Date: 09/12/21 CHIEF COMPLAINT: Fall from ladder with multiple trauma injuries HISTORY OF PRESENT ILLNESS: Patient on regular medical floor. He is sitting at bedside chair. He reports that his pain is controlled. Still requiring IV pain medication. He is currently requiring oxygen which is new for him. He is on 4 L satting 98%. Patient denies any new pain. He is having flatus. Afebrile. WBC 8.28 Hgb 10.3 platelets 131 sodium 133 creatinine 0.85 creatinine kinase is down from 723-379. LFTs are trending downwards. Patient seen by inpatient rehab physician. Patient's works at [employer] and they would prefer a transfer to a sitting but there if possible. Urine has been clear. PHYSICAL EXAM: VITAL SIGNS: Reviewed GENERAL: Well-developed in no acute distress. HEENT: No sclera icterus. Extraocular movements grossly intact. Moist buccal mucosa. Head is atraumatic, normocephalic. Hears conversational speech. No nasal drainage. NECK: Supple without lymphadenopathy. CHEST: Non-labored respirations and equal bilateral excursions. CARDIOVASCULAR: Palpable 2+ radial pulses. ABDOMEN: Soft. Nondistended. Nontender. MUSCULOSKELETAL: No clubbing or cyanosis. NEUROLOGIC: No focal or lateralizing signs. Cranial nerves II through XII grossly intact. PSYCH: Appropriate affect. Alert and oriented to person, place and time. SKIN: Well perfused. Good skin turgor. ASSESSMENT: 1. Fall from ladder with multiple trauma injuries 2. Flail chest on the right with rib fractures 3 through 10 except #9 3. Right small hemothorax 4. Right small pneumothorax 5. Pulmonary contusion 6. Liver hematoma 7. Kidney laceration with subcapsular hematoma 8. Adrenal hematoma versus adrenal adenoma 9. Acute rhabdomyolysis due to patient's injuries improving 10. Loss of consciousness 11. History of diabetes mellitus with elevated glucose 12. History of hypertension 13. Elevated LFTs due to liver injury 14. Urinary retention 15. Lactic acidosis due to the rhabdomyolysis PLAN -Discontinue Capone catheter -Decreased IV fluids to 75 mL per hour. -Check chest x-ray due to patient requiring oxygen -Continue supportive care -manager of quality and social media community manager to work on placement -Patient followed closely by pulmonary service, cardiothoracic team, urology and medicine service -Continue stool softeners -Continue to monitor oxygen saturation -Continue pain management -Encouraged patient to use incentive spirometer -Repeat CK level, CBC and CMP in a.m. -Prophylaxis Protonix and DVT prophylaxis SCDs Physician Spice Miller note has been reviewed by physician. Signing provider agrees with the documented findings, assessment, and plan of care. Objective - Vital Signs Vital signs: Vital Signs Temp 97.6 F 09/12/21 07:37 Pulse 75 09/12/21 09:44 Resp 16 09/12/21 07:37 BP 141/86 09/12/21 07:37 Pulse Ox 98 09/12/21 09:35 Intake & Output 09/11/21 09/12/21 09/12/21 18:59 06:59 18:59 Intake Total 2200 Output Total 2500 2600 Balance -2500 -400 Weight 105.6 kg Intake: Intake, IV Titration 1200 Amount Sodium Chloride 0.9% 1, 1200 000 ml @ 100 mls/hr IV . Q10H [facility] Rx#:[id number] Oral 1000 Output: Urine 2500 2600 Other: Voiding Method Indwelling Catheter Indwelling Catheter Indwelling Catheter # Voids 2 1 # Bowel Movements 1 0 - Labs CBC & Chem 7: 09/12/21 05:45 09/12/21 05:45 Labs: Abnormal Lab Results - Last 24 Hours (Table) 09/11/21 09/11/21 09/12/21 Range/Units 15:37 21:26 05:45 RBC (4.40-5.60) X 10*6/uL Hgb (13.0-17.0) g/dL Hct (39.6-50.0) % Plt Count (140-440) X 10*3/uL Sodium 133 L (137-145) mmol/L Glucose 209 H (74-99) mg/dL POC Glucose (mg/dL) 233 H 187 H (75-99) mg/dL Calcium 8.0 L (8.4-10.2) mg/dL ALT 106 H (4-49) U/L Creatine Kinase 379 H (55-170) U/L Total Protein 5.2 L (6.3-8.2) g/dL Albumin 2.7 L (3.5-5.0) g/dL 09/12/21 09/12/21 09/12/21 Range/Units 05:45 06:50 11:54 RBC 3.44 L (4.40-5.60) X 10*6/uL Hgb 10.3 L (13.0-17.0) g/dL Hct 31.9 L (39.6-50.0) % Plt Count 131 L (140-440) X 10*3/uL Sodium (137-145) mmol/L Glucose (74-99) mg/dL POC Glucose (mg/dL) 205 H 128 H (75-99) mg/dL Calcium (8.4-10.2) mg/dL ALT (4-49) U/L Creatine Kinase (55-170) U/L Total Protein (6.3-8.2) g/dL Albumin (3.5-5.0) g/dL
--- NOTE | 2021-09-12 12:30 | XR ---
EXAMINATION TYPE: XR chest 2V DATE OF EXAM: 09/12/2021 COMPARISON: 09/11/2021 INDICATION: Pleural effusion, shortness of breath TECHNIQUE: Frontal and lateral views of the chest are obtained. FINDINGS: The heart size is normal. The pulmonary vasculature is normal. There is a moderate right pleural fluid which may be mildly increased over the interval. Pneumothorax could be considered. Multiple right-sided rib fractures are evident second third fourth fifth and sixth ribs are fractured on the right. These may have lateral rib fractures as well. Correlate for flail chest. No pneumothor ax is evident.. IMPRESSION: 1. Known right-sided flail chest. 2. Moderate amount of fluid on the right may have mild increased volume.
--- NOTE | 2021-09-12 13:09 | P.PN ---
Subjective Progress Note Date: 09/12/21 65-year-old male, who was evaluated in the emergency room yesterday, September 08. He seen today in room 264. The patient sees Dr. Sarabia and jaylen as a primary. He apparently fell from a ladder. He was trying to get a recluse out of his garage. He fell backwards and landed on his head. He apparently lost consciousness for about 40 minutes. He apparently was discovered by his grandson, call for help. When he was picked up by EMS, he apparently was having some amnesia, and repetitive questioning. He also complained of some pain in his right upper chest and back area, with radiation to the right shoulder area. The patient was not on any blood thinners. The patient has a history of hypertension, diabetes, and BPH. When I spoke to the ER physician, he told me that the patient was discovered to have multiple rib fractures on the right lateral chest on the right, fractured ribs 3 through 10 on the right, a small pneumothorax and hemothorax on the right, and a pulmonary contusion. In addit ion there was a liver hematoma, kidney laceration, and adrenal hematoma. White count 14.6, hemoglobin 13.4, hematocrit 41.8, and platelet count. 228,000. Sodium 132, potassium 5.9, chlorides 99, CO2 20, BUN 20, and creatinine 1.17. The patient's lactic acid initially was 5.4. Repeat was 3.3. AST was 379, and ALT was 496. CT of the head and cervical spine, was essentially unremarkable. CT of the chest abdomen pelvis revealed a flail chest on the right, with fractures of ribs 3 through 10, except rib 9, underlying small hemothorax and 5% pneumothorax, pulmonary contusion, grade 3 liver hematoma, adrenal hematoma, grade 3 right renal injury with upper pole contusion, among other things. Progress note dated 09/10/2021. 65-year-old male, again seen in room 264. Other than pain, the patient is doing relatively well. He remains on saline at 200 mL an hour, and O2 at 2 L. I've asked him to use incentive spirometer every hour while awake. Clinically, the patient stable for transfer out of the intensive care unit. Laboratory data includes a white count 11.6, hemoglobin 12.2, hematocrit 38.1, and platelet count 161,000. Sodium 133, potassium 4.5, chlorides 102, CO2 27, anion gap 4, BUN 15, and creatinine 1.02. His total CK was 1283. AST 112, ALT 274. Albumin 3.4. The patient's chest x-ray show some bibasilar infiltrates and/or atelectasis, right greater than left. The patient is seen today 09/11/2021 in follow-up on the regular medical floor. He is currently sitting up in a chair at the bedside. Awake and alert in no acute distress. His pain is well controlled. He's down to 2 L nasal cannula maintaining good O2 saturations in the 90s. Chest x-ray does continue to show right lower lobe collapse. He is encouraged regarding the increased use the incentive spirometer and cough and deep breathing exercises. Urine culture reveals no growth. White count 9.7. Hemoglobin 10.7. Platelet count 136. Sodium 135. Potassium 4.2. Bicarb 24. BUN 13. Creatinine 0.9. AST 50. ALT 170. He is continued on Singulair, DuoNeb inhalations. Currently on diuretics 20 mg IV every 12 hours. He is currently in a negative 4 liter balance. Remains on normal saline at 200 ML's per hour per trauma services. The patient is seen today 09/12/2021 in follow-up on the regular medical floor. He is awake and alert in no acute distress. Sitting up in a chair at the [facility]. Denies any worsening shortness of breath, cough or congestion. He is maintaining good O2 saturations in the 90s on 4 L/m per nasal cannula. Normal saline at 100 ML's per hour. Follow-up chest x-ray continues to show a known right-sided flail chest. Moderate amount of fluid in the right may have mild increase. Noted fractures of second third fourth fifth and sixth ribs on the right. He continues to work well with the incentive spirometer. Capone catheter remains in place with clear urine. Urine culture revealed no growth. White count 8.2. Hemoglobin 10.3. Platelets 131. Sodium 133. Potassium 3.9. BUN 14. Creatinine 0.85. Glucose 209. CK level 379. AST 37. ALT 106. Objective - Vital Signs Vital signs: Vital Signs Temp 97.6 F 09/12/21 07:37 Pulse 75 09/12/21 09:44 Resp 16 09/12/21 07:37 BP 141/86 09/12/21 07:37 Pulse Ox 98 09/12/21 09:35 Intake & Output 09/11/21 09/12/21 09/12/21 18:59 06:59 18:59 Intake Total 2200 Output Total 2500 2600 Balance -2500 -400 Weight 105.6 kg Intake: Intake, IV Titration 1200 Amount Sodium Chloride 0.9% 1, 1200 000 ml @ 100 mls/hr IV . Q10H [facility] Rx#:[id number] Oral 1000 Output: Urine 2500 2600 Other: Voiding Method Indwelling Catheter Indwelling Catheter Indwelling Catheter # Voids 2 1 # Bowel Movements 1 0 - Exam GENERAL EXAM: Alert, very pleasant 65-year-old gentleman, up in a chair at the bedside, on 4 L nasal cannula, comfortable in no apparent distress. HEAD: Normocephalic. EYES: Normal reaction of pupils, equal size. NOSE: Clear with pink turbinates. THROAT: No erythema or exudates. NECK: No masses, no JVD. CHEST: No chest wall deformity. LUNGS: Equal air entry with crackles in the right lung base. CVS: S1 and S2 normal with no audible murmur, regular rhythm. ABDOMEN: No hepatosplenomegaly, normal bowel sounds, no guarding or rigidity. SPINE: No scoliosis or deformity SKIN: No rashes CENTRAL NERVOUS SYSTEM: No focal deficits, tone is normal in all 4 extremities. EXTREMITIES: There is no peripheral edema. No clubbing, no cyanosis. Peripheral pulses are intact. - Labs CBC & Chem 7: 09/12/21 05:45 09/12/21 05:45 Labs: Abnormal Lab Results - Last 24 Hours (Table) 09/11/21 09/11/21 09/12/21 Range/Units 15:37 21:26 05:45 RBC (4.40-5.60) X 10*6/uL Hgb (13.0-17.0) g/dL Hct (39.6-50.0) % Plt Count (140-440) X 10*3/uL Sodium 133 L (137-145) mmol/L Glucose 209 H (74-99) mg/dL POC Glucose (mg/dL) 233 H 187 H (75-99) mg/dL Calcium 8.0 L (8.4-10.2) mg/dL ALT 106 H (4-49) U/L Creatine Kinase 379 H (55-170) U/L Total Protein 5.2 L (6.3-8.2) g/dL Albumin 2.7 L (3.5-5.0) g/dL 09/12/21 09/12/21 09/12/21 Range/Units 05:45 06:50 11:54 RBC 3.44 L (4.40-5.60) X 10*6/uL Hgb 10.3 L (13.0-17.0) g/dL Hct 31.9 L (39.6-50.0) % Plt Count 131 L (140-440) X 10*3/uL Sodium (137-145) mmol/L Glucose (74-99) mg/dL POC Glucose (mg/dL) 205 H 128 H (75-99) mg/dL Calcium (8.4-10.2) mg/dL ALT (4-49) U/L Creatine Kinase (55-170) U/L Total Protein (6.3-8.2) g/dL Albumin (3.5-5.0) g/dL Assessment and Plan Assessment: 1 Acute hypoxemic respiratory failure secondary to status post fall from a ladder, with multiple injuries including flail chest on the right, fractures of ribs 3 through 10 except #9, on the right, small hemothorax, pulmonary contusion, small pneumothorax, liver hematoma, kidney laceration, and adrenal hematoma. 2 Apparent lost of consciousness from fall, for 40 minutes. 3 History of BPH. 4 History of hypertension. 5 History of diabetes mellitus. Plan: The patient was seen and evaluated Chest x-ray and labs reviewed We'll obtain an ultrasound of the right chest Increase the use of the incentive spirometer Increase his activity as tolerated Titrate down the FiO2 as tolerated We'll continue to follow I have personally seen and examined the patient, performed the documentation and the assessment and plan as written. Number of minutes spent on the visit: 10.
--- NOTE | 2021-09-12 14:47 | US ---
EXAMINATION TYPE: US chest DATE OF EXAM: 09/12/2021 COMPARISON: NONE CLINICAL HISTORY: Right pleural effusion post trauma. Right pleural effusion TECHNIQUE: Targeted ultrasound of the posterior lower EXAM MEASUREMENTS: Right Pleural Effusion pocket size: 4.3 cm Right skin surface to fluid distance: 3.7 cm Right side marked for possible thoracentesis outside the dept. Pulmonologists are able to review the images in the patient?s EMR. IMPRESSIONS: 1. Right pleural effusion
[2021-09-12 16:42] LABS: Glucose,Whole Blood 160 mg/dL (75-99)
[2021-09-12 20:28] LABS: Glucose,Whole Blood 133 mg/dL (75-99)
[2021-09-12] MEDS: lisinopriL 10 MG TAB PO SCH (20:33)
--- NOTE | 2021-09-12 21:44 | P.PN ---
Progress Note - Text Progress Note Date: 09/12/21 - Chief Complaint Fall Hospital course: This is a very pleasant 65-year-old patient who follows with Dr. Riley. Chronic stable medical conditions include diabetes, hypertension, BPH and history of kidney stones. 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 Patient was up on a ladder trying to get total for her: And he fell. As a result patient had multiple injuries. Patient developed a flail chest on the right side of the rib fractures 3 through 10, small hemothorax and pneumothorax, pulmonary contusion, liver hematoma could not kidney laceration with subcapsular hematoma, anginal hematoma possibly, patient is currently in the ICU. Decreased appetite. Significant pain. Awake. Had urinary retention and had to have a catheter. at the bedside. Denies any bleeding from the nose. Fell about 10 feet backwards. Landed on his back and possibly hit his head. Was possibly unconscious for about 15 minutes. Admitted with acute rhabdomyolysis, active of Capone catheter placed because of bladder outflow obstruction, right-sided pulmonary contusion, right-sided flail chest, multiple right-sided rib fractures, elevated liver enzymes, liver injury. September 10: Moved to the medical floor. Having pain on the right chest wall. Eating little. Has a Capone catheter. Right-sided pulmonary hemorrhage/atelectasis on x-ray. Has not passed any flatus. September 11: Eating better. Using incentive spirometry. Capone catheter with clear urine. Pain at fracture site persist. Has passed flatus. Up in a recliner. Rhabdomyolysis improving. Right-sided atelectasis/hemothorax persists September 12: Eating okay. Capone catheter. Clear urine. Pain present. No BM this morning. Bulk forming laxative added. Using incentive spirometry. Active Medications Acetaminophen (Acetaminophen Tab 325 Mg Tab) 650 mg PO Q4HR PRN PRN Reason: Fever and/or Mild Pain Hydrocodone Bitart/Acetaminophen (Hydrocodone/Apap 5-325mg 1 Each Tab) 1 each PO Q4HR PRN PRN Reason: Moderate Pain Last Admin: 09/12/21 04:51 Dose: 1 each Documented by: Albuterol/Ipratropium (Ipratropium-Albuterol 3 Ml Neb) 3 ml INHALATION RT-QID [facility] Last Admin: 09/12/21 20:05 Dose: 3 ml Documented by: Docusate Sodium (Docusate 100 Mg Cap) 100 mg PO BID [facility] Last Admin: 09/12/21 20:33 Dose: 100 mg Documented by: Famotidine (Famotidine 20 Mg Tab) 20 mg PO BID [facility] Last Admin: 09/12/21 20:33 Dose: 20 mg Documented by: Glipizide (Glipizide 5 Mg Tab) 5 mg PO AC-BID [facility] Last Admin: 09/12/21 17:09 Dose: 5 mg Documented by: Sodium Chloride (Saline 0.9%) 1,000 mls @ 75 mls/hr IV .[id number] [facility] Last Admin: 09/12/21 11:35 Dose: 75 mls/hr Documented by: Insulin Aspart (Insulin Aspart (Novolog) 100 Unit/Ml Vial) 0 unit SQ AC-TID [facility]; Protocol Last Admin: 09/12/21 17:09 Dose: 2 unit Documented by: Lidocaine (Lidocaine 5% Patch) 1 patch TOPICAL DAILY [facility]; Protocol Last Admin: 09/12/21 10:03 Dose: 1 patch Documented by: Lisinopril (Lisinopril 10 Mg Tab) 10 mg PO HS [facility] Last Admin: 09/12/21 20:33 Dose: 10 mg Documented by: Metformin HCl (Metformin 500 Mg Tab) 1,000 mg PO BID-W/MEALS [facility] Last Admin: 09/12/21 17:09 Dose: 1,000 mg Documented by: Montelukast Sodium (Montelukast 10 Mg Tab) 10 mg PO DAILY [facility] Last Admin: 09/12/21 10:03 Dose: 10 mg Documented by: Morphine Sulfate (Morphine Sulfate 4 Mg/Ml Syringe) 4 mg IV Q2HR PRN PRN Reason: Pain Scale 8 to 10 Last Admin: 09/12/21 20:33 Dose: 4 mg Documented by: Naloxone HCl (Naloxone 0.4 Mg/Ml 1 Ml Vial) 0.2 mg IV Q2M PRN PRN Reason: Opioid Reversal Ondansetron HCl (Ondansetron 4 Mg/2 Ml Vial) 4 mg IVP Q6HR PRN PRN Reason: Nausea And Vomiting Last Admin: 09/09/21 00:26 Dose: 4 mg Documented by: Psyllium Hydrophilic Mucilloid (Psyllium Husk 100% 6 Gm Packet) 6 gm PO BID [facility] Last Admin: 09/12/21 20:33 Dose: 6 gm Documented by: Tamsulosin HCl (Tamsulosin 0.4 Mg Cap.Er.24h) 0.4 mg PO DAILY [facility] Last Admin: 09/12/21 10:03 Dose: 0.4 mg Documented by: Past medical history to include: Diabetes, hypertension, BPH, kidney stone with a double-J stent on the left side previously, 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 Alcohol rarely. Does smoke in the past. Works at the [place] at [place] Family history: CAD Physical examination: VITAL SIGNS: 98.2, 91, 18, 1:30/82, 95% 4 L GENERAL: Reclining in chair, awake EYES: Pupils equal. Conjunctiva normal. HEENT: External appearance of nose and ears normal, oral cavity grossly normal. NECK: JVD not raised; masses not palpable. HEART: First and second heart sounds are normal; no edema. LUNGS: Respiratory rate increased; decreased breath sounds. ABDOMEN: Soft, nontender, liver spleen not palpable, no masses palpable. Capone catheter -clear urine PSYCH: Alert and oriented x3; mood and affect normal. MUSCULOSKELETAL:No Clubbing/cyanosis;muscles-grossly intact. Right chest wall tenderness INVESTIGATIONS, reviewed in the clinical context: September 12: White count 8.2 hemoglobin 10.3 platelets 131 potassium 3.9 creatinine 0.85 AST 37 ALT 106 albumin 2.7 September 11: White count 9.7 hemoglobin 10.7 platelets 136 potassium 4.2 creatinine 0.9 total bilirubin 0.6 AST 50 ALT 170 CPK 723 September 10: White count 11.6 hemoglobin 12.2 platelets 161 sodium 133 potassium 4.5 AST 112 ALT 274 CPK 1283 albumin 3.4 September 09: Creatinine kinase 1582. Glucose 222 hemoglobin 13.4 potassium 5.9 and repeat 4.4 White count 12 hemoglobin 15.1 platelets 209 potassium 4.3 creatinine 1.08 Lactic acid 4.1 AST 6 63 ALT 668 UA positive for blood RBC Chest x-ray film personally reviewed by me-right diaphragm elevated. Right rib fractures [address] thoracic or lumbar spine without contrast: Multiple right rib fractures at multiple locations suggestive of flail chest associated with a right pleural effusion slight hemothorax small right-sided pneumothorax CT chest abdomen pelvis: Ill-defined soft tissue nodule right internal gland 3.3 cm. Some tracking blood. Nonobstructive right renal calculi of to 4 mm. 1.7 parenchymal hematoma and laceration along the right lower pole right kidney. Some Slight hematoma. Left-sided colonic diverticulosis. Prostate gland enlarged. Some DJD changes. EKG tracing personally reviewed by me-normal sinus rhythm. Rate 73 2-D echocardiogram: EF 55%. No pericardial effusion. Computed tomography scan brain and C-spine without contrast: Unremarkable Assessment and plan: -Acute rhabdomyolysis secondary to fall: Improving Continue IV fluids. Follow CPK. -Left-sided sigmoid diverticulosis: Asymptomatic -Right-sided kidney stones, asymptomatic -BPH with bladder outflow obstruction Continue Capone catheter. -Lactic acidosis, type II. No sepsis IV fluids -Right-sided pulmonary contusion/atelectasis, small pneumothorax Incentive spirometry -Right-sided flail chest Cardiothoracic surgery follow. Incentive spirometry -Right-sided multiple rib fractures, liver hematoma, right perinephritic bleeding Follow with surgery -Elevated liver enzymes, liver injury: Improving Follow LFTs -Diabetes mellitus type 2, uncontrolled with hyperglycemia Glipizide 5 mg twice a day. Diabetic diet. Follow Accu-Cheks. Glucophage -Essential hypertension Lisinopril 10 mg daily at bedtime Pain control. Incentive spirometry. Follow LFTs. IV fluids. . Follow CPK. Discussed with patient. Thank you Dr. Brush
[2021-09-13] MEDS: HYDROcodone/APAP 5-325MG 1 EACH TAB PO PRN ×3 (00:38→16:49)
[2021-09-13 07:00] LABS: Glucose,Whole Blood 174 mg/dL (75-99)
[2021-09-13] MEDS: IPRATROPIUM-ALBUTEROL 3 ML NEB INHALATION SCH ×4 (07:55→20:58)
[2021-09-13] MEDS: INSULIN ASPART (NovoLOG) 100 UNIT/ML VIAL SQ SCH ×3 (07:56→16:47)
[2021-09-13] MEDS: glipiZIDE 5 MG TAB PO SCH ×2 (07:56→16:47)
[2021-09-13] MEDS: TAMSULOSIN 0.4 MG CAP.ER.24H PO SCH (07:56)
[2021-09-13] MEDS: MONTELUKAST 10 MG TAB PO SCH (07:56)
[2021-09-13] MEDS: PSYLLIUM HUSK 100% 6 GM PACKET PO SCH ×2 (07:56→20:23)
[2021-09-13] MEDS: DOCUSATE 100 MG CAP PO SCH ×2 (07:56→20:24)
[2021-09-13] MEDS: metFORMIN 500 MG TAB PO SCH ×2 (07:56→16:47)
[2021-09-13] MEDS: FAMOTIDINE 20 MG TAB PO SCH ×2 (07:56→20:24)
[2021-09-13] MEDS: MORPHINE SULFATE 4 MG/ML SYRINGE IV PRN ×3 (07:57→23:28)
[2021-09-13] MEDS: LIDOCAINE 5% PATCH TOPICAL SCH (07:58)
--- NOTE | 2021-09-13 09:44 | XR ---
EXAMINATION TYPE: XR chest 2V DATE OF EXAM: 09/13/2021 COMPARISON: Chest x-ray and chest ultrasound from yesterday and older studies HISTORY: Recent trauma injury with rib fractures TECHNIQUE: Frontal and lateral views of the chest are obtained. FINDINGS: Persistent right lower lung opacity. No pneumothorax identified bilaterally. Cardiac silho uette size stable and within normal limits. Postsurgical change to the lower cervical spine redemonst rated. Postsurgical change to the lumbar spine partially imaged. Displaced fracture posterior right f ourth rib redemonstrated. Additional rib fractures better seen on recent CT. IMPRESSION: Persistent small to moderate sized right pleural fluid collection probable hemothorax wit h associated right basilar opacity favoring compressive atelectasis. No significant change from one d ay earlier.
[2021-09-13 10:15] LABS: HCT 32.4 % (39.6-50.0); HGB 10.6 g/dL (13.0-17.0); MCH 30.5 pg (27.0-32.0); MCHC 32.7 g/dL (32.0-37.0); MCV 93.4 fL (80.0-97.0); Mean Platelet Volume 9.8 fL (9.5-12.2); NRBC Per 100 WBC 0 /100 WBCS (0.0-0.0); Platelet Count 157 X 10*3/uL (140-440); RBC 3.47 X 10*6/uL (4.40-5.60); RDW 13.1 % (11.5-14.5); WBC 6.77 X 10*3/uL (4.50-10.00)
[2021-09-13 10:30] LABS: African American GFR (CKD) 107.1 (60.0-200.0); Albumin 3.3 g/dL (3.8-4.9); Albumin/Globulin Ratio 1.74 (1.60-3.17); Anion Gap 9.9 mmol/L (10.00-18.00); BUN/Creat Ratio 16.38 Ratio (12.00-20.00); Blood Urea Nitrogen 13.1 mg/dL (9.0-27.0); Calcium 8.5 mg/dL (8.7-10.3); Carbon Dioxide 24.1 mmol/L (20.0-27.5); Globulin 1.9 g/dL (1.6-3.3); Non-African American GFR(CKD) 92.4 (60.0-200.0); Potassium 4.1 mmol/L (3.5-5.5); Total Bilirubin 0.5 mg/dL (0.30-1.20); Total Protein 5.2 g/dL (6.2-8.2)
[2021-09-13 11:28] LABS: Glucose,Whole Blood 149 mg/dL (75-99)
--- NOTE | 2021-09-13 11:28 | P.PN ---
Progress Note - Text Progress Note Date: 09/13/21 Patient remains stable. He states his right sided chest wall pain is stable. On exam vital signs are stable. Abdomen soft. Status post multiple right rib fractures with flail chest. Patient received supportive care.
[2021-09-13] MEDS ORDERED: LACTULOSE 20 GM/30 ML CUP PO ONE (12:23)
--- NOTE | 2021-09-13 14:30 | P.PN ---
Progress Note - Text Progress Note Date: 09/13/21 - Chief Complaint Fall Hospital course: This is a very pleasant 65-year-old patient who follows with Dr. Riley. Chronic stable medical conditions include diabetes, hypertension, BPH and history of kidney stones. 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 Patient was up on a ladder trying to get total for her: And he fell. As a result patient had multiple injuries. Patient developed a flail chest on the right side of the rib fractures 3 through 10, small hemothorax and pneumothorax, pulmonary contusion, liver hematoma could not kidney laceration with subcapsular hematoma, anginal hematoma possibly, patient is currently in the ICU. Decreased appetite. Significant pain. Awake. Had urinary retention and had to have a catheter. at the bedside. Denies any bleeding from the nose. Fell about 10 feet backwards. Landed on his back and possibly hit his head. Was possibly unconscious for about 15 minutes. Admitted with acute rhabdomyolysis, active of Capone catheter placed because of bladder outflow obstruction, right-sided pulmonary contusion, right-sided flail chest, multiple right-sided rib fractures, elevated liver enzymes, liver injury. September 10: Moved to the medical floor. Having pain on the right chest wall. Eating little. Has a Capone catheter. Right-sided pulmonary hemorrhage/atelectasis on x-ray. Has not passed any flatus. September 11: Eating better. Using incentive spirometry. Capone catheter with clear urine. Pain at fracture site persist. Has passed flatus. Up in a recliner. Rhabdomyolysis improving. Right-sided atelectasis/hemothorax persists September 12: Eating okay. Capone catheter. Clear urine. Pain present. No BM this morning. Bulk forming laxative added. Using incentive spirometry. September 13: Up in a recliner. Capone catheter. Clear urine. Flatus. Pain present. Did walk in the hallway. Active Medications Acetaminophen (Acetaminophen Tab 325 Mg Tab) 650 mg PO Q4HR PRN PRN Reason: Fever and/or Mild Pain Hydrocodone Bitart/Acetaminophen (Hydrocodone/Apap 5-325mg 1 Each Tab) 1 each PO Q4HR PRN PRN Reason: Moderate Pain Last Admin: 09/13/21 11:07 Dose: 1 each Documented by: Albuterol/Ipratropium (Ipratropium-Albuterol 3 Ml Neb) 3 ml INHALATION RT-QID [facility] Last Admin: 09/13/21 11:23 Dose: 3 ml Documented by: Docusate Sodium (Docusate 100 Mg Cap) 100 mg PO BID [facility] Last Admin: 09/13/21 07:56 Dose: 100 mg Documented by: Famotidine (Famotidine 20 Mg Tab) 20 mg PO BID [facility] Last Admin: 09/13/21 07:56 Dose: 20 mg Documented by: Glipizide (Glipizide 5 Mg Tab) 5 mg PO AC-BID [facility] Last Admin: 09/13/21 07:56 Dose: 5 mg Documented by: Sodium Chloride (Saline 0.9%) 1,000 mls @ 75 mls/hr IV .[id number] [facility] Last Admin: 09/12/21 11:35 Dose: 75 mls/hr Documented by: Insulin Aspart (Insulin Aspart (Novolog) 100 Unit/Ml Vial) 0 unit SQ AC-TID [facility]; Protocol Last Admin: 09/13/21 12:20 Dose: 2 unit Documented by: Lidocaine (Lidocaine 5% Patch) 1 patch TOPICAL DAILY [facility]; Protocol Last Admin: 09/13/21 07:58 Dose: 1 patch Documented by: Lisinopril (Lisinopril 10 Mg Tab) 10 mg PO HS [facility] Last Admin: 09/12/21 20:33 Dose: 10 mg Documented by: Metformin HCl (Metformin 500 Mg Tab) 1,000 mg PO BID-W/MEALS [facility] Last Admin: 09/13/21 07:56 Dose: 1,000 mg Documented by: Montelukast Sodium (Montelukast 10 Mg Tab) 10 mg PO DAILY [facility] Last Admin: 09/13/21 07:56 Dose: 10 mg Documented by: Morphine Sulfate (Morphine Sulfate 4 Mg/Ml Syringe) 4 mg IV Q2HR PRN PRN Reason: Pain Scale 8 to 10 Last Admin: 09/13/21 13:56 Dose: 4 mg Documented by: Naloxone HCl (Naloxone 0.4 Mg/Ml 1 Ml Vial) 0.2 mg IV Q2M PRN PRN Reason: Opioid Reversal Ondansetron HCl (Ondansetron 4 Mg/2 Ml Vial) 4 mg IVP Q6HR PRN PRN Reason: Nausea And Vomiting Last Admin: 09/09/21 00:26 Dose: 4 mg Documented by: Psyllium Hydrophilic Mucilloid (Psyllium Husk 100% 6 Gm Packet) 6 gm PO BID [facility] Last Admin: 09/13/21 07:56 Dose: 6 gm Documented by: Tamsulosin HCl (Tamsulosin 0.4 Mg Cap.Er.24h) 0.4 mg PO DAILY [facility] Last Admin: 09/13/21 07:56 Dose: 0.4 mg Documented by: Past medical history to include: Diabetes, hypertension, BPH, kidney stone with a double-J stent on the left side previously, 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 Alcohol rarely. Does smoke in the past. [place] the [place] at [place] Family history: CAD Physical examination: VITAL SIGNS: 98.1, 72, 135/86, 97% on 3 L GENERAL: Reclining in chair, awake EYES: Pupils equal. Conjunctiva normal. HEENT: External appearance of nose and ears normal, oral cavity grossly normal. NECK: JVD not raised; masses not palpable. HEART: First and second heart sounds are normal; no edema. LUNGS: Respiratory rate increased; decreased breath sounds. ABDOMEN: Soft, nontender, liver spleen not palpable, no masses palpable. Capone catheter -clear urine PSYCH: Alert and oriented x3; mood and affect normal. MUSCULOSKELETAL:No Clubbing/cyanosis;muscles-grossly intact. Right chest wall tenderness INVESTIGATIONS, reviewed in the clinical context: September 13: White count 6.70 globin 10.6 potassium 4.1 creatinine 0.8 AST 32 ALT 82 September 12: White count 8.2 hemoglobin 10.3 platelets 131 potassium 3.9 creatinine 0.85 AST 37 ALT 106 albumin 2.7 September 11: White count 9.7 hemoglobin 10.7 platelets 136 potassium 4.2 creatinine 0.9 total bilirubin 0.6 AST 50 ALT 170 CPK 723 September 10: White count 11.6 hemoglobin 12.2 platelets 161 sodium 133 potassium 4.5 AST 112 ALT 274 CPK 1283 albumin 3.4 September 09: Creatinine kinase 1582. Glucose 222 hemoglobin 13.4 potassium 5.9 and repeat 4.4 White count 12 hemoglobin 15.1 platelets 209 potassium 4.3 creatinine 1.08 Lactic acid 4.1 AST 6 63 ALT 668 UA positive for blood RBC Chest x-ray film personally reviewed by me-right diaphragm elevated. Right rib fractures [address] thoracic or lumbar spine without contrast: Multiple right rib fractures at multiple locations suggestive of flail chest associated with a right pleural ef fusion slight hemothorax small right-sided pneumothorax CT chest abdomen pelvis: Ill-defined soft tissue nodule right internal gland 3.3 cm. Some tracking blood. Nonobstructive right renal calculi of to 4 mm. 1.7 parenchymal hematoma and laceration along the right lower pole right kidney. Some Slight hematoma. Left-sided colonic diverticulosis. Prostate gland enlarged. Some DJD changes. EKG tracing personally reviewed by me-normal sinus rhythm. Rate 73 2-D echocardiogram: EF 55%. No pericardial effusion. Computed tomography scan brain and C-spine without contrast: Unremarkable Assessment and plan: -Acute rhabdomyolysis secondary to fall: Improving Continue IV fluids. Follow CPK. -Left-sided sigmoid diverticulosis: Asymptomatic -Right-sided kidney stones, asymptomatic -BPH with bladder outflow obstruction Continue Capone catheter. -Lactic acidosis, type II. No sepsis IV fluids -Right-sided pulmonary contusion/atelectasis, small pneumothorax Incentive spirometry -Right-sided flail chest Cardiothoracic surgery follow. Incentive spirometry -Right-sided multiple rib fractures, liver hematoma, right perinephritic bleeding Follow with surgery -Elevated liver enzymes, liver injury: Improving Follow LFTs -Diabetes mellitus type 2, uncontrolled with hyperglycemia Glipizide 5 mg twice a day. Diabetic diet. Follow Accu-Cheks. Glucophage -Essential hypertension Lisinopril 10 mg daily at bedtime -Albumin 3.3/hypoglycemia Acute phase reactant Pain control. Incentive spirometry. IV fluids. . Discussed with patient. Activity as tolerated Thank you Dr. Brush
--- NOTE | 2021-09-13 15:21 | P.PN ---
Subjective Progress Note Date: 09/13/21 65-year-old male, who was evaluated in the emergency room yesterday, September 08. He seen today in room 264. The patient sees Dr. Sarabia and jaylen as a primary. He apparently fell from a ladder. He was trying to get a recluse out of his garage. He fell backwards and landed on his head. He apparently lost consciousness for about 40 minutes. He apparently was discovered by his grandson, call for help. When he was picked up by EMS, he apparently was having some amnesia, and repetitive questioning. He also complained of some pain in his right upper chest and back area, with radiation to the right shoulder area. The patient was not on any blood thinners. The patient has a history of hypertension, diabetes, and BPH. When I spoke to the ER physician, he told me that the patient was discovered to have multiple rib fractures on the right lateral chest on the right, fractured ribs 3 through 10 on the right, a small pneumothorax and hemothorax on the right, and a pulmonary contusion. In addit ion there was a liver hematoma, kidney laceration, and adrenal hematoma. White count 14.6, hemoglobin 13.4, hematocrit 41.8, and platelet count. 228,000. Sodium 132, potassium 5.9, chlorides 99, CO2 20, BUN 20, and creatinine 1.17. The patient's lactic acid initially was 5.4. Repeat was 3.3. AST was 379, and ALT was 496. CT of the head and cervical spine, was essentially unremarkable. CT of the chest abdomen pelvis revealed a flail chest on the right, with fractures of ribs 3 through 10, except rib 9, underlying small hemothorax and 5% pneumothorax, pulmonary contusion, grade 3 liver hematoma, adrenal hematoma, grade 3 right renal injury with upper pole contusion, among other things. Progress note dated 09/10/2021. 65-year-old male, again seen in room 264. Other than pain, the patient is doing relatively well. He remains on saline at 200 mL an hour, and O2 at 2 L. I've asked him to use incentive spirometer every hour while awake. Clinically, the patient stable for transfer out of the intensive care unit. Laboratory data includes a white count 11.6, hemoglobin 12.2, hematocrit 38.1, and platelet count 161,000. Sodium 133, potassium 4.5, chlorides 102, CO2 27, anion gap 4, BUN 15, and creatinine 1.02. His total CK was 1283. AST 112, ALT 274. Albumin 3.4. The patient's chest x-ray show some bibasilar infiltrates and/or atelectasis, right greater than left. The patient is seen today 09/11/2021 in follow-up on the regular medical floor. He is currently sitting up in a chair at the bedside. Awake and alert in no acute distress. His pain is well controlled. He's down to 2 L nasal cannula maintaining good O2 saturations in the 90s. Chest x-ray does continue to show right lower lobe collapse. He is encouraged regarding the increased use the incentive spirometer and cough and deep breathing exercises. Urine culture reveals no growth. White count 9.7. Hemoglobin 10.7. Platelet count 136. Sodium 135. Potassium 4.2. Bicarb 24. BUN 13. Creatinine 0.9. AST 50. ALT 170. He is continued on Singulair, DuoNeb inhalations. Currently on diuretics 20 mg IV every 12 hours. He is currently in a negative 4 liter balance. Remains on normal saline at 200 ML's per hour per trauma services. The patient is seen today 09/12/2021 in follow-up on the regular medical floor. He is awake and alert in no acute distress. Sitting up in a chair at the [facility]. Denies any worsening shortness of breath, cough or congestion. He is maintaining good O2 saturations in the 90s on 4 L/m per nasal cannula. Normal saline at 100 ML's per hour. Follow-up chest x-ray continues to show a known right-sided flail chest. Moderate amount of fluid in the right may have mild increase. Noted fractures of second third fourth fifth and sixth ribs on the right. He continues to work well with the incentive spirometer. Capone catheter remains in place with clear urine. Urine culture revealed no growth. White count 8.2. Hemoglobin 10.3. Platelets 131. Sodium 133. Potassium 3.9. BUN 14. Creatinine 0.85. Glucose 209. CK level 379. AST 37. ALT 106. The patient is seen today 09/13/2021 in follow-up on the regular medical floor. He is currently sitting up in chair at the bedside. Awake and alert in no acute distress. Maintaining O2 saturations in the 90s on 2 L/m per nasal cannula. He has normal saline running at 75 ML's per hour. Ultrasound of the right chest revealed a small effusion at 4.3 cm. There is some noted increased atelectasis on his chest x-ray. He is again educated regarding the use the incentive spirometer and cough and deep breathing exercises. He's been up ambulating in the hallway with assistance. White count 6.7. Hemoglobin 10.6. Sodium 137. Potassium 4.1. Creatinine 0.8. Glucose 182. He remains on bronchodilators. Colace and Metamucil initiated due to constipation. Objective - Vital Signs Vital signs: Vital Signs Temp 98.1 F 09/13/21 07:46 Pulse 74 09/13/21 11:35 Resp 16 09/13/21 07:25 BP 135/86 09/13/21 07:46 Pulse Ox 96 09/13/21 07:58 Intake & Output 09/12/21 09/13/21 09/13/21 18:59 06:59 18:59 Output Total 1100 1000 250 Balance -1100 -1000 -250 Output: Urine 1100 1000 250 Other: Voiding Method Toilet Toilet Toilet Urinal Urinal - Exam GENERAL EXAM: Alert, very pleasant 65-year-old gentleman, up in a chair at the bedside, on 2 L nasal cannula, comfortable in no apparent distress. HEAD: Normocephalic. EYES: Normal reaction of pupils, equal size. NOSE: Clear with pink turbinates. THROAT: No erythema or exudates. NECK: No masses, no JVD. CHEST: No chest wall deformity. LUNGS: Equal air entry with crackles in the right lung base. CVS: S1 and S2 normal with no audible murmur, regular rhythm. ABDOMEN: No hepatosplenomegaly, normal bowel sounds, no guarding or rigidity. SPINE: No scoliosis or deformity SKIN: No rashes CENTRAL NERVOUS SYSTEM: No focal deficits, tone is normal in all 4 extremities. EXTREMITIES: There is no peripheral edema. No clubbing, no cyanosis. Peripheral pulses are intact. - Labs CBC & Chem 7: 09/13/21 05:10 09/13/21 05:10 Labs: Abnormal Lab Results - Last 24 Hours (Table) 0409/12/21 09/13/21 Range/Units 16:41 20:26 05:10 RBC 3.47 L (4.40-5.60) X 10*6/uL Hgb 10.6 L (13.0-17.0) g/dL Hct 32.4 L (39.6-50.0) % Anion Gap (10.00-18.00) mmol/L Glucose (70-110) mg/dL POC Glucose (mg/dL) 160 H 133 H (75-99) mg/dL Calcium (8.7-10.3) mg/dL ALT (10-49) U/L Total Protein (6.2-8.2) g/dL Albumin (3.8-4.9) g/dL 09/13/21 09/13/21 09/13/21 Range/Units 05:10 06:59 11:27 RBC (4.40-5.60) X 10*6/uL Hgb (13.0-17.0) g/dL Hct (39.6-50.0) % Anion Gap 9.90 L (10.00-18.00) mmol/L Glucose 182 H (70-110) mg/dL POC Glucose (mg/dL) 174 H 149 H (75-99) mg/dL Calcium 8.5 L (8.7-10.3) mg/dL ALT 82 H (10-49) U/L Total Protein 5.2 L (6.2-8.2) g/dL Albumin 3.3 L (3.8-4.9) g/dL Assessment and Plan Assessment: 1 Acute hypoxemic respiratory failure secondary to status post fall from a ladder, with multiple injuries including flail chest on the right, fractures of ribs 3 through 10 except #9, on the right, small hemothorax, pulmonary contusion , small pneumothorax, liver hematoma, kidney laceration, and adrenal hematoma. 2 Apparent lost of consciousness from fall, for 40 minutes. 3 History of BPH. 4 History of hypertension. 5 History of diabetes mellitus. Plan: The patient was seen and evaluated Chest x-ray and labs reviewed Ultrasound revealed a 4.3 cm packet, no thoracentesis planned Increase the use of the incentive spirometer Increase his activity as tolerated Titrate down the FiO2 as tolerated We'll continue to follow I have personally seen and examined the patient, performed the documentation and the assessment and plan as written. Number of minutes spent on the visit: 10.
[2021-09-13 16:37] LABS: Glucose,Whole Blood 181 mg/dL (75-99)
[2021-09-13] MEDS: lisinopriL 10 MG TAB PO SCH (20:24)
[2021-09-13 20:47] LABS: Glucose,Whole Blood 141 mg/dL (75-99)
[2021-09-13] MEDS: SODIUM CHLORIDE 0.9% 1,000 ML IV SCH (23:01)
[2021-09-14] MEDS: HYDROcodone/APAP 5-325MG 1 EACH TAB PO PRN ×4 (04:10→22:35)
[2021-09-14 06:45] LABS: Glucose,Whole Blood 154 mg/dL (75-99)
[2021-09-14] MEDS: IPRATROPIUM-ALBUTEROL 3 ML NEB INHALATION SCH ×4 (07:20→20:11)
[2021-09-14] MEDS: TAMSULOSIN 0.4 MG CAP.ER.24H PO SCH (08:24)
[2021-09-14] MEDS: DOCUSATE 100 MG CAP PO SCH ×2 (08:24→22:35)
[2021-09-14] MEDS: LIDOCAINE 5% PATCH TOPICAL SCH (08:24)
[2021-09-14] MEDS: FAMOTIDINE 20 MG TAB PO SCH ×2 (08:24→22:35)
[2021-09-14] MEDS: PSYLLIUM HUSK 100% 6 GM PACKET PO SCH ×2 (08:24→22:35)
[2021-09-14] MEDS: glipiZIDE 5 MG TAB PO SCH ×2 (08:26→17:32)
[2021-09-14] MEDS: metFORMIN 500 MG TAB PO SCH ×2 (08:26→17:32)
[2021-09-14] MEDS: MONTELUKAST 10 MG TAB PO SCH (08:27)
[2021-09-14] MEDS: SODIUM CHLORIDE 0.9% 1,000 ML IV SCH (08:30)
[2021-09-14] MEDS: INSULIN ASPART (NovoLOG) 100 UNIT/ML VIAL SQ SCH ×3 (08:48→17:32)
[2021-09-14 11:22] LABS: Glucose,Whole Blood 170 mg/dL (75-99)
--- NOTE | 2021-09-14 12:16 | P.PN ---
Progress Note - Text Progress Note Date: 09/14/21 Patient is resting in bed. He's has complaints of right-sided chest wall pain. He states his pain is a 67 out of 10. On exam vital signs appear stable. Patient is not short of breath. Her abdomen soft. Patient will continue receive supportive care for his right flail chest.
[2021-09-14] MEDS: MORPHINE SULFATE 4 MG/ML SYRINGE IV PRN ×2 (12:27→17:31)
[2021-09-14] MEDS ORDERED: bisacodyL 10 MG SUPP RECTAL STA (14:00)
--- NOTE | 2021-09-14 14:00 | P.PN ---
Subjective Progress Note Date: 09/14/21 Principal diagnosis: chest wall pain, trauma, multiple rib Fx 65-year-old male, who was evaluated in the emergency room yesterday, September 08. He seen today in room 264. The patient sees Dr. Sarabia and jaylen as a primary. He apparently fell from a ladder. He was trying to get a recluse out of his garage. He fell backwards and landed on his head. He apparently lost consciou sness for about 40 minutes. He apparently was discovered by his grandson, call for help. When he was picked up by EMS, he apparently was having some amnesia, and repetitive questioning. He also complained of some pain in his right upper chest and back area, with radiation to the right shoulder area. The patient was not on any blood thinners. The patient has a history of hypertension, diabetes, and BPH. When I spoke to the ER physician, he told me that the patient was discovered to have multiple rib fractures on the right lateral chest on the right, fractured ribs 3 through 10 on the right, a small pneumothorax and hemothorax on the right, and a pulmonary contusion. In addition there was a liver hematoma, kidney laceration, and adrenal hematoma. White count 14.6, hemoglobin 13.4, hematocrit 41.8, and platelet count. 228,000. Sodium 132, potassium 5.9, chlorides 99, CO2 20, BUN 20, and creatinine 1.17. The patient's lactic acid initially was 5.4. Repeat was 3.3. AST was 379, and ALT was 496. CT of the head and cervical spine, was essentially unremarkable. CT of the chest abdomen pelvis revealed a flail chest on the right, with fractures of ribs 3 through 10, except rib 9, underlying small hemothorax and 5% pneumothorax, pulmonary contusion, grade 3 liver hematoma, adrenal hematoma, grade 3 right renal injury with upper pole contusion, among other things. Progress note dated 09/10/2021. 65-year-old male, again seen in room 264. Other than pain, the patient is doing relatively well. He remains on saline at 200 mL an hour, and O2 at 2 L. I've asked him to use incentive spirometer every hour while awake. Clinically, the patient stable for transfer out of the intensive care unit. Laboratory data includes a white count 11.6, hemoglobin 12.2, hematocrit 38.1, and platelet count 161,000. Sodium 133, potassium 4.5, chlorides 102, CO2 27, anion gap 4, BUN 15, and creatinine 1.02. His total CK was 1283. AST 112, ALT 274. Albumin 3.4. The patient's chest x-ray show some bibasilar infiltrates and/or atelectasis, right greater than left. The patient is seen today 09/11/2021 in follow-up on the regular medical floor. He is currently sitting up in a chair at the bedside. Awake and alert in no acute distress. His pain is well controlled. He's down to 2 L nasal cannula maintaining good O2 saturations in the 90s. Chest x-ray does continue to show right lower lobe collapse. He is encouraged regarding the increased use the incentive spirometer and cough and deep breathing exercises. Urine culture reveals no growth. White count 9.7. Hemoglobin 10.7. Platelet count 136. Sodium 135. Potassium 4.2. Bicarb 24. BUN 13. Creatinine 0.9. AST 50. ALT 170. He is continued on Singulair, DuoNeb inhalations. Currently on diuretics 20 mg IV every 12 hours. He is currently in a negative 4 liter balance. Remains on normal saline at 200 ML's per hour per trauma services. The patient is seen today 09/12/2021 in follow-up on the regular medical floor. He is awake and alert in no acute distress. Sitting up in a chair at the bedside. Denies any worsening shortness of breath, cough or congestion. He is maintaining good O2 saturations in the 90s on 4 L/m per nasal cannula. Normal saline at 100 ML's per hour. Follow-up chest x-ray continues to show a known right-sided flail chest. Moderate amount of fluid in the right may have mild increase. Noted fractures of second third fourth fifth and sixth ribs on the right. He continues to work well with the incentive spirometer. Capone catheter remains in place with clear urine. Urine culture revealed no growth. White count 8.2. Hemoglobin 10.3. Platelets 131. Sodium 133. Potassium 3.9. BUN 14. Creatinine 0.85. Glucose 209. CK level 379. AST 37. ALT 106. The patient is seen today 09/13/2021 in follow-up on the regular medical floor. He is currently sitting up in chair at the bedside. Awake and alert in no acute distress. Maintaining O2 saturations in the 90s on 2 L/m per nasal cannula. He has normal saline running at 75 ML's per hour. Ultrasound of the right chest revealed a small effusion at 4.3 cm. There is some noted increased atelectasis on his chest x-ray. He is again educated regarding the use the incentive spirometer and cough and deep breathing exercises. He's been up ambulating in the hallway with assistance. White count 6.7. Hemoglobin 10.6. Sodium 137. Potassium 4.1. Creatinine 0.8. Glucose 182. He remains on bronchodilators. Colace and Metamucil initiated due to constipation. On 09/14/2021 patient seen in follow-up on medical surgical floor. He is awake and alert, in no acute distress, he is currently on 2 L of oxygen satting 94%, vital signs have been stable, blood pressure has been stable, patient has been working on incentive spirometer, he is achieving 1.5 L on the today. His lung sounds are diminished, no rhonchi or wheezing. His last chest x-ray from yesterday showed persistent small to moderate-sized right pleural effusion related to probable hemothorax with associated right basilar opacity favoring co mpressive atelectasis, no significant change compared one day earlier. Today's labs are still pending, yesterday's labs revealed a white blood cell, 6.7, hemoglobin of 10.6, platelet count of 157 electrolytes and renal profile were unremarkable. Patient has been getting up out of bed and ambulating, tolerating activity well, abdomen is soft, nontender. Objective - Vital Signs Vital signs: Vital Signs Temp 98.0 F 09/14/21 08:00 Pulse 84 09/14/21 11:38 Resp 17 09/14/21 08:00 BP 148/78 09/14/21 08:00 Pulse Ox 94 L 09/14/21 08:00 Intake & Output 09/13/21 09/14/21 09/14/21 18:59 06:59 18:59 Output Total 250 550 Balance -250 -550 Output: Urine 250 550 Other: Voiding Method Toilet Toilet Urinal Urinal # Voids 3 - Exam GENERAL EXAM: Alert, very pleasant 65-year-old white male, resting in bed on 2 L of oxygen pulse ox of 94% , comfortable in no apparent distress. HEAD: Normocephalic/atraumatic. EYES: Normal reaction of pupils, equal size. Conjunctiva pink, sclera white. NOSE: Clear with pink turbinates. THROAT: No erythema or exudates. NECK: No masses, no JVD, no thyroid enlargement, no adenopathy. CHEST: No chest wall deformity. Symmetrical expansion. chest wall is tender to palpation LUNGS: diminished breath sounds at the bases, no rhonchi, no crackles no wheezes CVS: Regular rate and rhythm, normal S1 and S2, no gallops, no murmurs, no rubs ABDOMEN: Soft, nontender. No hepatosplenomegaly, normal bowel sounds, no guarding or rigidity. EXTREMITIES: No clubbing, no edema, no cyanosis, 2+ pulses and upper and lower extremities. MUSCULOSKELETAL: Muscle strength and tone normal. SPINE: No scoliosis or deformity SKIN: No rashes CENTRAL NERVOUS SYSTEM: Alert and oriented -3. No focal deficits, tone is normal in all 4 extremities. PSYCHIATRIC: Alert and oriented -3. Appropriate affect. Intact judgment and insight. - Labs CBC & Chem 7: 09/13/21 05:10 09/13/21 05:10 Labs: Abnormal Lab Results - Last 24 Hours (Table) 09/13/21 09/13/21 09/14/21 Range/Units 16:36 20:30 06:43 POC Glucose (mg/dL) 181 H 141 H 154 H (75-99) mg/dL 09/14/21 Range/Units 11:21 POC Glucose (mg/dL) 170 H (75-99) mg/dL Assessment and Plan Plan: Assessment: #1. Acute hypoxic respiratory failure secondary to multiple injuries including flail chest on the right, fractures of the ribs 3 through 10, except for #9, small hemothorax, pulmonary contusion, small pneumothorax, liver hematoma, kidney laceration and adrenal hematoma secondary to a fall from a ladder #2. Loss of consciousness from the fall for 40 minutes, CT of the head and cervical spine showed no intracranial posttraumatic sequelae or acute calvarial bone fracture, no acute traumatic bony injury to the cervical spine #3. History of BPH #4. History of hypertension #5. History of diabetes mellitus Plan: Continue encouraging deep breathing and coughing Yesterday's chest x-ray has been reviewed No worsening dyspnea or hypoxia Follow-up blood work including CBC and BMP tomorrow Follow-up chest x-ray tomorrow Increase activity as tolerated Maintain pain control I have personally seen and examined the patient, performed the documentation and the assessment and plan as written. Number of minutes spent on the visit: [10] Time with Patient: Less than 30
--- NOTE | 2021-09-14 16:05 | P.PN ---
Progress Note - Text Progress Note Date: 09/14/21 - Chief Complaint Fall Hospital course: This is a very pleasant 65-year-old patient who follows with Dr. Riley. Chronic stable medical conditions include diabetes, hypertension, BPH and history of kidney stones. 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 Patient was up on a ladder trying to get total for her: And he fell. As a result patient had multiple injuries. Patient developed a flail chest on the right side of the rib fractures 3 through 10, small hemothorax and pneumothorax, pulmonary contusion, liver hematoma could not kidney laceration with subcapsular hematoma, anginal hematoma possibly, patient is currently in the ICU. Decreased appetite. Significant pain. Awake. Had urinary retention and had to have a catheter. at the bedside. Denies any bleeding from the nose. Fell about 10 feet backwards. Landed on his back and possibly hit his head. Was possibly unconscious for about 15 minutes. Admitted with acute rhabdomyolysis, active of Capone catheter placed because of bladder outflow obstruction, right-sided pulmonary contusion, right-sided flail chest, multiple right-sided rib fractures, elevated liver enzymes, liver injury. September 10: Moved to the medical floor. Having pain on the right chest wall. Eating little. Has a Capone catheter. Right-sided pulmonary hemorrhage/atelectasis on x-ray. Has not passed any flatus. September 11: Eating better. Using incentive spirometry. Capone catheter with clear urine. Pain at fracture site persist. Has passed flatus. Up in a recliner. Rhabdomyolysis improving. Right-sided atelectasis/hemothorax persists September 12: Eating okay. Capone catheter. Clear urine. Pain present. No BM this morning. Bulk forming laxative added. Using incentive spirometry. September 13: Up in a recliner. Capone catheter. Clear urine. Flatus. Pain present. Did walk in the hallway. September 14: Sitting up. Oral intake fair. Constipated. Dulcolax suppository ordered. Received lactulose 20 g yesterday. No BM. Making good urine. is present. Had a lengthy discussion with the patient and given update. Questions answered Active Medications Acetaminophen (Acetaminophen Tab 325 Mg Tab) 650 mg PO Q4HR PRN PRN Reason: Fever and/or Mild Pain Last Admin: 09/13/21 20:24 Dose: 650 mg Documented by: Hydrocodone Bitart/Acetaminophen (Hydrocodone/Apap 5-325mg 1 Each Tab) 1 each PO Q4HR PRN PRN Reason: Moderate Pain Last Admin: 09/14/21 15:39 Dose: 1 each Documented by: Albuterol/Ipratropium (Ipratropium-Albuterol 3 Ml Neb) 3 ml INHALATION RT-QID [facility] Last Admin: 09/14/21 11:26 Dose: 3 ml Documented by: Docusate Sodium (Docusate 100 Mg Cap) 100 mg PO BID [facility] Last Admin: 09/14/21 08:24 Dose: 100 mg Documented by: Famotidine (Famotidine 20 Mg Tab) 20 mg PO BID [facility] Last Admin: 09/14/21 08:24 Dose: 20 mg Documented by: Glipizide (Glipizide 5 Mg Tab) 5 mg PO AC-BID [facility] Last Admin: 09/14/21 08:26 Dose: 5 mg Documented by: Sodium Chloride (Saline 0.9%) 1,000 mls @ 75 mls/hr IV .[id number] [facility] Last Admin: 09/14/21 08:30 Dose: 75 mls/hr Documented by: Insulin Aspart (Insulin Aspart (Novolog) 100 Unit/Ml Vial) 0 unit SQ AC-TID [facility]; Protocol Last Admin: 09/14/21 12:28 Dose: 2 unit Documented by: Lidocaine (Lidocaine 5% Patch) 1 patch TOPICAL DAILY [facility]; Protocol Last Admin: 09/14/21 08:24 Dose: 1 patch Documented by: Lisinopril (Lisinopril 10 Mg Tab) 10 mg PO HS [facility] Last Admin: 09/13/21 20:24 Dose: 10 mg Documented by: Metformin HCl (Metformin 500 Mg Tab) 1,000 mg PO BID-W/MEALS [facility] Last Admin: 09/14/21 08:26 Dose: 1,000 mg Documented by: Montelukast Sodium (Montelukast 10 Mg Tab) 10 mg PO DAILY [facility] Last Admin: 09/14/21 08:27 Dose: 10 mg Documented by: Morphine Sulfate (Morphine Sulfate 4 Mg/Ml Syringe) 4 mg IV Q2HR PRN PRN Reason: Pain Scale 8 to 10 Last Admin: 09/14/21 12:27 Dose: 4 mg Documented by: Naloxone HCl (Naloxone 0.4 Mg/Ml 1 Ml Vial) 0.2 mg IV Q2M PRN PRN Reason: Opioid Reversal Ondansetron HCl (Ondansetron 4 Mg/2 Ml Vial) 4 mg IVP Q6HR PRN PRN Reason: Nausea And Vomiting Last Admin: 09/09/21 00:26 Dose: 4 mg Documented by: Psyllium Hydrophilic Mucilloid (Psyllium Husk 100% 6 Gm Packet) 6 gm PO BID [facility] Last Admin: 09/14/21 08:24 Dose: 6 gm Documented by: Tamsulosin HCl (Tamsulosin 0.4 Mg Cap.Er.24h) 0.4 mg PO DAILY [facility] Last Admin: 09/14/21 08:24 Dose: 0.4 mg Documented by: Past medical history to include: Diabetes, hypertension, BPH, kidney stone with a double-J stent on the left side previously, 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 Alcohol rarely. Does smoke in the past. Works at the [place] at [place] Family history: CAD Physical examination: VITAL SIGNS: Over 77, 18, 140/81, 92% on 2 L GENERAL: Sitting at the edge of the bed, awake, comfortable EYES: Pupils equal. Conjunctiva normal. HEENT: External appearance of nose and ears normal, oral cavity grossly normal. NECK: JVD not raised; masses not palpable. HEART: First and second heart sounds are normal; no edema. LUNGS: Respiratory rate increased; decreased breath sounds. ABDOMEN: Soft, nontender, liver spleen not palpable, no masses palpable. PSYCH: Alert and oriented x3; mood and affect normal. MUSCULOSKELETAL:No Clubbing/cyanosis;muscles-grossly intact. Right chest wall tenderness INVESTIGATIONS, reviewed in the clinical context: Chest ultrasound: Pleural effusion September 13: White count 6.70 globin 10.6 potassium 4.1 creatinine 0.8 AST 32 ALT 82 September 12: White count 8.2 hemoglobin 10.3 platelets 131 potassium 3.9 creatinine 0.85 AST 37 ALT 106 albumin 2.7 September 11: White count 9.7 hemoglobin 10.7 platelets 136 potassium 4.2 creatinine 0.9 total bilirubin 0.6 AST 50 ALT 170 CPK 723 September 10: White count 11.6 hemoglobin 12.2 platelets 161 sodium 133 potassium 4.5 AST 112 ALT 274 CPK 1283 albumin 3.4 September 09: Creatinine kinase 1582. Glucose 222 hemoglobin 13.4 potassium 5.9 and repeat 4.4 White count 12 hemoglobin 15.1 platelets 209 potassium 4.3 creatinine 1.08 Lactic acid 4.1 AST 6 63 ALT 668 UA positive for blood RBC Chest x-ray film personally reviewed by me-right diaphragm elevated. Right rib fractures [address] thoracic or lumbar spine without contrast: Multiple right rib fractures at multiple locations suggestive of flail chest associated with a right pleural effusion slight hemothorax small right-sided pneumothorax CT chest abdomen pelvis: Ill-defined soft tissue nodule right internal gland 3.3 cm. Some tracking blood. Nonobstructive right renal calculi of to 4 mm. 1.7 parenchymal hematoma and laceration along the right lower pole right kidney. Some Slight hematoma. Left-sided colonic diverticulosis. Prostate gland enlarged. Some DJD changes. EKG tracing personally reviewed by me-normal sinus rhythm. Rate 73 2-D echocardiogram: EF 55%. No pericardial effusion. Computed tomography scan brain and C-spine without contrast: . -Left-sided sigmoid diverticulosis: Asymptomatic -Right-sided kidney stones, asymptomatic -BPH with bladder outflow obstruction Continue Capone catheter. -Lactic acidosis, type II. No sepsis IV fluids -Right-sided pulmonary contusion/atelectasis, small pneumothorax Incentive spirometry -Right-sided flail chest Cardiothoracic surgery follow. Incentive spirometry -Right-sided multiple rib fractures, liver hematoma, right perinephritic bleeding Follow with surgery -Right hemothorax Follow with cardiothoracic surgery -Elevated liver enzymes, liver injury: Improving Follow LFTs -Diabetes mellitus type 2, uncontrolled with hyperglycemia Glipizide 5 mg twice a day. Diabetic diet. Follow Accu-Cheks. Glucophage -Essential hypertension Lisinopril 10 mg daily at bedtime -Albumin 3.3/hypoalbuminemia Acute phase reactant Care was discussed at length with the patient and at the bedside. Questions answered. Check LFTs tomorrow. Accu-Cheks noted. Cutback IV fluids. Dulcolax suppository Thank you Dr. Brush
[2021-09-14 16:07] LABS: Glucose,Whole Blood 136 mg/dL (75-99)
[2021-09-14] MEDS: lisinopriL 10 MG TAB PO SCH (22:35)
[2021-09-15] MEDS: MORPHINE SULFATE 4 MG/ML SYRINGE IV PRN (01:47)
[2021-09-15 07:21] LABS: Glucose,Whole Blood 138 mg/dL (75-99)
[2021-09-15] MEDS: IPRATROPIUM-ALBUTEROL 3 ML NEB INHALATION SCH ×4 (08:08→19:56)
[2021-09-15 08:44] LABS: Basophils # (A) 0.06 X 10*3/uL (0.00-0.10); Basophils % (A) 0.9 %; Eosinophils # (A) 0.34 X 10*3/uL (0.04-0.35); Eosinophils % (A) 4.9 %; HCT 32.2 % (39.6-50.0); HGB 10.6 g/dL (13.0-17.0); Immature Grans, Automated 0.4 %; Lymphocytes % (A) 24.5 %; MCH 30.8 pg (27.0-32.0); MCHC 32.9 g/dL (32.0-37.0); MCV 93.6 fL (80.0-97.0); Mean Platelet Volume 9.7 fL (9.5-12.2); Monocytes # (A) 0.81 X 10*3/uL (0.20-1.00); Monocytes % (A) 11.7 %; NRBC Per 100 WBC 0 /100 WBCS (0.0-0.0); Neutrophils % (A) 57.6 %; Platelet Count 193 X 10*3/uL (140-440); RBC 3.44 X 10*6/uL (4.40-5.60); RDW 12.9 % (11.5-14.5); WBC 6.94 X 10*3/uL (4.50-10.00)
[2021-09-15 09:15] LABS: African American GFR (CKD) 113.2 (60.0-200.0); Albumin 3.3 g/dL (3.8-4.9); Albumin/Globulin Ratio 1.83 (1.60-3.17); BUN/Creat Ratio 17.57 Ratio (12.00-20.00); Blood Urea Nitrogen 12.3 mg/dL (9.0-27.0); Calcium 8.6 mg/dL (8.7-10.3); Globulin 1.8 g/dL (1.6-3.3); Non-African American GFR(CKD) 97.7 (60.0-200.0); Total Bilirubin 0.4 mg/dL (0.30-1.20); Total Protein 5.1 g/dL (6.2-8.2)
--- NOTE | 2021-09-15 09:34 | XR ---
EXAMINATION TYPE: XR chest 1V portable DATE OF EXAM: 09/15/2021 Comparison: 09/13/2021 Clinical History: 65-year-old male hemothorax, trauma, flail chest Findings: ACDF hardware. Flail chest redemonstrated with multiple rib fractures throughout the right. Heart nor mal size. No appreciable pneumothorax. Continued moderate right pleural effusion. Note that this has increased compared to 09/10/2021 but similar to recent priors. Impression: Known flail chest on the right. Moderate right pleural effusion with adjacent atelectasis and/or cons olidation, similar from recent priors but increased compared to older exams such as 09/10/2021. No lana reciable pneumothorax.
[2021-09-15] MEDS: glipiZIDE 5 MG TAB PO SCH ×2 (09:36→16:56)
[2021-09-15] MEDS: TAMSULOSIN 0.4 MG CAP.ER.24H PO SCH (09:36)
[2021-09-15] MEDS: metFORMIN 500 MG TAB PO SCH ×2 (09:36→16:56)
[2021-09-15] MEDS: HYDROcodone/APAP 5-325MG 1 EACH TAB PO PRN ×3 (09:36→21:23)
[2021-09-15] MEDS: FAMOTIDINE 20 MG TAB PO SCH ×2 (09:36→20:01)
[2021-09-15] MEDS: INSULIN ASPART (NovoLOG) 100 UNIT/ML VIAL SQ SCH ×3 (09:36→16:37)
[2021-09-15] MEDS: MONTELUKAST 10 MG TAB PO SCH (09:36)
[2021-09-15] MEDS: DOCUSATE 100 MG CAP PO SCH ×2 (09:37→20:00)
[2021-09-15] MEDS: PSYLLIUM HUSK 100% 6 GM PACKET PO SCH ×2 (09:37→20:00)
[2021-09-15] MEDS: LIDOCAINE 5% PATCH TOPICAL SCH (09:37)
--- NOTE | 2021-09-15 11:17 | CT ---
EXAMINATION TYPE: CT chest wo con DATE OF EXAM: 09/15/2021 COMPARISON: CT chest September 08, 2021. Chest x-ray earlier today and older studies. HISTORY: RT hemothorax CT DLP: 681.2 mGycm. Automated Exposure Control for Dose Reduction was Utilized. TECHNIQUE: CT scan of the thorax is performed without IV contrast. FINDINGS: LUNGS: Moderate to large sized right pleural fluid collection layers dependently and has Hounsfield u nits less than 10. Associated right lung compressive atelectasis in the mid to lower lung. Some expan magan of the right lung with left-sided mediastinal shift. Left lung shows mild to moderate basilar at electasis and/or limited consolidation. No left-sided effusion. MEDIASTINAL: Lack of IV contrast is noted to limit evaluation for mediastinal and especially hilar ad enopathy. There are no definitive new greater than 1 cm mediastinal lymph nodes. No cardiomegaly or pericardial effusion is seen. OTHER: Liver remains heterogeneously hypodense. Cholecystectomy clips are redemonstrated. Partial vis ualization of surgical change in the lumbar spine. Displaced and nondisplaced fractures of the career development manager ior fourth through 10th ribs views redemonstrated. Nondisplaced and displaced fractures of the latera l right third through 10th ribs is redemonstrated. IMPRESSION: Moderate to large sized right pleural fluid collection is confirmed. Hounsfield units les s than 10 suggests more simple fluid. Findings consistent with flail chest redemonstrated.
[2021-09-15 11:55] LABS: Glucose,Whole Blood 162 mg/dL (75-99)
--- NOTE | 2021-09-15 15:09 | P.PN ---
Progress Note - Text Progress Note Date: 09/15/21 - Chief Complaint Fall Hospital course: This is a very pleasant 65-year-old patient who follows with Dr. Riley. Chronic stable medical conditions include diabetes, hypertension, BPH and history of kidney stones. 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 Patient was up on a ladder trying to get total for her: And he fell. As a result patient had multiple injuries. Patient developed a flail chest on the right side of the rib fractures 3 through 10, small hemothorax and pneumothorax, pulmonary contusion, liver hematoma could not kidney laceration with subcapsular hematoma, anginal hematoma possibly, patient is currently in the ICU. Decreased appetite. Significant pain. Awake. Had urinary retention and had to have a catheter. at the bedside. Denies any bleeding from the nose. Fell about 10 feet backwards. Landed on his back and possibly hit his head. Was possibly unconscious for about 15 minutes. Admitted with acute rhabdomyolysis, active of Capone catheter placed because of bladder outflow obstruction, right-sided pulmonary contusion, right-sided flail chest, multiple right-sided rib fractures, elevated liver enzymes, liver injury. September 10: Moved to the medical floor. Having pain on the right chest wall. Eating little. Has a Capone catheter. Right-sided pulmonary hemorrhage/atelectasis on x-ray. Has not passed any flatus. September 11: Eating better. Using incentive spirometry. Capone catheter with clear urine. Pain at fracture site persist. Has passed flatus. Up in a recliner. Rhabdomyolysis improving. Right-sided atelectasis/hemothorax persists September 12: Eating okay. Capone catheter. Clear urine. Pain present. No BM this morning. Bulk forming laxative added. Using incentive spirometry. September 13: Up in a recliner. Capone catheter. Clear urine. Flatus. Pain present. Did walk in the hallway. September 14: Sitting up. Oral intake fair. Constipated. Dulcolax suppository ordered. Received lactulose 20 g yesterday. No BM. Making good urine. is present. Had a lengthy discussion with the patient and given update. Questions answered September 15: Patient had a good bowel movement. Some shortness of breath. Pain present. CT chest: Showing moderate to large right pleural fluid collection. Flail chest. Active Medications Acetaminophen (Acetaminophen Tab 325 Mg Tab) 650 mg PO Q4HR PRN PRN Reason: Fever and/or Mild Pain Last Admin: 09/13/21 20:24 Dose: 650 mg Documented by: Hydrocodone Bitart/Acetaminophen (Hydrocodone/Apap 5-325mg 1 Each Tab) 1 each PO Q4HR PRN PRN Reason: Moderate Pain Last Admin: 09/15/21 09:36 Dose: 1 each Documented by: Albuterol/Ipratropium (Ipratropium-Albuterol 3 Ml Neb) 3 ml INHALATION RT-QID [facility] Last Admin: 09/15/21 11:43 Dose: 3 ml Documented by: Docusate Sodium (Docusate 100 Mg Cap) 100 mg PO BID [facility] Last Admin: 09/15/21 09:37 Dose: 100 mg Documented by: Famotidine (Famotidine 20 Mg Tab) 20 mg PO BID [facility] Last Admin: 09/15/21 09:36 Dose: 20 mg Documented by: Ferrous Sulfate (Ferrous Sulfate 325 Mg Tab) 325 mg PO BID-W/MEALS [facility] Glipizide (Glipizide 5 Mg Tab) 5 mg PO AC-BID [facility] Last Admin: 09/15/21 09:36 Dose: 5 mg Documented by: Insulin Aspart (Insulin Aspart (Novolog) 100 Unit/Ml Vial) 0 unit SQ AC-TID [facility]; Protocol Last Admin: 09/15/21 12:41 Dose: 2 unit Documented by: Lidocaine (Lidocaine 5% Patch) 1 patch TOPICAL DAILY [facility]; Protocol Last Admin: 09/15/21 09:37 Dose: 1 patch Documented by: Lisinopril (Lisinopril 10 Mg Tab) 10 mg PO [facility] Last Admin: 09/14/21 22:35 Dose: 10 mg Documented by: Metformin HCl (Metformin 500 Mg Tab) 1,000 mg PO BID-W/MEALS [facility] Last Admin: 09/15/21 09:36 Dose: 1,000 mg Documented by: Montelukast Sodium (Montelukast 10 Mg Tab) 10 mg PO DAILY [facility] Last Admin: 09/15/21 09:36 Dose: 10 mg Documented by: Morphine Sulfate (Morphine Sulfate 4 Mg/Ml Syringe) 4 mg IV Q2HR PRN PRN Reason: Pain Scale 8 to 10 Last Admin: 09/15/21 01:47 Dose: 4 mg Documented by: Naloxone HCl (Naloxone 0.4 Mg/Ml 1 Ml Vial) 0.2 mg IV Q2M PRN PRN Reason: Opioid Reversal Ondansetron HCl (Ondansetron 4 Mg/2 Ml Vial) 4 mg IVP Q6HR PRN PRN Reason: Nausea And Vomiting Last Admin: 09/09/21 00:26 Dose: 4 mg Documented by: Psyllium Hydrophilic Mucilloid (Psyllium Husk 100% 6 Gm Packet) 6 gm PO BID [facility] Last Admin: 09/15/21 09:37 Dose: Not Given Documented by: Tamsulosin HCl (Tamsulosin 0.4 Mg Cap.Er.24h) 0.4 mg PO DAILY [facility] Last Admin: 09/15/21 09:36 Dose: 0.4 mg Documented by: Past medical history to include: Diabetes, hypertension, BPH, kidney stone with a double-J stent on the left side previously, 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 Alcohol rarely. Does smoke in the past. Works at the airport at [place] Family history: CAD Physical examination: VITAL SIGNS: 98.9, 74, 18, 136/74, 90% room air GENERAL up in chair, awake, comfortable EYES: Pupils equal. Conjunctiva normal. HEENT: External appearance of nose and ears normal, oral cavity grossly normal. NECK: JVD not raised; masses not palpable. HEART: First and second heart sounds are normal; no edema. LUNGS: Respiratory rate increased; decreased breath sounds on the right side. ABDOMEN: Soft, nontender, liver spleen not palpable, no masses palpable. PSYCH: Alert and oriented x3; mood and affect normal. MUSCULOSKELETAL:No Clubbing/cyanosis;muscles-grossly intact. Right chest wall tenderness INVESTIGATIONS, reviewed in the clinical context: CT chest: Large right pleural effusion Chest ultrasound: Pleural effusion September 13: White count 6.70 globin 10.6 potassium 4.1 creatinine 0.8 AST 32 ALT 82 September 12: White count 8.2 hemoglobin 10.3 platelets 131 potassium 3.9 creatinine 0.85 AST 37 ALT 106 albumin 2.7 September 11: White count 9.7 hemoglobin 10.7 platelets 136 potassium 4.2 creatinine 0.9 total bilirubin 0.6 AST 50 ALT 170 CPK 723 September 10: White count 11.6 hemoglobin 12.2 platelets 161 sodium 133 potassium 4.5 AST 112 ALT 274 CPK 1283 albumin 3.4 September 09: Creatinine kinase 1582. Glucose 222 hemoglobin 13.4 potassium 5.9 and repeat 4.4 White count 12 hemoglobin 15.1 platelets 209 potassium 4.3 creatinine 1.08 Lactic acid 4.1 AST 6 63 ALT 668 UA positive for blood RBC Chest x-ray film personally reviewed by me-right diaphragm elevated. Right rib fractures [address] thoracic or lumbar spine without contrast: Multiple right rib fractures at multiple locations suggestive of flail chest associated with a right pleural effusion slight hemothorax small right-sided pneumothorax CT chest abdomen pelvis: Ill-defined soft tissue nodule right internal gland 3.3 cm. Some tracking blood. Nonobstructive right renal calculi of to 4 mm. 1.7 parenchymal hematoma and laceration along the right lower pole right kidney. Some Slight hematoma. Left-sided colonic diverticulosis. Prostate gland enlarged. Some DJD changes. EKG tracing personally reviewed by me-normal sinus rhythm. Rate 73 2-D echocardiogram: EF 55%. No pericardial effusion. Computed tomography scan brain and C-spine without contrast: Unremarkable Assessment and plan: -Acute rhabdomyolysis secondary to muscle injury from fall: Improved. -Left-sided sigmoid diverticulosis: Asymptomatic -Right-sided kidney stones, asymptomatic -BPH with bladder outflow obstruction Continue Capone catheter. -Lactic acidosis, type II. No sepsis IV fluids -Right-sided pulmonary contusion/atelectasis, small pneumothorax Incentive spirometry -Right-sided flail chest Cardiothoracic surgery follow. Incentive spirometry -Right-sided multiple rib fractures, liver hematoma, right perinephritic bleeding Follow with surgery -Right hemothorax/pleural effusion Follow with cardiothoracic surgery -Elevated liver enzymes, liver injury: Improving Follow LFTs -Diabetes mellitus type 2, uncontrolled with hyperglycemia Glipizide 5 mg twice a day. Diabetic diet. Follow Accu-Cheks. Glucophage -Essential hypertension Lisinopril 10 mg daily at bedtime -Albumin 3.3/hypoalbuminemia Acute phase reactant Continue current medication treatment plan. Discussed with patient. Blood cardiothoracic surgery decide about right-sided hemothorax/pleural effusion Thank you Dr. Brush
--- NOTE | 2021-09-15 15:23 | P.PN ---
Subjective Progress Note Date: 09/15/21 Principal diagnosis: chest wall pain, trauma, multiple rib Fx 65-year-old male, who was evaluated in the emergency room yesterday, September 08. He seen today in room 264. The patient sees Dr. Sarabia and jaylen as a primary. He apparently fell from a ladder. He was trying to get a recluse out of his garage. He fell backwards and landed on his head. He apparently lost consciou sness for about 40 minutes. He apparently was discovered by his grandson, call for help. When he was picked up by EMS, he apparently was having some amnesia, and repetitive questioning. He also complained of some pain in his right upper chest and back area, with radiation to the right shoulder area. The patient was not on any blood thinners. The patient has a history of hypertension, diabetes, and BPH. When I spoke to the ER physician, he told me that the patient was discovered to have multiple rib fractures on the right lateral chest on the right, fractured ribs 3 through 10 on the right, a small pneumothorax and hemothorax on the right, and a pulmonary contusion. In addition there was a liver hematoma, kidney laceration, and adrenal hematoma. White count 14.6, hemoglobin 13.4, hematocrit 41.8, and platelet count. 228,000. Sodium 132, potassium 5.9, chlorides 99, CO2 20, BUN 20, and creatinine 1.17. The patient's lactic acid initially was 5.4. Repeat was 3.3. AST was 379, and ALT was 496. CT of the head and cervical spine, was essentially unremarkable. CT of the chest abdomen pelvis revealed a flail chest on the right, with fractures of ribs 3 through 10, except rib 9, underlying small hemothorax and 5% pneumothorax, pulmonary contusion, grade 3 liver hematoma, adrenal hematoma, grade 3 right renal injury with upper pole contusion, among other things. Progress note dated 09/10/2021. 65-year-old male, again seen in room 264. Other than pain, the patient is doing relatively well. He remains on saline at 200 mL an hour, and O2 at 2 L. I've asked him to use incentive spirometer every hour while awake. Clinically, the patient stable for transfer out of the intensive care unit. Laboratory data includes a white count 11.6, hemoglobin 12.2, hematocrit 38.1, and platelet count 161,000. Sodium 133, potassium 4.5, chlorides 102, CO2 27, anion gap 4, BUN 15, and creatinine 1.02. His total CK was 1283. AST 112, ALT 274. Albumin 3.4. The patient's chest x-ray show some bibasilar infiltrates and/or atelectasis, right greater than left. The patient is seen today 09/11/2021 in follow-up on the regular medical floor. He is currently sitting up in a chair at the bedside. Awake and alert in no acute distress. His pain is well controlled. He's down to 2 L nasal cannula maintaining good O2 saturations in the 90s. Chest x-ray does continue to show right lower lobe collapse. He is encouraged regarding the increased use the incentive spirometer and cough and deep breathing exercises. Urine culture reveals no growth. White count 9.7. Hemoglobin 10.7. Platelet count 136. Sodium 135. Potassium 4.2. Bicarb 24. BUN 13. Creatinine 0.9. AST 50. ALT 170. He is continued on Singulair, DuoNeb inhalations. Currently on diuretics 20 mg IV every 12 hours. He is currently in a negative 4 liter balance. Remains on normal saline at 200 ML's per hour per trauma services. The patient is seen today 09/12/2021 in follow-up on the regular medical floor. He is awake and alert in no acute distress. Sitting up in a chair at the bedside. Denies any worsening shortness of breath, cough or congestion. He is maintaining good O2 saturations in the 90s on 4 L/m per nasal cannula. Normal saline at 100 ML's per hour. Follow-up chest x-ray continues to show a known right-sided flail chest. Moderate amount of fluid in the right may have mild increase. Noted fractures of second third fourth fifth and sixth ribs on the right. He continues to work well with the incentive spirometer. Capone catheter remains in place with clear urine. Urine culture revealed no growth. White count 8.2. Hemoglobin 10.3. Platelets 131. Sodium 133. Potassium 3.9. BUN 14. Creatinine 0.85. Glucose 209. CK level 379. AST 37. ALT 106. The patient is seen today 09/13/2021 in follow-up on the regular medical floor. He is currently sitting up in chair at the bedside. Awake and alert in no acute distress. Maintaining O2 saturations in the 90s on 2 L/m per nasal cannula. He has normal saline running at 75 ML's per hour. Ultrasound of the right chest revealed a small effusion at 4.3 cm. There is some noted increased atelectasis on his chest x-ray. He is again educated regarding the use the incentive spirometer and cough and deep breathing exercises. He's been up ambulating in the hallway with assistance. White count 6.7. Hemoglobin 10.6. Sodium 137. Potassium 4.1. Creatinine 0.8. Glucose 182. He remains on bronchodilators. Colace and Metamucil initiated due to constipation. On 09/14/2021 patient seen in follow-up on medical surgical floor. He is awake and alert, in no acute distress, he is currently on 2 L of oxygen satting 94%, vital signs have been stable, blood pressure has been stable, patient has been working on incentive spirometer, he is achieving 1.5 L on the today. His lung sounds are diminished, no rhonchi or wheezing. His last chest x-ray from yesterday showed persistent small to moderate-sized right pleural effusion related to probable hemothorax with associated right basilar opacity favoring co mpressive atelectasis, no significant change compared one day earlier. Today's labs are still pending, yesterday's labs revealed a white blood cell, 6.7, hemoglobin of 10.6, platelet count of 157 electrolytes and renal profile were unremarkable. Patient has been getting up out of bed and ambulating, tolerating activity well, abdomen is soft, nontender. On 09/15/2021 patient seen in follow-up. Patient sitting up in a chair, he is currently on 2 L of oxygen pulse ox 95%, denies any worsening dyspnea, his clinical exam reveals diminished breath sounds at the right base and based on that and his previous chest x-rays a decision was made to proceed with a CT chest without contrast to evaluate the right-sided pleural fluid collection. CT chest has been reviewed showing moderate to large size right pleural effusion which has increased from initial computed tomography scan of the chest on a dmission on 09/08/2021. Patient has been working on incentive spirometer, he is achieving 2.5 L on the today. His pain is fairly well-controlled, does not appear to be in any acute distress. Today's labs have been reviewed Objective - Vital Signs Vital signs: Vital Signs Temp 98.9 F 09/15/21 13:54 Pulse 74 09/15/21 13:54 Resp 18 09/15/21 13:54 BP 136/74 09/15/21 13:54 Pulse Ox 90 L 09/15/21 13:54 Intake & Output 09/14/21 09/15/21 09/15/21 18:59 06:59 18:59 Intake Total 1080 750 Output Total 850 300 Balance 230 450 Intake: Intake, IV Titration 750 Amount Sodium Chloride 0.9% 1, 750 000 ml @ 75 mls/hr IV . [id number] SAURAV Rx#:[id number] Oral 1080 Output: Urine 850 300 Other: Voiding Method Toilet Toilet Urinal Urinal # Voids 2 - Exam GENERAL EXAM: Alert, very pleasant 65-year-old white male, resting in bed on room air with pulse ox of 90% , comfortable in no apparent distress. HEAD: Normocephalic/atraumatic. EYES: Normal reaction of pupils, equal size. Conjunctiva pink, sclera white. NOSE: Clear with pink turbinates. THROAT: No erythema or exudates. NECK: No masses, no JVD, no thyroid enlargement, no adenopathy. CHEST: No chest wall deformity. Symmetrical expansion. chest wall is tender to palpation LUNGS: diminished breath sounds at the bases, no rhonchi, no crackles no wheezes CVS: Regular rate and rhythm, normal S1 and S2, no gallops, no murmurs, no rubs ABDOMEN: Soft, nontender. No hepatosplenomegaly, normal bowel sounds, no guarding or rigidity. EXTREMITIES: No clubbing, no edema, no cyanosis, 2+ pulses and upper and lower extremities. MUSCULOSKELETAL: Muscle strength and tone normal. SPINE: No scoliosis or deformity SKIN: No rashes CENTRAL NERVOUS SYSTEM: Alert and oriented -3. No focal deficits, tone is normal in all 4 extremities. PSYCHIATRIC: Alert and oriented -3. Appropriate affect. Intact judgment and insight. - Labs CBC & Chem 7: 09/15/21 04:06 09/15/21 04:06 Labs: Abnormal Lab Results - Last 24 Hours (Table) 09/14/21 09/15/2122 Range/Units 16:05 04:06 04:06 RBC 3.44 L (4.40-5.60) X 10*6/uL Hgb 10.6 L (13.0-17.0) g/dL Hct 32.2 L (39.6-50.0) % Anion Gap 9.00 L (10.00-18.00) mmol/L Glucose 129 H (70-110) mg/dL POC Glucose (mg/dL) 136 H (75-99) mg/dL Calcium 8.6 L (8.7-10.3) mg/dL ALT 60 H (10-49) U/L Total Protein 5.1 L (6.2-8.2) g/dL Albumin 3.3 L (3.8-4.9) g/dL 09/15/21 09/15/21 Range/Units 06:49 11:53 RBC (4.40-5.60) X 10*6/uL Hgb (13.0-17.0) g/dL Hct (39.6-50.0) % Anion Gap (10.00-18.00) mmol/L Glucose (70-110) mg/dL POC Glucose (mg/dL) 138 H 162 H (75-99) mg/dL Calcium (8.7-10.3) mg/dL ALT (10-49) U/L Total Protein (6.2-8.2) g/dL Albumin (3.8-4.9) g/dL Assessment and Plan Plan: Assessment: #1. Acute hypoxic respiratory failure secondary to multiple injuries including flail chest on the right, fractures of the ribs 3 through 10, except for #9, small hemothorax, pulmonary contusion, small pneumothorax, liver hematoma, kidney laceration and adrenal hematoma secondary to a fall from a ladder #2. Loss of consciousness from the fall for 40 minutes, CT of the head and cervical spine showed no intracranial posttraumatic sequelae or acute calvarial bone fracture, no acute traumatic bony injury to the cervical spine #3. History of BPH #4. History of hypertension #5. History of diabetes mellitus #6. Increased right-sided pleural effusion, possibly hemothorax, we'll proceed with right-sided thoracentesis tomorrow on 09/16/2021 Plan: Patient was seen and evaluated at the bedside, chest x-ray reviewed Computed tomography scan of the chest has been reviewed There is increasing right-sided plural effusion/hemothorax We'll proceed with right-sided thoracentesis tomorrow Obtain patient's consented for right-sided thoracentesis Continue encouraging deep breathing and coughing We'll follow I have personally seen and examined the patient, performed the documentation and the assessment and plan as written. Number of minutes spent on the visit: [10] I have personally seen and examined the patient, reviewed the PACKING CHECKER /PAs history, exam and MDM and agree with the assessment and plan as written. Based on total visit time, I have performed more than 50% of the visit. The patient has increased opacification of the right lung. Suspect ALLERGIC right-sided pleural effusion. Proceed with a non-Contrast CAT scan of the chest and will do a thoracentesis of the significant examination of the pleural fluid on the right Time with Patient: Less than 30
[2021-09-15 16:32] LABS: Glucose,Whole Blood 99 mg/dL (75-99)
[2021-09-15] MEDS: FERROUS SULFATE 325 MG TAB PO SCH (16:56)
--- NOTE | 2021-09-15 18:02 | P.PN ---
Progress Note - Text Progress Note Date: 09/15/21 Patient remains relatively unchanged. His chest computed tomography scan shows a large pleural effusion on the right side. Apparently he is being scheduled for thoracentesis tomorrow. Patient has complaints of some right chest wall pain with deep inspiration. Otherwise he remained stable. On exam vital signs are stable. Right chest wall pain is stable. Abdomen is soft. Patient has multiple right rib fractures with flail chest and now pleural effusion. Patient undergo thoracentesis in the morning.
[2021-09-15] MEDS: lisinopriL 10 MG TAB PO SCH (20:01)
[2021-09-15 20:42] LABS: Glucose,Whole Blood 112 mg/dL (75-99)
[2021-09-16 07:00] LABS: Glucose,Whole Blood 146 mg/dL (75-99)
[2021-09-16] MEDS: HYDROcodone/APAP 5-325MG 1 EACH TAB PO PRN ×4 (07:14→21:06)
[2021-09-16] MEDS: FERROUS SULFATE 325 MG TAB PO SCH ×2 (07:48→17:29)
[2021-09-16] MEDS: MONTELUKAST 10 MG TAB PO SCH (07:48)
[2021-09-16] MEDS: DOCUSATE 100 MG CAP PO SCH ×2 (07:49→21:07)
[2021-09-16] MEDS: LIDOCAINE 5% PATCH TOPICAL SCH (07:49)
[2021-09-16] MEDS: metFORMIN 500 MG TAB PO SCH ×2 (07:49→17:29)
[2021-09-16] MEDS: FAMOTIDINE 20 MG TAB PO SCH ×2 (07:49→21:07)
[2021-09-16] MEDS: glipiZIDE 5 MG TAB PO SCH ×2 (07:49→17:29)
[2021-09-16] MEDS: INSULIN ASPART (NovoLOG) 100 UNIT/ML VIAL SQ SCH ×3 (07:50→16:33)
[2021-09-16] MEDS: PSYLLIUM HUSK 100% 6 GM PACKET PO SCH (07:51)
[2021-09-16] MEDS: IPRATROPIUM-ALBUTEROL 3 ML NEB INHALATION SCH ×4 (07:58→21:31)
--- NOTE | 2021-09-16 10:19 | P.PCN ---
Date of Procedure: 09/16/21 Preoperative Diagnosis: Right sided pleura effusion Postoperative Diagnosis: Right sided pleura effusion, bloody, rule out hemothorax Procedure(s) Performed: thoracentesis Anesthesia: local Surgeon: Rosy Sainz Estimated Blood Loss (ml): 0 Pathology: other Condition: stable Disposition: floor Operative Findings: A time out was performed and the chest x-ray was reviewed, the appropriate side was confirmed and marked. My hands were washed immediately prior to the procedure. I wore a surgical cap, mask with protective eyewear, sterile gown and sterile gloves throughout the procedure. The patient was prepped and draped in a sterile manner using chlorhexidine scrub after the appropriate level was percussed and confirmed by ultrasound. 1% lidocaine was used to anesthesize the skin, subcutaneous tissue, superior aspect of the rib periosteum and parietal pleura. A finder needle was then introduced over the superior aspect of the rib to locate the pleural fluid; 2colored fluid was aspirated at a depth of approximately 2 cm. A 10-blade scalpel was used to abbi the skin at the insertion site. The [id number] needle was then introduced through the skin incision into the pleural space using negative aspiration pressure and the red colometric indicator to confirm appropriate positioning of the needle. The thoracentesis catheter was then threaded without difficulty. 1500 ml of b;oody fluid was removed without difficulty. The catheter was then removed. No immedi ate complications were noted during the procedure. A post-procedure chest x-ray is pending at the time of this note. The fluid will be sent for studies. Estimated blood loss is 0cc
--- NOTE | 2021-09-16 10:49 | XR ---
EXAMINATION TYPE: XR chest 1V DATE OF EXAM: 09/16/2021 COMPARISON: 09/15/2021 HISTORY: Pain TECHNIQUE: Single frontal view of the chest is obtained. FINDINGS: Multiple displaced right-sided rib fractures seen with bilateral infiltrate and small effu magan greater on the right. Postsurgical change involving the vertebral column and right upper quadran t. There is an approximate 5% right apical pneumothorax. Arthropathy of the shoulders. IMPRESSION: 1. 5% right apical pneumothorax. 2. Displaced multiple rib fractures with bilateral infiltrate and small effusion greater on the right .
[2021-09-16 11:34] LABS: Glucose,Whole Blood 121 mg/dL (75-99)
--- NOTE | 2021-09-16 12:27 | P.PN ---
Progress Note - Text Progress Note Date: 09/16/21 Patient's resting comfortably in his bed. He underwent right thoracentesis today with Dr. Sainz. Apparently large amount of bloody fluid was removed. Patient states he feels slightly better. He still has right chest wall pain with deep breaths. On exam vital signs are stable. Abdomen is soft. Status post multiple right rib fractures with right flail chest. Patient will continue supportive care.
--- NOTE | 2021-09-16 13:16 | P.PN ---
Subjective Progress Note Date: 09/16/21 65-year-old male, who was evaluated in the emergency room yesterday, September 08. He seen today in room 264. The patient sees Dr. Sarabia and jaylen as a primary. He apparently fell from a ladder. He was trying to get a recluse out of his garage. He fell backwards and landed on his head. He apparently lost consciousness for about 40 minutes. He apparently was discovered by his grandson, call for help. When he was picked up by EMS, he apparently was having some amnesia, and repetitive questioning. He also complained of some pain in his right upper chest and back area, with radiation to the right shoulder area. The patient was not on any blood thinners. The patient has a history of hypertension, diabetes, and BPH. When I spoke to the ER physician, he told me that the patient was discovered to have multiple rib fractures on the right lateral chest on the right, fractured ribs 3 through 10 on the right, a small pneumothorax and hemothorax on the right, and a pulmonary contusion. In addit ion there was a liver hematoma, kidney laceration, and adrenal hematoma. White count 14.6, hemoglobin 13.4, hematocrit 41.8, and platelet count. 228,000. Sodium 132, potassium 5.9, chlorides 99, CO2 20, BUN 20, and creatinine 1.17. The patient's lactic acid initially was 5.4. Repeat was 3.3. AST was 379, and ALT was 496. CT of the head and cervical spine, was essentially unremarkable. CT of the chest abdomen pelvis revealed a flail chest on the right, with fractures of ribs 3 through 10, except rib 9, underlying small hemothorax and 5% pneumothorax, pulmonary contusion, grade 3 liver hematoma, adrenal hematoma, grade 3 right renal injury with upper pole contusion, among other things. Progress note dated 09/10/2021. 65-year-old male, again seen in room 264. Other than pain, the patient is doing relatively well. He remains on saline at 200 mL an hour, and O2 at 2 L. I've asked him to use incentive spirometer every hour while awake. Clinically, the patient stable for transfer out of the intensive care unit. Laboratory data includes a white count 11.6, hemoglobin 12.2, hematocrit 38.1, and platelet count 161,000. Sodium 133, potassium 4.5, chlorides 102, CO2 27, anion gap 4, BUN 15, and creatinine 1.02. His total CK was 1283. AST 112, ALT 274. Albumin 3.4. The patient's chest x-ray show some bibasilar infiltrates and/or atelectasis, right greater than left. The patient is seen today 09/11/2021 in follow-up on the regular medical floor. He is currently sitting up in a chair at the bedside. Awake and alert in no acute distress. His pain is well controlled. He's down to 2 L nasal cannula maintaining good O2 saturations in the 90s. Chest x-ray does continue to show right lower lobe collapse. He is encouraged regarding the increased use the incentive spirometer and cough and deep breathing exercises. Urine culture reveals no growth. White count 9.7. Hemoglobin 10.7. Platelet count 136. Sodium 135. Potassium 4.2. Bicarb 24. BUN 13. Creatinine 0.9. AST 50. ALT 170. He is continued on Singulair, DuoNeb inhalations. Currently on diuretics 20 mg IV every 12 hours. He is currently in a negative 4 liter balance. Remains on normal saline at 200 ML's per hour per trauma services. The patient is seen today 09/12/2021 in follow-up on the regular medical floor. He is awake and alert in no acute distress. Sitting up in a chair at the [facility]. Denies any worsening shortness of breath, cough or congestion. He is maintaining good O2 saturations in the 90s on 4 L/m per nasal cannula. Normal saline at 100 ML's per hour. Follow-up chest x-ray continues to show a known right-sided flail chest. Moderate amount of fluid in the right may have mild increase. Noted fractures of second third fourth fifth and sixth ribs on the right. He continues to work well with the incentive spirometer. Capone catheter remains in place with clear urine. Urine culture revealed no growth. White count 8.2. Hemoglobin 10.3. Platelets 131. Sodium 133. Potassium 3.9. BUN 14. Creatinine 0.85. Glucose 209. CK level 379. AST 37. ALT 106. The patient is seen today 09/13/2021 in follow-up on the regular medical floor. He is currently sitting up in chair at the bedside. Awake and alert in no acute distress. Maintaining O2 saturations in the 90s on 2 L/m per nasal cannula. He has normal saline running at 75 ML's per hour. Ultrasound of the right chest revealed a small effusion at 4.3 cm. There is some noted increased atelectasis on his chest x-ray. He is again educated regarding the use the incentive spirometer and cough and deep breathing exercises. He's been up ambulating in the hallway with assistance. White count 6.7. Hemoglobin 10.6. Sodium 137. Potassium 4.1. Creatinine 0.8. Glucose 182. He remains on bronchodilators. Colace and Metamucil initiated due to constipation. Patient is seen today 09/16/2021 in follow-up on the regular medical floor. He is currently sitting up at the bedside. Awake and alert in no acute distress. Computed tomography scan of the chest x-ray revealed a moderate to large right- sided pleural fluid collection. Findings consistent with flail chest redemonstrated. He did undergo a right-sided thoracentesis today by Dr. Sainz with 1.5 L of bloody fluid removed. Follow-up chest x-ray did reveal an 5% right apical pneumothorax. Significant improvement in the lung volume. Still with some small amount of right-sided effusion. He is maintaining O2 saturations in the 90s on room air. He's been afebrile. Hemodynamically stable. Blood glucose 121. He continues to work well with the incentive spirometer. He remains on bronchodilators, Singulair. Objective - Vital Signs Vital signs: Vital Signs Temp 97.7 F 09/16/21 07:24 Pulse 74 09/16/21 12:01 Resp 18 09/16/21 07:24 BP 180/87 09/16/21 07:24 Pulse Ox 90 L 09/16/21 07:24 Intake & Output 09/15/21 09/16/21 09/16/21 18:59 06:59 18:59 Other: Voiding Method Toilet Toilet Urinal Urinal # Voids 4 2 - Exam GENERAL EXAM: Alert, very pleasant 65-year-old gentleman, up in a chair at the bedside, on room air, comfortable in no apparent distress. HEAD: Normocephalic. EYES: Normal reaction of pupils, equal size. NOSE: Clear with pink turbinates. THROAT: No erythema or exudates. NECK: No masses, no JVD. CHEST: No chest wall deformity. LUNGS: Equal air entry with crackles in the right lung base. CVS: S1 and S2 normal with no audible murmur, regular rhythm. ABDOMEN: No hepatosplenomegaly, normal bowel sounds, no guarding or rigidity. SPINE: No scoliosis or deformity SKIN: No rashes CENTRAL NERVOUS SYSTEM: No focal deficits, tone is normal in all 4 extremities. EXTREMITIES: There is no peripheral edema. No clubbing, no cyanosis. Peripheral pulses are intact. - Labs CBC & Chem 7: 09/15/21 04:06 09/15/21 04:06 Labs: Abnormal Lab Results - Last 24 Hours (Table) 09/15/21 09/16/21 09/16/21 Range/Units 20:41 06:58 11:32 POC Glucose (mg/dL) 112 H 146 H 121 H (75-99) mg/dL Assessment and Plan Assessment: 1 Acute hypoxemic respiratory failure secondary to status post fall from a ladder, with multiple injuries including flail chest on the right, fractures of ribs 3 through 10 except #9, on the right, small hemothorax, pulmonary contusion, small pneumothorax, liver hematoma, kidney laceration, and adrenal hematoma. He did develop significant right-sided visual pleural effusion. Status post thoracentesis 09/16/2021 of 1.5 L of bloody fluid removed. Fluid analysis, cytology pending 2 Apparent lost of consciousness from fall, for 40 minutes. 3 History of BPH. 4 History of hypertension. 5 History of diabetes mellitus. Plan: The patient was seen and evaluated Computed tomography scan reviewed Right-sided thoracentesis performed today with 1.5 L of bloody fluid removed Follow-up chest x-ray revealing no significant pneumothorax Increase the use of the incentive spirometer Increase his activity as tolerated Titrate down the FiO2 as tolerated Follow-up chest x-ray in the a.m. Probable discharge in the a.m. We'll continue to follow I have personally seen and examined the patient, performed the documentation and the assessment and plan as written. Number of minutes spent on the visit: 10. Plan: I have personally seen and examined the patient and reviewed the documentation. I performed a joint evaluation with the nurse practitioner in this evaluation was done more than 20 minutes. I fully agree with the documentation above and the plan of care. There is a joint evaluation was done along with the nurse practitioner. CAT scan of the chest was reviewed. Hemostasis was suspected. Sources of the right lung was done successfully. Awaiting follow-up chest x- ray. Clinically improved.
--- NOTE | 2021-09-16 14:58 | P.PN ---
Progress Note - Text Progress Note Date: 09/16/21 - Chief Complaint Fall Hospital course: This is a very pleasant 65-year-old patient who follows with Dr. Riley. Chronic stable medical conditions include diabetes, hypertension, BPH and history of kidney stones. 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 Patient was up on a ladder trying to get total for her: And he fell. As a result patient had multiple injuries. Patient developed a flail chest on the right side of the rib fractures 3 through 10, small hemothorax and pneumothorax, pulmonary contusion, liver hematoma could not kidney laceration with subcapsular hematoma, anginal hematoma possibly, patient is currently in the ICU. Decreased appetite. Significant pain. Awake. Had urinary retention and had to have a catheter. at the bedside. Denies any bleeding from the nose. Fell about 10 feet backwards. Landed on his back and possibly hit his head. Was possibly unconscious for about 15 minutes. Admitted with acute rhabdomyolysis, active of Capone catheter placed because of bladder outflow obstruction, right-sided pulmonary contusion, right-sided flail chest, multiple right-sided rib fractures, elevated liver enzymes, liver injury. September 10: Moved to the medical floor. Having pain on the right chest wall. Eating little. Has a Capone catheter. Right-sided pulmonary hemorrhage/atelectasis on x-ray. Has not passed any flatus. September 11: Eating better. Using incentive spirometry. Capone catheter with clear urine. Pain at fracture site persist. Has passed flatus. Up in a recliner. Rhabdomyolysis improving. Right-sided atelectasis/hemothorax persists September 12: Eating okay. Capone catheter. Clear urine. Pain present. No BM this morning. Bulk forming laxative added. Using incentive spirometry. September 13: Up in a recliner. Capone catheter. Clear urine. Flatus. Pain present. Did walk in the hallway. September 14: Sitting up. Oral intake fair. Constipated. Dulcolax suppository ordered. Received lactulose 20 g yesterday. No BM. Making good urine. is present. Had a lengthy discussion with the patient and given update. Questions answered September 15: Patient had a good bowel movement. Some shortness of breath. Pain present. CT chest: Showing moderate to large right pleural fluid collection. Flail chest. September 16: Patient had right-sided thoracentesis and 1500 mL of bloody fluid was removed. Breathing stable. Pain present. Oral intake fair. Active Medications Acetaminophen (Acetaminophen Tab 325 Mg Tab) 650 mg PO Q4HR PRN PRN Reason: Fever and/or Mild Pain Last Admin: 09/13/21 20:24 Dose: 650 mg Documented by: Hydrocodone Bitart/Acetaminophen (Hydrocodone/Apap 5-325mg 1 Each Tab) 1 each PO Q4HR PRN PRN Reason: Moderate Pain Last Admin: 09/16/21 13:46 Dose: 1 each Documented by: Albuterol/Ipratropium (Ipratropium-Albuterol 3 Ml Neb) 3 ml INHALATION RT-QID [facility] Last Admin: 09/16/21 11:52 Dose: 3 ml Documented by: Docusate Sodium (Docusate 100 Mg Cap) 100 mg PO BID [facility] Last Admin: 09/16/21 07:49 Dose: 100 mg Documented by: Famotidine (Famotidine 20 Mg Tab) 20 mg PO BID [facility] Last Admin: 09/16/21 07:49 Dose: 20 mg Documented by: Ferrous Sulfate (Ferrous Sulfate 325 Mg Tab) 325 mg PO BID-W/MEALS [facility] Last Admin: 09/16/21 07:48 Dose: 325 mg Documented by: Glipizide (Glipizide 5 Mg Tab) 5 mg PO AC-BID [facility] Last Admin: 09/16/21 07:49 Dose: 5 mg Documented by: Insulin Aspart (Insulin Aspart (Novolog) 100 Unit/Ml Vial) 0 unit SQ AC-TID [facility]; Protocol Last Admin: 09/16/21 11:51 Dose: Not Given Documented by: Lidocaine (Lidocaine 5% Patch) 1 patch TOPICAL DAILY [facility]; Protocol Last Admin: 09/16/21 07:49 Dose: 1 patch Documented by: Lisinopril (Lisinopril 10 Mg Tab) 10 mg PO HS [facility] Last Admin: 09/15/21 20:01 Dose: 10 mg Documented by: Metformin HCl (Metformin 500 Mg Tab) 1,000 mg PO BID-W/MEALS [facility] Last Admin: 09/16/21 07:49 Dose: 1,000 mg Documented by: Montelukast Sodium (Montelukast 10 Mg Tab) 10 mg PO DAILY [facility] Last Admin: 09/16/21 07:48 Dose: 10 mg Documented by: Morphine Sulfate (Morphine Sulfate 4 Mg/Ml Syringe) 4 mg IV Q2HR PRN PRN Reason: Pain Scale 8 to 10 Last Admin: 09/15/21 01:47 Dose: 4 mg Documented by: Naloxone HCl (Naloxone 0.4 Mg/Ml 1 Ml Vial) 0.2 mg IV Q2M PRN PRN Reason: Opioid Reversal Ondansetron HCl (Ondansetron 4 Mg/2 Ml Vial) 4 mg IVP Q6HR PRN PRN Reason: Nausea And Vomiting Last Admin: 09/09/21 00:26 Dose: 4 mg Documented by: Tamsulosin HCl (Tamsulosin 0.4 Mg Cap.Er.24h) 0.4 mg PO DAILY [facility] Last Admin: 09/15/21 09:36 Dose: 0.4 mg Documented by: Past medical history to include: Diabetes, hypertension, BPH, kidney stone with a double-J stent on the left side previously, 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 Alcohol rarely. Does smoke in the past. [place] the [place] at [place] Family history: CAD Physical examination: VITAL SIGNS: 97.6, 88, 17, 145-83, 91% GENERAL up in chair, awake, comfortable EYES: Pupils equal. Conjunctiva normal. HEENT: External appearance of nose and ears normal, oral cavity grossly normal. NECK: JVD not raised; masses not palpable. HEART: First and second heart sounds are normal; no edema. LUNGS: Respiratory rate increased; decreased breath sounds on the right side. ABDOMEN: Soft, nontender, liver spleen not palpable, no masses palpable. PSYCH: Alert and oriented x3; mood and affect normal. MUSCULOSKELETAL:No Clubbing/cyanosis;muscles-grossly intact. Right chest wall tenderness INVESTIGATIONS, reviewed in the clinical context: CT chest: Large right pleural effusion Chest ultrasound: Pleural effusion September 13: White count 6.70 globin 10.6 potassium 4.1 creatinine 0.8 AST 32 ALT 82 September 12: White count 8.2 hemoglobin 10.3 platelets 131 potassium 3.9 creatinine 0.85 AST 37 ALT 106 albumin 2.7 September 11: White count 9.7 hemoglobin 10.7 platelets 136 potassium 4.2 creatinine 0.9 total bilirubin 0.6 AST 50 ALT 170 CPK 723 September 10: White count 11.6 hemoglobin 12.2 platelets 161 sodium 133 potassium 4.5 AST 112 ALT 274 CPK 1283 albumin 3.4 September 09: Creatinine kinase 1582. Glucose 222 hemoglobin 13.4 potassium 5.9 and repeat 4.4 White count 12 hemoglobin 15.1 platelets 209 potassium 4.3 creatinine 1.08 Lactic acid 4.1 AST 6 63 ALT 668 UA positive for blood RBC Chest x-ray film personally reviewed by me-right diaphragm elevated. Right rib fractures [address] thoracic or lumbar spine without contrast: Multiple right rib fractures at multiple locations suggestive of flail chest associated with a right pleural effusion slight hemothorax small right-sided pneumothorax CT chest abdomen pelvis: Ill-defined soft tissue nodule right internal gland 3.3 cm. Some tracking blood. Nonobstructive right renal calculi of to 4 mm. 1.7 parenchymal hematoma and laceration along the right lower pole right kidney. Some Slight hematoma. Left-sided colonic diverticulosis. Prostate gland enlarged. Some DJD changes. EKG tracing personally reviewed by me-normal sinus rhythm. Rate 73 2-D echocardiogram: EF 55%. No pericardial effusion. Computed tomography scan brain and C-spine without contrast: Unremarkable Assessment and plan: -Acute rhabdomyolysis secondary to muscle injury from fall: Improved. -Left-sided sigmoid diverticulosis: Asymptomatic -Right-sided kidney stones, asymptomatic -BPH with bladder outflow obstruction Continue Capone catheter. -Lactic acidosis, type II. No sepsis IV fluids -Right-sided pulmonary contusion/atelectasis, small pneumothorax Incentive spirometry -Right-sided flail chest Cardiothoracic surgery follow. Incentive spirometry -Right-sided multiple rib fractures, liver hematoma, right perinephritic bleeding Follow with surgery -Right hemothorax/pleural effusion 1500 mL removed by thoracentesis on September 16. -Elevated liver enzymes, liver injury: Improving Follow LFTs -Diabetes mellitus type 2, uncontrolled with hyperglycemia Glipizide 5 mg twice a day. Diabetic diet. Follow Accu-Cheks. Glucophage -Essential hypertension Lisinopril 10 mg daily at bedtime -Albumin 3.3/hypoalbuminemia Acute phase reactant 1500 mL of right thoracentesis of hemothorax done. Discussed with patient. Medications to continue. Increase activity. Thank you Dr. Brush
[2021-09-16 16:22] LABS: Glucose,Whole Blood 116 mg/dL (75-99)
[2021-09-16 20:32] LABS: Glucose,Whole Blood 114 mg/dL (75-99)
[2021-09-16] MEDS: lisinopriL 10 MG TAB PO SCH (21:07)
[2021-09-17 02:09] LABS: Appearance,BF Bloody
[2021-09-17 05:56] LABS: Glucose, BF Source Pleural Fluid; Glucose, Body Fluid 173 mg/dL; LDH, Body Fluid Source Pleural Fluid; T. Protein, Body Fluid Source Pleural Fluid; Total Protein, Body Fluid 3190 mg/dL
[2021-09-17 06:51] LABS: Glucose,Whole Blood 168 mg/dL (75-99)
[2021-09-17] MEDS: LIDOCAINE 5% PATCH TOPICAL SCH (07:43)
[2021-09-17] MEDS: FERROUS SULFATE 325 MG TAB PO SCH ×2 (07:47→16:55)
[2021-09-17] MEDS: TAMSULOSIN 0.4 MG CAP.ER.24H PO SCH (07:47)
[2021-09-17] MEDS: FAMOTIDINE 20 MG TAB PO SCH ×2 (07:47→20:55)
[2021-09-17] MEDS: HYDROcodone/APAP 5-325MG 1 EACH TAB PO PRN ×3 (07:47→20:55)
[2021-09-17] MEDS: MONTELUKAST 10 MG TAB PO SCH (07:48)
[2021-09-17] MEDS: INSULIN ASPART (NovoLOG) 100 UNIT/ML VIAL SQ SCH ×3 (07:48→16:56)
[2021-09-17] MEDS: metFORMIN 500 MG TAB PO SCH ×2 (07:48→16:55)
[2021-09-17] MEDS: glipiZIDE 5 MG TAB PO SCH ×2 (07:48→16:55)
[2021-09-17] MEDS: DOCUSATE 100 MG CAP PO SCH ×2 (07:56→20:55)
[2021-09-17] MEDS: IPRATROPIUM-ALBUTEROL 3 ML NEB INHALATION SCH ×4 (08:29→19:23)
--- NOTE | 2021-09-17 08:48 | XR ---
"EXAMINATION TYPE: XR chest 2V DATE OF EXAM: 09/17/2021 COMPARISON: 09/16/2021 INDICATION: Right-sided thoracentesis TECHNIQUE: Frontal and lateral views of the chest are obtained. FINDINGS: The heart size is normal. The pulmonary vasculature is normal. Small to moderate right pleural fluid is present. There is a small right apical pneumothorax. This wyatt s increased in size over the interval currently has a depth of 0.9 cm. Previous measurement was appro ximately 0.4 cm.. IMPRESSION: 1. Small increasing right apical pneumothorax. 2. [id number] right pleural fluid A [place] critical message alert has been initiated for Oneyda Brush MD via the [facility] | Critical Results System on 09/17/2021 8:45 AM. This message alert has been sent to Oneyda falcon MD via the preferences provided by the clinician for the receipt of Radiology Critical Findings. Message ID [id number]."
--- NOTE | 2021-09-17 10:10 | CT ---
EXAMINATION TYPE: CT chest wo con DATE OF EXAM: 09/17/2021 COMPARISON: Chest CT 2 days ago. HISTORY: RT hemothorax progress study. CT DLP: 707.7 mGycm. Automated Exposure Control for Dose Reduction was Utilized. TECHNIQUE: CT scan of the thorax is performed without IV contrast. FINDINGS: LUNGS: There is now small to moderate size right pleural fluid collection layering dependently decrea sed in size from prior. Associated right lung compressive atelectasis in the mid to lower lung is red emonstrated. Tiny left-sided pneumothorax anterior-inferior aspect estimated 5-10% seen best on sagit marcus image 52 with some herniated mediastinal fat on axial image 40 is noted. Left lung shows stable t iny left pleural effusion and associated posterior atelectasis and/or focal consolidation. Slight med iastinal shift to the left redemonstrated. MEDIASTINAL: Lack of IV contrast is noted to limit evaluation for mediastinal and especially hilar ad enopathy. There are persistent prominent but subcentimeter prevascular and AP window lymph nodes. N o cardiomegaly or pericardial effusion is seen. OTHER: Liver remains heterogeneously hypodense. Cholecystectomy clips are redemonstrated. Partial vis ualization of surgical change in the lumbar spine. Displaced and nondisplaced fractures of the posterior third through 10th ribs are redemonstrated. Non displaced and displaced fractures of the lateral right third through at least 7 rib fractures are red emonstrated. IMPRESSION: Small to moderate size right pleural effusion or fluid collection improved from 2 days ea rlier. There is confirmation of new anterior right basilar pneumothorax estimated at 5-10%. Other fi ndings stable.
[2021-09-17 11:10] LABS: Glucose,Whole Blood 118 mg/dL (75-99)
--- NOTE | 2021-09-17 12:51 | P.PN ---
Subjective Progress Note Date: 09/17/21 65-year-old male, who was evaluated in the emergency room yesterday, September 08. He seen today in room 264. The patient sees Dr. Sarabia and jaylen as a primary. He apparently fell from a ladder. He was trying to get a recluse out of his garage. He fell backwards and landed on his head. He apparently lost consciousness for about 40 minutes. He apparently was discovered by his grandson, call for help. When he was picked up by EMS, he apparently was having some amnesia, and repetitive questioning. He also complained of some pain in his right upper chest and back area, with radiation to the right shoulder area. The patient was not on any blood thinners. The patient has a history of hypertension, diabetes, and BPH. When I spoke to the ER physician, he told me that the patient was discovered to have multiple rib fractures on the right lateral chest on the right, fractured ribs 3 through 10 on the right, a small pneumothorax and hemothorax on the right, and a pulmonary contusion. In addit ion there was a liver hematoma, kidney laceration, and adrenal hematoma. White count 14.6, hemoglobin 13.4, hematocrit 41.8, and platelet count. 228,000. Sodium 132, potassium 5.9, chlorides 99, CO2 20, BUN 20, and creatinine 1.17. The patient's lactic acid initially was 5.4. Repeat was 3.3. AST was 379, and ALT was 496. CT of the head and cervical spine, was essentially unremarkable. CT of the chest abdomen pelvis revealed a flail chest on the right, with fractures of ribs 3 through 10, except rib 9, underlying small hemothorax and 5% pneumothorax, pulmonary contusion, grade 3 liver hematoma, adrenal hematoma, grade 3 right renal injury with upper pole contusion, among other things. Progress note dated 09/10/2021. 65-year-old male, again seen in room 264. Other than pain, the patient is doing relatively well. He remains on saline at 200 mL an hour, and O2 at 2 L. I've asked him to use incentive spirometer every hour while awake. Clinically, the patient stable for transfer out of the intensive care unit. Laboratory data includes a white count 11.6, hemoglobin 12.2, hematocrit 38.1, and platelet count 161,000. Sodium 133, potassium 4.5, chlorides 102, CO2 27, anion gap 4, BUN 15, and creatinine 1.02. His total CK was 1283. AST 112, ALT 274. Albumin 3.4. The patient's chest x-ray show some bibasilar infiltrates and/or atelectasis, right greater than left. The patient is seen today 09/11/2021 in follow-up on the regular medical floor. He is currently sitting up in a chair at the bedside. Awake and alert in no acute distress. His pain is well controlled. He's down to 2 L nasal cannula maintaining good O2 saturations in the 90s. Chest x-ray does continue to show right lower lobe collapse. He is encouraged regarding the increased use the incentive spirometer and cough and deep breathing exercises. Urine culture reveals no growth. White count 9.7. Hemoglobin 10.7. Platelet count 136. Sodium 135. Potassium 4.2. Bicarb 24. BUN 13. Creatinine 0.9. AST 50. ALT 170. He is continued on Singulair, DuoNeb inhalations. Currently on diuretics 20 mg IV every 12 hours. He is currently in a negative 4 liter balance. Remains on normal saline at 200 ML's per hour per trauma services. The patient is seen today 09/12/2021 in follow-up on the regular medical floor. He is awake and alert in no acute distress. Sitting up in a chair at the [facility]. Denies any worsening shortness of breath, cough or congestion. He is maintaining good O2 saturations in the 90s on 4 L/m per nasal cannula. Normal saline at 100 ML's per hour. Follow-up chest x-ray continues to show a known right-sided flail chest. Moderate amount of fluid in the right may have mild increase. Noted fractures of second third fourth fifth and sixth ribs on the right. He continues to work well with the incentive spirometer. Capone catheter remains in place with clear urine. Urine culture revealed no growth. White count 8.2. Hemoglobin 10.3. Platelets 131. Sodium 133. Potassium 3.9. BUN 14. Creatinine 0.85. Glucose 209. CK level 379. AST 37. ALT 106. The patient is seen today 09/13/2021 in follow-up on the regular medical floor. He is currently sitting up in chair at the bedside. Awake and alert in no acute distress. Maintaining O2 saturations in the 90s on 2 L/m per nasal cannula. He has normal saline running at 75 ML's per hour. Ultrasound of the right chest revealed a small effusion at 4.3 cm. There is some noted increased atelectasis on his chest x-ray. He is again educated regarding the use the incentive spirometer and cough and deep breathing exercises. He's been up ambulating in the hallway with assistance. White count 6.7. Hemoglobin 10.6. Sodium 137. Potassium 4.1. Creatinine 0.8. Glucose 182. He remains on bronchodilators. Colace and Metamucil initiated due to constipation. Patient is seen today 09/16/2021 in follow-up on the regular medical floor. He is currently sitting up at the bedside. Awake and alert in no acute distress. Computed tomography scan of the chest x-ray revealed a moderate to large right- sided pleural fluid collection. Findings consistent with flail chest redemonstrated. He did undergo a right-sided thoracentesis today by Dr. Sainz with 1.5 L of bloody fluid removed. Follow-up chest x-ray did reveal an 5% right apical pneumothorax. Significant improvement in the lung volume. Still with some small amount of right-sided effusion. He is maintaining O2 saturations in the 90s on room air. He's been afebrile. Hemodynamically stable. Blood glucose 121. He continues to work well with the incentive spirometer. He remains on bronchodilators, Singulair. 09/17/2021, [facility] the patient for a follow-up. Note that the patient underwent a thoracentesis yesterday and a total of 1.5 L of bloody pleural fluid was aspirated from the right lung. This subsequent chest x-ray obtained following the thoracentesis showed improvement. There was persistent volume loss and opacity in the right lower lobe in addition to fractured ribs. On today's evaluation, the patient was feeling better. The patient was on oxygen. A follow-up CAT scan of the chest was ordered which I reviewed. There is residual consolidation of the right lower lobe along with volume loss. His small amount of pleural fluid was still present on the right. The patient has multiple fractured ribs on the right. There is also a tiny 5% pneumothorax in the right lower lobe anteriorly. Despite all this, clinically the patient is feeling better. The pleural fluid was consistent with bloody effusion and not hemothorax. There are RBC level was 889910 and this is consistent with a bloody effusion. The white cell count is 708. The LDH level was 378, the total protein is at 3.1. The patient has no other new complaints. His pain is under good control for now. Objective - Vital Signs Vital signs: Vital Signs Temp 98.1 F 09/17/21 10:00 Pulse 68 09/17/21 10:00 Resp 14 09/17/21 10:00 BP 156/78 09/17/21 10:00 Pulse Ox 92 L 09/17/21 10:00 Intake & Output 09/16/21 09/17/21 09/17/21 18:59 06:59 18:59 Output Total 1000 Balance -1000 Output: Urine 1000 Other: Voiding Method Toilet Toilet Urinal Urinal # Voids 4 # Bowel Movements 1 - Exam GENERAL EXAM: Alert, very pleasant 65-year-old gentleman, up in a chair at the bedside, on room air, comfortable in no apparent distress. HEAD: Normocephalic. EYES: Normal reaction of pupils, equal size. NOSE: Clear with pink turbinates. THROAT: No erythema or exudates. NECK: No masses, no JVD. CHEST: No chest wall deformity. LUNGS: Equal air entry with crackles in the right lung base. There is improved aeration of the right lung on today's evaluation CVS: S1 and S2 normal with no audible murmur, regular rhythm. ABDOMEN: No hepatosplenomegaly, normal bowel sounds, no guarding or rigidity. SPINE: No scoliosis or deformity SKIN: No rashes CENTRAL NERVOUS SYSTEM: No focal deficits, tone is normal in all 4 extremities. EXTREMITIES: There is no peripheral edema. No clubbing, no cyanosis. Peripheral pulses are intact. - Labs CBC & Chem 7: 09/15/21 04:06 09/15/21 04:06 Labs: Abnormal Lab Results - Last 24 Hours (Table) 09/16/21 09/16/21 09/17/21 Range/Units 16:21 20:28 06:50 POC Glucose (mg/dL) 116 H 114 H 168 H (75-99) mg/dL 09/17/21 Range/Units 11:08 POC Glucose (mg/dL) 118 H (75-99) mg/dL Microbiology - Last 24 Hours (Table) 09/16/21 10:15 Gram Stain - Preliminary Pleural Fluid Body Fluid Culture - Preliminary 09/16/21 10:15 Anaerobic Culture - Preliminary Pleural Fluid 09/16/21 10:15 Acid Fast Bacilli Culture - Preliminary Pleural Fluid 09/16/21 10:15 Fungal Culture - Preliminary Pleural Fluid Assessment and Plan Assessment: 1 Acute hypoxemic respiratory failure secondary to status post fall from a ladder, with multiple injuries including flail chest on the right, fractures of ribs 3 through 10 except #9, on the right, small hemothorax, pulmonary contusion, small pneumothorax, liver hematoma, kidney laceration, and adrenal hematoma. He did develop significant right-sided visual pleural effusion. Status post thoracentesis 09/16/2021 of 1.5 L of bloody fluid removed. 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 In any rate, the expression of the right lung was not absolutely the patient continued to have persistent blood loss and consolidation of the right lower lobe, possibly a component of pulmonary contusion addition to some residual pleural fluid on the right. Clinically however the patient is feeling better. It and developed a pneumothorax ex vacuo anteriorly in the right lower lobe. 2 Apparent lost of consciousness from fall, for 40 minutes. 3 History of BPH. 4 History of hypertension. 5 History of diabetes mellitus. Plan: Continue using incentive spirometer Patient has a pneumothorax ex vacuo in the right lower lobe anterior area, this will be monitored No need for another thoracentesis at this point in time If his any interval worsening or recurrence of the pleural fluid, the patient will need either a surgical evaluation ordered a catheter with TPA administration. Based on that, the patient will be monitored very closely Adequate pain control Increase activity as tolerated Case was discussed with the medical team
--- NOTE | 2021-09-17 13:19 | P.PN ---
Progress Note - Text Progress Note Date: 09/17/21 - Chief Complaint Short of breath Hospital course: This is a very pleasant 65-year-old patient who follows with Dr. Riley. Chronic stable medical conditions include diabetes, hypertension, BPH and history of kidney stones. 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 Patient was up on a ladder trying to get total for her: And he fell. As a result patient had multiple injuries. Patient developed a flail chest on the right side of the rib fractures 3 through 10, small hemothorax and pneumothorax, pulmonary contusion, liver hematoma could not kidney laceration with subcapsular hematoma, anginal hematoma possibly, patient is currently in the ICU. Decreased appetite. Significant pain. Awake. Had urinary retention and had to have a catheter. at the bedside. Denies any bleeding from the nose. Fell about 10 feet backwards. Landed on his back and possibly hit his head. Was possibly unconscious for about 15 minutes. Admitted with acute rhabdomyolysis, active of Capone catheter placed because of bladder outflow obstruction, right-sided pulmonary contusion, right-sided flail chest, multiple right-sided rib fractures, elevated liver enzymes, liver injury. September 10: Moved to the medical floor. Having pain on the right chest wall. Eating little. Has a Capone catheter. Right-sided pulmonary hemorrhage/atelectasis on x-ray. Has not passed any flatus. September 11: Eating better. Using incentive spirometry. Capone catheter with clear urine. Pain at fracture site persist. Has passed flatus. Up in a recliner. Rhabdomyolysis improving. Right-sided atelectasis/hemothorax persists September 12: Eating okay. Capone catheter. Clear urine. Pain present. No BM this morning. Bulk forming laxative added. Using incentive spirometry. September 2: Up in a recliner. Capone catheter. Clear urine. Flatus. Pain present. Did walk in the hallway. September 14: Sitting up. Oral intake fair. Constipated. Dulcolax suppository ordered. Received lactulose 20 g yesterday. No BM. Making good urine. is present. Had a lengthy discussion with the patient and given update. Questions answered September 15: Patient had a good bowel movement. Some shortness of breath. Pain present. CT chest: Showing moderate to large right pleural fluid collection. Flail chest. September 16: Patient had right-sided thoracentesis and 1500 mL of bloody fluid was removed. Breathing stable. Pain present. Oral intake fair. September 17: Some shortness of breath. Pain doesn't. Eating okay. at the bedside. Computed tomography scan chest discussed with Dr. Sainz from pulmonary. Some fluids/blood present. Small pneumothorax 5-10% as reported. Follow clinically. Possible atelectasis. Continue with incentive spirometry. Active Medications Acetaminophen (Acetaminophen Tab 325 Mg Tab) 650 mg PO Q4HR PRN PRN Reason: Fever and/or Mild Pain Last Admin: 09/13/21 20:24 Dose: 650 mg Documented by: Hydrocodone Bitart/Acetaminophen (Hydrocodone/Apap 5-325mg 1 Each Tab) 1 each PO Q4HR PRN PRN Reason: Moderate Pain Last Admin: 09/17/21 07:47 Dose: 1 each Documented by: Albuterol/Ipratropium (Ipratropium-Albuterol 3 Ml Neb) 3 ml INHALATION RT-QID [facility] Last Admin: 09/17/21 08:29 Dose: 3 ml Documented by: Docusate Sodium (Docusate 100 Mg Cap) 100 mg PO BID [facility] Last Admin: 09/17/21 07:56 Dose: Not Given Documented by: Famotidine (Famotidine 20 Mg Tab) 20 mg PO BID [facility] Last Admin: 09/17/21 07:47 Dose: 20 mg Documented by: Ferrous Sulfate (Ferrous Sulfate 325 Mg Tab) 325 mg PO BID-W/MEALS [facility] Last Admin: 09/17/21 07:47 Dose: 325 mg Documented by: Glipizide (Glipizide 5 Mg Tab) 5 mg PO AC-BID [facility] Last Admin: 09/17/21 07:48 Dose: 5 mg Documented by: Insulin Aspart (Insulin Aspart (Novolog) 100 Unit/Ml Vial) 0 unit SQ AC-TID [facility]; Protocol Last Admin: 09/17/21 11:21 Dose: Not Given Documented by: Lidocaine (Lidocaine 5% Patch) 1 patch TOPICAL DAILY [facility]; Protocol Last Admin: 09/17/21 07:43 Dose: 1 patch Documented by: Lisinopril (Lisinopril 10 Mg Tab) 10 mg PO HS [facility] Last Admin: 09/16/21 21:07 Dose: 10 mg Documented by: Metformin HCl (Metformin 500 Mg Tab) 1,000 mg PO BID-W/MEALS [facility] Last Admin: 09/17/21 07:48 Dose: 1,000 mg Documented by: Montelukast Sodium (Montelukast 10 Mg Tab) 10 mg PO DAILY [facility] Last Admin: 09/17/21 07:48 Dose: 10 mg Documented by: Morphine Sulfate (Morphine Sulfate 4 Mg/Ml Syringe) 4 mg IV Q2HR PRN PRN Reason: Pain Scale 8 to 10 Last Admin: 09/15/21 01:47 Dose: 4 mg Documented by: Naloxone HCl (Naloxone 0.4 Mg/Ml 1 Ml Vial) 0.2 mg IV Q2M PRN PRN Reason: Opioid Reversal Ondansetron HCl (Ondansetron 4 Mg/2 Ml Vial) 4 mg IVP Q6HR PRN PRN Reason: Nausea And Vomiting Last Admin: 09/09/21 00:26 Dose: 4 mg Documented by: Tamsulosin HCl (Tamsulosin 0.4 Mg Cap.Er.24h) 0.4 mg PO DAILY [facility] Last Admin: 09/17/21 07:47 Dose: 0.4 mg Documented by: Past medical history to include: Diabetes, hypertension, BPH, kidney stone with a double-J stent on the left side previously, 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 Alcohol rarely. Does smoke in the past. Works at the [place] at [place] Family history: CAD Physical examination: VITAL SIGNS: 98.1, 68, 14, 156/78, 92% room air GENERAL up in chair, awake, comfortable EYES: Pupils equal. Conjunctiva normal. HEENT: External appearance of nose and ears normal, oral cavity grossly normal. NECK: JVD not raised; masses not palpable. HEART: First and second heart sounds are normal; no edema. LUNGS: Respiratory rate increased; decreased breath sounds on the right side. ABDOMEN: Soft, nontender, liver spleen not palpable, no masses palpable. PSYCH: Alert and oriented x3; mood and affect normal. MUSCULOSKELETAL:No Clubbing/cyanosis;muscles-grossly intact. Right chest wall tenderness INVESTIGATIONS, reviewed in the clinical context: Repeat CT chest: Decreased pleural effusion. Pneumothorax 5-10%. Atelectasis. CT chest: Large right pleural effusion Chest ultrasound: Pleural effusion September 13: White count 6.70 globin 10.6 potassium 4.1 creatinine 0.8 AST 32 ALT 82 September 12: White count 8.2 hemoglobin 10.3 platelets 131 potassium 3.9 creatinine 0.85 AST 37 ALT 106 albumin 2.7 September 11: White count 9.7 hemoglobin 10.7 platelets 136 potassium 4.2 creatinine 0.9 total bilirubin 0.6 AST 50 ALT 170 CPK 723 September 10: White count 11.6 hemoglobin 12.2 platelets 161 sodium 133 potassium 4.5 AST 112 ALT 274 CPK 1283 albumin 3.4 September 09: Creatinine kinase 1582. Glucose 222 hemoglobin 13.4 potassium 5.9 and repeat 4.4 White count 12 hemoglobin 15.1 platelets 209 potassium 4.3 creatinine 1.08 Lactic acid 4.1 AST 6 63 ALT 668 UA positive for blood RBC Chest x-ray film personally reviewed by me-right diaphragm elevated. Right rib fractures [address] thoracic or lumbar spine without contrast: Multiple right rib fractures at multiple locations suggestive of flail chest associated with a right pleural effusion slight hemothorax small right-sided pneumothorax CT chest abdomen pelvis: Ill-defined soft tissue nodule right internal gland 3.3 cm. Some tracking blood. Nonobstructive right renal calculi of to 4 mm. 1.7 parenchymal hematoma and laceration along the right lower pole right kidney. Some Slight hematoma. Left-sided colonic diverticulosis. Prostate gland enlarged. Some DJD changes. EKG tracing personally reviewed by me-normal sinus rhythm. Rate 73 2-D echocardiogram: EF 55%. No pericardial effusion. Computed tomography scan brain and C-spine without contrast: Unremarkable Assessment and plan: -Acute rhabdomyolysis secondary to muscle injury from fall: Improved. -Left-sided sigmoid diverticulosis: Asymptomatic -Right-sided kidney stones, asymptomatic -BPH with bladder outflow obstruction Continue Capone catheter. -Lactic acidosis, type II. No sepsis IV fluids -Right-sided pulmonary contusion/atelectasis, small pneumothorax Incentive spirometry -Right-sided flail chest Cardiothoracic surgery follow. Incentive spirometry -Right-sided multiple rib fractures, liver hematoma, right perinephritic bleeding Follow with surgery -Right hemothorax/pleural effusion. Decreased after thoracentesis. 1500 mL removed by thoracentesis on September 16. -Elevated liver enzymes, liver injury: Improving Follow LFTs -Diabetes mellitus type 2, uncontrolled with hyperglycemia Glipizide 5 mg twice a day. Diabetic diet. Follow Accu-Cheks. Glucophage -Essential hypertension Lisinopril 10 mg daily at bedtime -Albumin 3.3/hypoalbuminemia Acute phase reactant As discussed with Dr. Sainz. Continue current medications. Follow radiologically. Continue incentive spirometry. Discussed with patient. Total time spent today about 40 minutes with over 25 minutes of discussion. Thank you Dr. Brush
[2021-09-17] MEDS: MORPHINE SULFATE 4 MG/ML SYRINGE IV PRN (14:06)
[2021-09-17 16:08] LABS: Glucose,Whole Blood 179 mg/dL (75-99)
--- NOTE | 2021-09-17 17:15 | P.PN ---
Progress Note - Text Progress Note Date: 09/17/21 Patient's resting comfortably in his chair. His chest CT shows evidence of a 10% pneumothorax the right chest after thoracentesis yesterday. This is being observed. On exam vital signs appear stable. Abdomen soft. Patient will receive supportive care.
[2021-09-17 20:53] LABS: Glucose,Whole Blood 159 mg/dL (75-99)
[2021-09-17] MEDS: lisinopriL 10 MG TAB PO SCH (20:55)
[2021-09-18] MEDS: HYDROcodone/APAP 5-325MG 1 EACH TAB PO PRN ×4 (05:56→21:38)
[2021-09-18 06:56] LABS: Glucose,Whole Blood 144 mg/dL (75-99)
[2021-09-18] MEDS: LIDOCAINE 5% PATCH TOPICAL SCH (07:21)
[2021-09-18] MEDS: INSULIN ASPART (NovoLOG) 100 UNIT/ML VIAL SQ SCH ×3 (07:21→16:58)
[2021-09-18] MEDS: FAMOTIDINE 20 MG TAB PO SCH ×2 (07:23→20:05)
[2021-09-18] MEDS: TAMSULOSIN 0.4 MG CAP.ER.24H PO SCH (07:23)
[2021-09-18] MEDS: glipiZIDE 5 MG TAB PO SCH ×2 (07:23→16:57)
[2021-09-18] MEDS: metFORMIN 500 MG TAB PO SCH ×2 (07:23→16:57)
[2021-09-18] MEDS: FERROUS SULFATE 325 MG TAB PO SCH ×2 (07:23→16:57)
[2021-09-18] MEDS: MONTELUKAST 10 MG TAB PO SCH (07:23)
[2021-09-18] MEDS: DOCUSATE 100 MG CAP PO SCH ×2 (07:23→20:05)
[2021-09-18] MEDS: IPRATROPIUM-ALBUTEROL 3 ML NEB INHALATION SCH ×4 (08:27→20:20)
[2021-09-18] MEDS ORDERED: FUROSEMIDE 10 MG/ML 4 ML VIAL IV STA (10:16)
[2021-09-18 12:00] LABS: Glucose,Whole Blood 118 mg/dL (75-99)
--- NOTE | 2021-09-18 13:00 | P.PN ---
Subjective Progress Note Date: 09/18/21 Principal diagnosis: chest wall pain, trauma, multiple rib Fx 65-year-old male, who was evaluated in the emergency room yesterday, September 08. He seen today in room 264. The patient sees Dr. Sarabia and jaylen as a primary. He apparently fell from a ladder. He was trying to get a recluse out of his garage. He fell backwards and landed on his head. He apparently lost consciou sness for about 40 minutes. He apparently was discovered by his grandson, call for help. When he was picked up by EMS, he apparently was having some amnesia, and repetitive questioning. He also complained of some pain in his right upper chest and back area, with radiation to the right shoulder area. The patient was not on any blood thinners. The patient has a history of hypertension, diabetes, and BPH. When I spoke to the ER physician, he told me that the patient was discovered to have multiple rib fractures on the right lateral chest on the right, fractured ribs 3 through 10 on the right, a small pneumothorax and hemothorax on the right, and a pulmonary contusion. In addition there was a liver hematoma, kidney laceration, and adrenal hematoma. White count 14.6, hemoglobin 13.4, hematocrit 41.8, and platelet count. 228,000. Sodium 132, potassium 5.9, chlorides 99, CO2 20, BUN 20, and creatinine 1.17. The patient's lactic acid initially was 5.4. Repeat was 3.3. AST was 379, and ALT was 496. CT of the head and cervical spine, was essentially unremarkable. CT of the chest abdomen pelvis revealed a flail chest on the right, with fractures of ribs 3 through 10, except rib 9, underlying small hemothorax and 5% pneumothorax, pulmonary contusion, grade 3 liver hematoma, adrenal hematoma, grade 3 right renal injury with upper pole contusion, among other things. Progress note dated 09/10/2021. 65-year-old male, again seen in room 264. Other than pain, the patient is doing relatively well. He remains on saline at 200 mL an hour, and O2 at 2 L. I've asked him to use incentive spirometer every hour while awake. Clinically, the patient stable for transfer out of the intensive care unit. Laboratory data includes a white count 11.6, hemoglobin 12.2, hematocrit 38.1, and platelet count 161,000. Sodium 133, potassium 4.5, chlorides 102, CO2 27, anion gap 4, BUN 15, and creatinine 1.02. His total CK was 1283. AST 112, ALT 274. Albumin 3.4. The patient's chest x-ray show some bibasilar infiltrates and/or atelectasis, right greater than left. The patient is seen today 09/11/2021 in follow-up on the regular medical floor. He is currently sitting up in a chair at the bedside. Awake and alert in no acute distress. His pain is well controlled. He's down to 2 L nasal cannula maintaining good O2 saturations in the 90s. Chest x-ray does continue to show right lower lobe collapse. He is encouraged regarding the increased use the incentive spirometer and cough and deep breathing exercises. Urine culture reveals no growth. White count 9.7. Hemoglobin 10.7. Platelet count 136. Sodium 135. Potassium 4.2. Bicarb 24. BUN 13. Creatinine 0.9. AST 50. ALT 170. He is continued on Singulair, DuoNeb inhalations. Currently on diuretics 20 mg IV every 12 hours. He is currently in a negative 4 liter balance. Remains on normal saline at 200 ML's per hour per trauma services. The patient is seen today 09/12/2021 in follow-up on the regular medical floor. He is awake and alert in no acute distress. Sitting up in a chair at the bedside. Denies any worsening shortness of breath, cough or congestion. He is maintaining good O2 saturations in the 90s on 4 L/m per nasal cannula. Normal saline at 100 ML's per hour. Follow-up chest x-ray continues to show a known right-sided flail chest. Moderate amount of fluid in the right may have mild increase. Noted fractures of second third fourth fifth and sixth ribs on the right. He continues to work well with the incentive spirometer. Capone catheter remains in place with clear urine. Urine culture revealed no growth. White count 8.2. Hemoglobin 10.3. Platelets 131. Sodium 133. Potassium 3.9. BUN 14. Creatinine 0.85. Glucose 209. CK level 379. AST 37. ALT 106. The patient is seen today 09/13/2021 in follow-up on the regular medical floor. He is currently sitting up in chair at the bedside. Awake and alert in no acute distress. Maintaining O2 saturations in the 90s on 2 L/m per nasal cannula. He has normal saline running at 75 ML's per hour. Ultrasound of the right chest revealed a small effusion at 4.3 cm. There is some noted increased atelectasis on his chest x-ray. He is again educated regarding the use the incentive spirometer and cough and deep breathing exercises. He's been up ambulating in the hallway with assistance. White count 6.7. Hemoglobin 10.6. Sodium 137. Potassium 4.1. Creatinine 0.8. Glucose 182. He remains on bronchodilators. Colace and Metamucil initiated due to constipation. On 09/14/2021 patient seen in follow-up on medical surgical floor. He is awake and alert, in no acute distress, he is currently on 2 L of oxygen satting 94%, vital signs have been stable, blood pressure has been stable, patient has been working on incentive spirometer, he is achieving 1.5 L on the today. His lung sounds are diminished, no rhonchi or wheezing. His last chest x-ray from yesterday showed persistent small to moderate-sized right pleural effusion related to probable hemothorax with associated right basilar opacity favoring co mpressive atelectasis, no significant change compared one day earlier. Today's labs are still pending, yesterday's labs revealed a white blood cell, 6.7, hemoglobin of 10.6, platelet count of 157 electrolytes and renal profile were unremarkable. Patient has been getting up out of bed and ambulating, tolerating activity well, abdomen is soft, nontender. On 09/15/2021 patient seen in follow-up. Patient sitting up in a chair, he is currently on 2 L of oxygen pulse ox 95%, denies any worsening dyspnea, his clinical exam reveals diminished breath sounds at the right base and based on that and his previous chest x-rays a decision was made to proceed with a CT chest without contrast to evaluate the right-sided pleural fluid collection. CT chest has been reviewed showing moderate to large size right pleural effusion which has increased from initial computed tomography scan of the chest on a dmission on 09/08/2021. Patient has been working on incentive spirometer, he is achieving 2.5 L on the today. His pain is fairly well-controlled, does not appear to be in any acute distress. Today's labs have been reviewed On 09/18/2021 patient seen in follow-up on medical surgical floor. He is sitting up in the recliner, breathing comfortably, room air pulse ox is 95%, he's been working on incentive spirometer he is achieving 2 L on the today. Lung sounds reveal diminished breath sounds at the bases, today's chest x-ray is pending, yesterday's computed tomography scan of the chest showing small to moderate-sized right pleural effusion or fluid collection which is improved from 2 days earlier, there is confirmation of new anterior right basilar pneumothorax estimated at 5-10%. His pain is fairly well controlled. Vital signs have been stable his status post right-sided thoracentesis with removal of 1.5 L of bloody effusion. Pleural fluid Cytology was negative, pleural fluid cultures were negative. Patient has 1+ lower extremity edema, he will be given one-time dose IV Lasix Objective - Vital Signs Vital signs: Vital Signs Temp 98.4 F 09/18/21 08:00 Pulse 70 09/18/21 12:35 Resp 14 09/18/21 01:31 BP 127/76 09/18/21 08:00 Pulse Ox 95 09/18/21 08:29 Intake & Output 09/17/21 09/18/21 09/18/21 18:59 06:59 18:59 Other: Voiding Method Toilet Urinal # Voids 3 3 # Bowel Movements 1 - Exam GENERAL EXAM: Alert, very pleasant 65-year-old white male, resting in bed on room air with pulse ox of 95% , comfortable in no apparent distress. HEAD: Normocephalic/atraumatic. EYES: Normal reaction of pupils, equal size. Conjunctiva pink, sclera white. NOSE: Clear with pink turbinates. THROAT: No erythema or exudates. NECK: No masses, no JVD, no thyroid enlargement, no adenopathy. CHEST: No chest wall deformity. Symmetrical expansion. chest wall is tender to palpation LUNGS: diminished breath sounds at the bases, no rhonchi, no crackles no wheezes CVS: Regular rate and rhythm, normal S1 and S2, no gallops, no murmurs, no rubs ABDOMEN: Soft, nontender. No hepatosplenomegaly, normal bowel sounds, no guarding or rigidity. EXTREMITIES: No clubbing, no edema, no cyanosis, 2+ pulses and upper and lower extremities. MUSCULOSKELETAL: Muscle strength and tone normal. SPINE: No scoliosis or deformity SKIN: No rashes CENTRAL NERVOUS SYSTEM: Alert and oriented -3. No focal deficits, tone is normal in all 4 extremities. PSYCHIATRIC: Alert and oriented -3. Appropriate affect. Intact judgment and insight. - Labs CBC & Chem 7: 09/15/21 04:06 09/15/21 04:06 Labs: Abnormal Lab Results - Last 24 Hours (Table) 09/17/21 09/17/21 09/18/21 Range/Units 16:06 20:51 06:55 POC Glucose (mg/dL) 179 H 159 H 144 H (75-99) mg/dL 09/18/21 Range/Units 11:59 POC Glucose (mg/dL) 118 H (75-99) mg/dL Microbiology - Last 24 Hours (Table) 09/16/21 10:15 Gram Stain - Preliminary Pleural Fluid Body Fluid Culture - Preliminary 09/16/21 10:15 Acid Fast Bacilli Smear - Final Pleural Fluid Acid Fast Bacilli Culture - Preliminary Assessment and Plan Plan: Assessment: #1. Acute hypoxic respiratory failure secondary to multiple injuries including flail chest on the right, fractures of the ribs 3 through 10, except for #9, small hemothorax, pulmonary contusion, small pneumothorax, liver hematoma, kidney laceration and adrenal hematoma secondary to a fall from a ladder. #2. Loss of consciousness from the fall for 40 minutes, CT of the head and cervical spine showed no intracranial posttraumatic sequelae or acute calvarial bone fracture, no acute traumatic bony injury to the cervical spine #3. History of BPH #4. History of hypertension #5. History of diabetes mellitus #6. Increased right-sided pleural effusion, hemothorax, status post right-sided thoracentesis tomorrow on 09/16/2021, with removal of 1.5 L of bloody effusion Plan: Follow-up chest x-ray today Patient could benefit from a dose of IV Lasix Continue encouraging deep breathing and coughing If the pleural effusion is not worsening on the right side on today's chest x- ray and patient remains stable may consider for discharge I have personally seen and examined the patient, performed the documentation and the assessment and plan as written. Number of minutes spent on the visit: [10] this is a split shared evaluation that was done along with the nurse practitioner. I was involved in more than 50% of this evaluation and the evaluation was done and more than 20 minutes. Time with Patient: Less than 30
--- NOTE | 2021-09-18 13:09 | P.PN ---
Progress Note - Text Progress Note Date: 09/18/21 - Chief Complaint Short of breath Hospital course: This is a very pleasant 65-year-old patient who follows with Dr. Riley. Chronic stable medical conditions include diabetes, hypertension, BPH and history of kidney stones. 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 Patient was up on a ladder trying to get total for her: And he fell. As a result patient had multiple injuries. Patient developed a flail chest on the right side of the rib fractures 3 through 10, small hemothorax and pneumothorax, pulmonary contusion, liver hematoma could not kidney laceration with subcapsular hematoma, anginal hematoma possibly, patient is currently in the ICU. Decreased appetite. Significant pain. Awake. Had urinary retention and had to have a catheter. at the bedside. Denies any bleeding from the nose. Fell about 10 feet backwards. Landed on his back and possibly hit his head. Was possibly unconscious for about 15 minutes. Admitted with acute rhabdomyolysis, active of Capone catheter placed because of bladder outflow obstruction, right-sided pulmonary contusion, right-sided flail chest, multiple right-sided rib fractures, elevated liver enzymes, liver injury. September 10: Moved to the medical floor. Having pain on the right chest wall. Eating little. Has a Capone catheter. Right-sided pulmonary hemorrhage/atelectasis on x-ray. Has not passed any flatus. September 11: Eating better. Using incentive spirometry. Capone catheter with clear urine. Pain at fracture site persist. Has passed flatus. Up in a recliner. Rhabdomyolysis improving. Right-sided atelectasis/hemothorax persists September 12: Eating okay. Capone catheter. Clear urine. Pain present. No BM this morning. Bulk forming laxative added. Using incentive spirometry. September 2: Up in a recliner. Capone catheter. Clear urine. Flatus. Pain present. Did walk in the hallway. September 14: Sitting up. Oral intake fair. Constipated. Dulcolax suppository ordered. Received lactulose 20 g yesterday. No BM. Making good urine. is present. Had a lengthy discussion with the patient and given update. Questions answered September 15: Patient had a good bowel movement. Some shortness of breath. Pain present. CT chest: Showing moderate to large right pleural fluid collection. Flail chest. September 16: Patient had right-sided thoracentesis and 1500 mL of bloody fluid was removed. Breathing stable. Pain present. Oral intake fair. September 17: Some shortness of breath. Pain doesn't. Eating okay. at the bedside. Computed tomography scan chest discussed with Dr. Sainz from pulmonary. Some fluids/blood present. Small pneumothorax 5-10% as reported. Follow clinically. Possible atelectasis. Continue with incentive spirometry. September 18: Up in a chair. Breathing stable. Taking pain medications. Oral intake fair. Using incentive spirometry. Active Medications Acetaminophen (Acetaminophen Tab 325 Mg Tab) 650 mg PO Q4HR PRN PRN Reason: Fever and/or Mild Pain Last Admin: 09/13/21 20:24 Dose: 650 mg Documented by: Hydrocodone Bitart/Acetaminophen (Hydrocodone/Apap 5-325mg 1 Each Tab) 1 each PO Q4HR PRN PRN Reason: Moderate Pain Last Admin: 09/18/21 10:36 Dose: 1 each Documented by: Albuterol/Ipratropium (Ipratropium-Albuterol 3 Ml Neb) 3 ml INHALATION RT-QID [facility] Last Admin: 09/18/21 12:32 Dose: 3 ml Documented by: Docusate Sodium (Docusate 100 Mg Cap) 100 mg PO BID [facility] Last Admin: 09/18/21 07:23 Dose: Not Given Documented by: Famotidine (Famotidine 20 Mg Tab) 20 mg PO BID [facility] Last Admin: 09/18/21 07:23 Dose: 20 mg Documented by: Ferrous Sulfate (Ferrous Sulfate 325 Mg Tab) 325 mg PO BID-W/MEALS [facility] Last Admin: 09/18/21 07:23 Dose: 325 mg Documented by: Glipizide (Glipizide 5 Mg Tab) 5 mg PO AC-BID [facility] Last Admin: 09/18/21 07:23 Dose: 5 mg Documented by: Insulin Aspart (Insulin Aspart (Novolog) 100 Unit/Ml Vial) 0 unit SQ AC-TID [facility]; Protocol Last Admin: 09/18/21 12:02 Dose: Not Given Documented by: Lidocaine (Lidocaine 5% Patch) 1 patch TOPICAL DAILY [facility]; Protocol Last Admin: 09/18/21 07:21 Dose: 1 patch Documented by: Lisinopril (Lisinopril 10 Mg Tab) 10 mg PO HS [facility] Last Admin: 09/17/21 20:55 Dose: 10 mg Documented by: Metformin HCl (Metformin 500 Mg Tab) 1,000 mg PO BID-W/MEALS [facility] Last Admin: 09/18/21 07:23 Dose: 1,000 mg Documented by: Montelukast Sodium (Montelukast 10 Mg Tab) 10 mg PO DAILY [facility] Last Admin: 09/18/21 07:23 Dose: 10 mg Documented by: Morphine Sulfate (Morphine Sulfate 4 Mg/Ml Syringe) 4 mg IV Q2HR PRN PRN Reason: Pain Scale 8 to 10 Last Admin: 09/17/21 14:06 Dose: 4 mg Documented by: Naloxone HCl (Naloxone 0.4 Mg/Ml 1 Ml Vial) 0.2 mg IV Q2M PRN PRN Reason: Opioid Reversal Ondansetron HCl (Ondansetron 4 Mg/2 Ml Vial) 4 mg IVP Q6HR PRN PRN Reason: Nausea And Vomiting Last Admin: 09/09/21 00:26 Dose: 4 mg Documented by: Tamsulosin HCl (Tamsulosin 0.4 Mg Cap.Er.24h) 0.4 mg PO DAILY [facility] Last Admin: 09/18/21 07:23 Dose: 0.4 mg Documented by: Past medical history to include: Diabetes, hypertension, BPH, kidney stone with a double-J stent on the left side previously, 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 Alcohol rarely. Does smoke in the past. Works at the [place] at [place] Family history: CAD Physical examination: VITAL SIGNS: 98.4, 62, 14, 127/76, 92% room air GENERAL up in chair, awake, comfortable EYES: Pupils equal. Conjunctiva normal. HEENT: External appearance of nose and ears normal, oral cavity grossly normal. NECK: JVD not raised; masses not palpable. HEART: First and second heart sounds are normal; no edema. LUNGS: Respiratory rate increased; decreased breath sounds on the right side. ABDOMEN: Soft, nontender, liver spleen not palpable, no masses palpable. PSYCH: Alert and oriented x3; mood and affect normal. MUSCULOSKELETAL:No Clubbing/cyanosis;muscles-grossly intact. Right chest wall tenderness INVESTIGATIONS, reviewed in the clinical context: Repeat CT chest: Decreased pleural effusion. Pneumothorax 5-10%. Atelectasis. CT chest: Large right pleural effusion Chest ultrasound: Pleural effusion September 13: White count 6.70 globin 10.6 potassium 4.1 creatinine 0.8 AST 32 ALT 82 September 12: White count 8.2 hemoglobin 10.3 platelets 131 potassium 3.9 creatinine 0.85 AST 37 ALT 106 albumin 2.7 September 11: White count 9.7 hemoglobin 10.7 platelets 136 potassium 4.2 creatinine 0.9 total bilirubin 0.6 AST 50 ALT 170 CPK 723 September 10: White count 11.6 hemoglobin 12.2 platelets 161 sodium 133 potassium 4.5 AST 112 ALT 274 CPK 1283 albumin 3.4 September 09: Creatinine kinase 1582. Glucose 222 hemoglobin 13.4 potassium 5.9 and repeat 4.4 White count 12 hemoglobin 15.1 platelets 209 potassium 4.3 creatinine 1.08 Lactic acid 4.1 AST 6 63 ALT 668 UA positive for blood RBC Chest x-ray film personally reviewed by me-right diaphragm elevated. Right rib fractures [address] thoracic or lumbar spine without contrast: Multiple right rib fractures at multiple locations suggestive of flail chest associated with a right pleural effusion slight hemothorax small right-sided pneumothorax CT chest abdomen pelvis: Ill-defined soft tissue nodule right internal gland 3.3 cm. Some tracking blood. Nonobstructive right renal calculi of to 4 mm. 1.7 parenchymal hematoma and laceration along the right lower pole right kidney. Some Slight hematoma. Left-sided colonic diverticulosis. Prostate gland enlarged. Some DJD changes. EKG tracing personally reviewed by me-normal sinus rhythm. Rate 73 2-D echocardiogram: EF 55%. No pericardial effusion. Computed tomography scan brain and C-spine without contrast: Unremarkable Assessment and plan: -Acute rhabdomyolysis secondary to muscle injury from fall: Improved. -Left-sided sigmoid diverticulosis: Asymptomatic -Right-sided kidney stones, asymptomatic -BPH with bladder outflow obstruction Continue Capone catheter. -Lactic acidosis, type II. No sepsis IV fluids -Right-sided pulmonary contusion/atelectasis, small pneumothorax Incentive spirometry -Right-sided flail chest Cardiothoracic surgery follow. Incentive spirometry -Right-sided multiple rib fractures, liver hematoma, right perinephritic bleeding Follow with surgery -Right hemothorax/pleural effusion. Decreased after thoracentesis. 1500 mL removed by thoracentesis on September 16. -Elevated liver enzymes, liver injury: Improving Follow LFTs -Diabetes mellitus type 2, uncontrolled with hyperglycemia Glipizide 5 mg twice a day. Diabetic diet. Follow Accu-Cheks. Glucophage -Essential hypertension Lisinopril 10 mg daily at bedtime -Albumin 3.3/hypoalbuminemia Acute phase reactant Discussed with the patient. Continue incentive spirometry. Repeat chest x-ray ordered for today. Other medications to continue. Thank you Dr. Brush
--- NOTE | 2021-09-18 15:50 | XR ---
EXAMINATION TYPE: XR chest 2V DATE OF EXAM: 09/18/2021 COMPARISON: Chest x-ray 09/17/2021 HISTORY: Trauma, rib fractures TECHNIQUE: Frontal and lateral views of the chest are obtained. FINDINGS: Posterior right-sided rib fractures are again noted, minimal apical pneumothorax is presen t on the right. There is a pleural effusion with associated atelectasis or possibly lung contusion, r ight hemidiaphragm is obscured as is the right heart border. Postop changes are noted to the cervical spine. Left lung is spared. Cardiac mediastinal silhouette is likely stable. Postop changes are note d in the lumbar spine. IMPRESSION: Minimal apical right pneumothorax, right pleural effusion, multiple right-sided rib frac tures and additional findings above, findings similar to prior exam.
[2021-09-18 16:24] LABS: Glucose,Whole Blood 193 mg/dL (75-99)
--- NOTE | 2021-09-18 16:44 | P.PN ---
Subjective Progress Note Date: 09/18/21 CHIEF COMPLAINT: Fall from ladder with multiple trauma injuries HISTORY OF PRESENT ILLNESS: Patient is sitting at bedside chair. He is status post right-sided thoracentesis with 1.5 L removed. Patient reports improvement in his breathing. He is on room air satting at 95%. He reports that his pain is controlled. He is having flatus and bowel movement. Tolerating regular diet. He is afebrile. His chest x-ray for today is pending. Awaiting clearance from pulmonary service for possible discharge. Patient seen and examined with Dr. inman PHYSICAL EXAM: VITAL SIGNS: Reviewed GENERAL: Well-developed in no acute distress. HEENT: No sclera icterus. Extraocular movements grossly intact. Moist buccal mucosa. Head is atraumatic, normocephalic. Hears conversational speech. No nasal drain age. NECK: Supple without lymphadenopathy. CHEST: Non-labored respirations and equal bilateral excursions. CARDIOVASCULAR: Palpable 2+ radial pulses. ABDOMEN: Soft. Nondistended. Nontender. MUSCULOSKELETAL: No clubbing or cyanosis. NEUROLOGIC: No focal or lateralizing signs. Cranial nerves II through XII grossly intact. PSYCH: Appropriate affect. Alert and oriented to person, place and time. SKIN: Well perfused. Good skin turgor. ASSESSMENT: 1. Fall from ladder with multiple trauma injuries 2. Flail chest on the right with rib fractures 3 through 10 except #9 3. Right small hemothorax 4. Right small pneumothorax 5. Pulmonary contusion 6. Liver hematoma 7. Kidney laceration with subcapsular hematoma 8. Adrenal hematoma versus adrenal adenoma 9. Acute rhabdomyolysis due to patient's injuries improving 10. Loss of consciousness 11. History of diabetes mellitus with elevated glucose 12. History of hypertension 13. Elevated LFTs due to liver injury 14. Urinary retention 15. Lactic acidosis due to the rhabdomyolysis 16. Right pleural effusion status post thoracentesis PLAN -Continue supportive care -Awaiting further recommendations from pulmonary service regarding discharge -Possible discharge tomorrow to swing bed facility in [place] -Prophylaxis Protonix and DVT prophylaxis SCDs Physician Filler Mixer note has been reviewed by physician. Signing provider agrees with the documented findings, assessment, and plan of care. Objective - Vital Signs Vital signs: Vital Signs Temp 98.5 F 09/18/21 14:00 Pulse 70 09/18/21 16:01 Resp 14 09/18/21 01:31 BP 127/74 09/18/21 14:00 Pulse Ox 92 L 09/18/21 14:00 Intake & Output 09/17/21 09/18/21 09/18/21 18:59 06:59 18:59 Other: Voiding Method Toilet Urinal # Voids 3 3 # Bowel Movements 1 - Labs CBC & Chem 7: 09/15/21 04:06 09/15/21 04:06 Labs: Abnormal Lab Results - Last 24 Hours (Table) 09/17/21 09/18/21 09/18/21 Range/Units 20:51 06:55 11:59 POC Glucose (mg/dL) 159 H 144 H 118 H (75-99) mg/dL 09/18/21 Range/Units 16:23 POC Glucose (mg/dL) 193 H (75-99) mg/dL Microbiology - Last 24 Hours (Table) 09/16/21 10:15 Anaerobic Culture - Preliminary Pleural Fluid 09/16/21 10:15 Gram Stain - Preliminary Pleural Fluid Body Fluid Culture - Preliminary 09/16/21 10:15 Acid Fast Bacilli Smear - Final Pleural Fluid Acid Fast Bacilli Culture - Preliminary
[2021-09-18] MEDS: lisinopriL 10 MG TAB PO SCH (20:05)
[2021-09-18 20:07] VITALS: TEMP 97.6
[2021-09-18 20:35] LABS: Glucose,Whole Blood 155 mg/dL (75-99)
[2021-09-19] MEDS: HYDROcodone/APAP 5-325MG 1 EACH TAB PO PRN ×3 (05:49→15:09)
[2021-09-19 06:51] LABS: Glucose,Whole Blood 150 mg/dL (75-99)
[2021-09-19 07:51] VITALS: RESP 17
[2021-09-19] MEDS: INSULIN ASPART (NovoLOG) 100 UNIT/ML VIAL SQ SCH ×2 (08:07→11:33)
[2021-09-19] MEDS: glipiZIDE 5 MG TAB PO SCH (08:08)
[2021-09-19] MEDS: FAMOTIDINE 20 MG TAB PO SCH (08:08)
[2021-09-19] MEDS: MONTELUKAST 10 MG TAB PO SCH (08:08)
[2021-09-19] MEDS: FERROUS SULFATE 325 MG TAB PO SCH (08:08)
[2021-09-19] MEDS: metFORMIN 500 MG TAB PO SCH (08:08)
[2021-09-19] MEDS: LIDOCAINE 5% PATCH TOPICAL SCH (08:09)
[2021-09-19] MEDS: DOCUSATE 100 MG CAP PO SCH (08:09)
[2021-09-19] MEDS: TAMSULOSIN 0.4 MG CAP.ER.24H PO SCH (08:09)
[2021-09-19] MEDS: IPRATROPIUM-ALBUTEROL 3 ML NEB INHALATION SCH ×2 (08:44→11:51)
[2021-09-19 11:18] LABS: Glucose,Whole Blood 126 mg/dL (75-99)
--- NOTE | 2021-09-19 13:43 | P.DS ---
Providers Date of admission: 09/08/21 16:36 Expected date of discharge: 09/19/21 Attending physician: Oneyda Brush Consults: 09/08/21 16:36 Consult Physician ONCE Consulting Provider: Gary Matos Consult Reason/Comments: Abdominal trauma Do you want consulting provider notified?: Already Contacted Consult Physician Routine Consulting Provider: Aakash Berumen Consult Reason/Comments: thoracic trauma, respiratory failure, icu mgmt Do you want consulting provider notified?: Already Contacted Consult Physician Stat Consulting Provider: Andry Louise Consult Reason/Comments: chest trauma Do you want consulting provider notified?: Already Contacted 09/09/21 10:51 Consult Physician Routine Consulting Provider: Anesthesia,Services Consult Reason/Comments: pain management Do you want consulting provider notified?: Yes 09/09/21 12:24 Consult Physician Routine Consulting Provider: Horacio Cárdenas Consult Reason/Comments: medical management Do you want consulting provider notified?: Yes 09/11/21 16:40 Consult Physician Routine Consulting Provider: Leonard López Consult Reason/Comments: possible inpatient rehab Do you want consulting provider notified?: Yes Primary care physician: Preet Rosemary [facility] Course: Discharge diagnosis 1. Fall from ladder with multiple trauma injuries 2. Flail chest on the right with rib fractures 3 through 10 except #9 3. Right small hemothorax 4. Right small pneumothorax 5. Pulmonary contusion 6. Liver hematoma 7. Kidney laceration with subcapsular hematoma 8. Adrenal hematoma versus adrenal adenoma 9. Acute rhabdomyolysis due to patient's injuries improving 10. Loss of consciousness 11. History of diabetes mellitus with elevated glucose 12. History of hypertension 13. Elevated LFTs due to liver injury 14. Urinary retention 15. Lactic acidosis due to the rhabdomyolysis 16. Right pleural effusion status post thoracentesis Hospital course This is a 65-year-old male who reports falling off a ladder after trying to free a raccoon from his garage. Patient had multiple injuries including flail chest on the right with rib fractures 3 through 10 except #9, right small hemothorax, right small pneumothorax, pulmonary contusion, liver hematoma, kidney laceration with subscapular hematoma and adrenal hematoma. Patient seen and evaluated by cardiothoracic team. No intervention was required. Patient also evaluated by urology and again no intervention required. Patient was treated symptomatically. He was given IV fluids for the rhabdomyolysis. Recommend also stated resolved. He was seen by pain management team for pain control. He is currently tolerating oral pain medication. He has been up and ambulating. He is afebrile. He has been cleared by all consulting physicians for discharge. Pulmonary service did require to do a thoracentesis during this admission right pleural effusion. They've also cleared him for discharge with follow-up outpatient. Patient is on room air satting at 92%. Tolerating regular diet. Pain is controlled. He is afebrile. He is stable for discharge. Please refer to chart for any further details. Physician Billing Supervisor note has been reviewed by physician. Signing provider agrees with the documented findings, assessment, and plan of care. Patient Condition at Discharge: Stable Plan - Discharge Summary Discharge Rx Participant: No New Discharge Prescriptions: New Ferrous Sulfate [Iron (65 MG Elemental)] 325 mg PO BID-W/MEALS #60 tab Acetaminophen Tab [Tylenol] 650 mg PO Q4HR PRN tab PRN Reason: Fever And/Or Mild Pain HYDROcodone/APAP 5-325MG [[place]park 5-325] 1 tab PO Q6HR PRN 3 Days #12 tab PRN Reason: Pain Continue Tamsulosin HCl [Flomax] 0.4 mg PO DAILY metFORMIN HCL [Glucophage] 1,000 mg PO BID lisinopriL [Zestril] 10 mg PO HS Montelukast [Singulair] 10 mg PO DAILY Multivitamin/Iron/Folic Acid [Centrum Adults Tablet] 1 tab PO DAILY Changed glipiZIDE [Glucotrol] 5 mg PO BID #0 Discharge Medication List Montelukast [Singulair] 10 mg PO DAILY 09/08/21 [History] Multivitamin/Iron/Folic Acid [Centrum Adults Tablet] 1 tab PO DAILY 09/08/21 [History] Tamsulosin HCl [Flomax] 0.4 mg PO DAILY 09/08/21 [History] lisinopriL [Zestril] 10 mg PO HS 09/08/21 [History] metFORMIN HCL [Glucophage] 1,000 mg PO BID 09/08/21 [History] Acetaminophen Tab [Tylenol] 650 mg PO Q4HR PRN tab 09/19/21 [Rx] Ferrous Sulfate [Iron (65 MG Elemental)] 325 mg PO BID-W/MEALS #60 tab 04/08/22 [Rx] HYDROcodone/APAP 5-325MG [[place]park 5-325] 1 tab PO Q6HR PRN 3 Days #12 tab 09/19/21 [Rx] glipiZIDE [Glucotrol] 5 mg PO BID #0 09/19/21 [Rx] Follow up Appointment(s)/Referral(s): Preet Riley MD [Primary Care Provider] - 1 Week None,Stated [REFERRING] - 1-2 days Rosy Sainz MD [STAFF PHYSICIAN] - 2 Weeks Activity/Diet/Wound Care/Special Instructions: Activity as tolerated Regular diet Do not take both the Moorpark and Tylenol together Discharge Disposition: HOME WITH HOME HEALTH SERVICES
--- NOTE | 2021-09-19 13:57 | P.PN ---
Progress Note - Text Progress Note Date: 09/19/21 - Chief Complaint Short of breath Hospital course: This is a very pleasant 65-year-old patient who follows with Dr. Riley. Chronic stable medical conditions include diabetes, hypertension, BPH and history of kidney stones. 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 Patient was up on a ladder trying to get total for her: And he fell. As a result patient had multiple injuries. Patient developed a flail chest on the right side of the rib fractures 3 through 10, small hemothorax and pneumothorax, pulmonary contusion, liver hematoma could not kidney laceration with subcapsular hematoma, anginal hematoma possibly, patient is currently in the ICU. Decreased appetite. Significant pain. Awake. Had urinary retention and had to have a catheter. at the bedside. Denies any bleeding from the nose. Fell about 10 feet backwards. Landed on his back and possibly hit his head. Was possibly unconscious for about 15 minutes. Admitted with acute rhabdomyolysis, active of Capone catheter placed because of bladder outflow obstruction, right-sided pulmonary contusion, right-sided flail chest, multiple right-sided rib fractures, elevated liver enzymes, liver injury. September 10: Moved to the medical floor. Having pain on the right chest wall. Eating little. Has a Capone catheter. Right-sided pulmonary hemorrhage/atelectasis on x-ray. Has not passed any flatus. September 11: Eating better. Using incentive spirometry. Capone catheter with clear urine. Pain at fracture site persist. Has passed flatus. Up in a recliner. Rhabdomyolysis improving. Right-sided atelectasis/hemothorax persists September 12: Eating okay. Capone catheter. Clear urine. Pain present. No BM this morning. Bulk forming laxative added. Using incentive spirometry. September 2: Up in a recliner. Capone catheter. Clear urine. Flatus. Pain present. Did walk in the hallway. September 14: Sitting up. Oral intake fair. Constipated. Dulcolax suppository ordered. Received lactulose 20 g yesterday. No BM. Making good urine. is present. Had a lengthy discussion with the patient and given update. Questions answered September 15: Patient had a good bowel movement. Some shortness of breath. Pain present. CT chest: Showing moderate to large right pleural fluid collection. Flail chest. September 16: Patient had right-sided thoracentesis and 1500 mL of bloody fluid was removed. Breathing stable. Pain present. Oral intake fair. September 17: Some shortness of breath. Pain doesn't. Eating okay. at the bedside. Computed tomography scan chest discussed with Dr. Sainz from pulmonary. Some fluids/blood present. Small pneumothorax 5-10% as reported. Follow clinically. Possible atelectasis. Continue with incentive spirometry. September 18: Up in a chair. Breathing stable. Taking pain medications. Oral intake fair. Using incentive spirometry. September 19: Has been up in the hallway. Breathing is better. Eating fair. Bowel movements. Probably being discharged home today. Care was discussed with the patient and at the bedside. Advised to continue using incentive spirometry. Active Medications Acetaminophen (Acetaminophen Tab 325 Mg Tab) 650 mg PO Q4HR PRN PRN Reason: Fever and/or Mild Pain Last Admin: 09/13/21 20:24 Dose: 650 mg Documented by: Hydrocodone Bitart/Acetaminophen (Hydrocodone/Apap 5-325mg 1 Each Tab) 1 each PO Q4HR PRN PRN Reason: Moderate Pain Last Admin: 09/19/21 11:30 Dose: 1 each Documented by: Albuterol/Ipratropium (Ipratropium-Albuterol 3 Ml Neb) 3 ml INHALATION RT-QID [facility] Last Admin: 09/19/21 11:51 Dose: 3 ml Documented by: Docusate Sodium (Docusate 100 Mg Cap) 100 mg PO BID [facility] Last Admin: 09/19/21 08:09 Dose: Not Given Documented by: Famotidine (Famotidine 20 Mg Tab) 20 mg PO BID [facility] Last Admin: 09/19/21 08:08 Dose: 20 mg Documented by: Ferrous Sulfate (Ferrous Sulfate 325 Mg Tab) 325 mg PO BID-W/MEALS [facility] Last Admin: 09/19/21 08:08 Dose: 325 mg Documented by: Glipizide (Glipizide 5 Mg Tab) 5 mg PO AC-BID [facility] Last Admin: 09/19/21 08:08 Dose: 5 mg Documented by: Insulin Aspart (Insulin Aspart (Novolog) 100 Unit/Ml Vial) 0 unit SQ AC-TID [facility]; Protocol Last Admin: 09/19/21 11:33 Dose: Not Given Documented by: Lidocaine (Lidocaine 5% Patch) 1 patch TOPICAL DAILY [facility]; Protocol Last Admin: 09/19/21 08:09 Dose: 1 patch Documented by: Lisinopril (Lisinopril 10 Mg Tab) 10 mg PO HS [facility] Last Admin: 09/18/21 20:05 Dose: 10 mg Documented by: Metformin HCl (Metformin 500 Mg Tab) 1,000 mg PO BID-W/MEALS [facility] Last Admin: 09/19/21 08:08 Dose: 1,000 mg Documented by: Montelukast Sodium (Montelukast 10 Mg Tab) 10 mg PO DAILY [facility] Last Admin: 09/19/21 08:08 Dose: 10 mg Documented by: Morphine Sulfate (Morphine Sulfate 4 Mg/Ml Syringe) 4 mg IV Q2HR PRN PRN Reason: Pain Scale 8 to 10 Last Admin: 09/17/21 14:06 Dose: 4 mg Documented by: Naloxone HCl (Naloxone 0.4 Mg/Ml 1 Ml Vial) 0.2 mg IV Q2M PRN PRN Reason: Opioid Reversal Ondansetron HCl (Ondansetron 4 Mg/2 Ml Vial) 4 mg IVP Q6HR PRN PRN Reason: Nausea And Vomiting Last Admin: 09/09/21 00:26 Dose: 4 mg Documented by: Tamsulosin HCl (Tamsulosin 0.4 Mg Cap.Er.24h) 0.4 mg PO DAILY [facility] Last Admin: 09/19/21 08:09 Dose: 0.4 mg Documented by: Past medical history to include: Diabetes, hypertension, BPH, kidney stone with a double-J stent on the left side previously, 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 Alcohol rarely. Does smoke in the past. [place] at the [place] at [place] Family history: CAD Physical examination: VITAL SIGNS: 97.6, 66, 17, 145-84, 94% room air GENERAL up in chair, awake, comfortable EYES: Pupils equal. Conjunctiva normal. HEENT: External appearance of nose and ears normal, oral cavity grossly normal. NECK: JVD not raised; masses not palpable. HEART: First and second heart sounds are normal; no edema. LUNGS: Respiratory rate increased; decreased breath sounds on the right side. ABDOMEN: Soft, nontender, liver spleen not palpable, no masses palpable. PSYCH: Alert and oriented x3; mood and affect normal. MUSCULOSKELETAL:No Clubbing/cyanosis;muscles-grossly intact. Right chest wall tenderness INVESTIGATIONS, reviewed in the clinical context: Repeat CT chest: Decreased pleural effusion. Pneumothorax 5-10%. Atelectasis. CT chest: Large right pleural effusion Chest ultrasound: Pleural effusion September 13: White count 6.70 globin 10.6 potassium 4.1 creatinine 0.8 AST 32 ALT 82 September 12: White count 8.2 hemoglobin 10.3 platelets 131 potassium 3.9 creatinine 0.85 AST 37 ALT 106 albumin 2.7 September 11: White count 9.7 hemoglobin 10.7 platelets 136 potassium 4.2 creatinine 0.9 total bilirubin 0.6 AST 50 ALT 170 CPK 723 September 10: White count 11.6 hemoglobin 12.2 platelets 161 sodium 133 potassium 4.5 AST 112 ALT 274 CPK 1283 albumin 3.4 September 09: Creatinine kinase 1582. Glucose 222 hemoglobin 13.4 potassium 5.9 and repeat 4.4 White count 12 hemoglobin 15.1 platelets 209 potassium 4.3 creatinine 1.08 Lactic acid 4.1 AST 6 63 ALT 668 UA positive for blood RBC Chest x-ray film personally reviewed by me-right diaphragm elevated. Right rib fractures [address] thoracic or lumbar spine without contrast: Multiple right rib fractures at multiple locations suggestive of flail chest associated with a right pleural effusion slight hemothorax small right-sided pneumothorax CT chest abdomen pelvis: Ill-defined soft tissue nodule right internal gland 3.3 cm. Some tracking blood. Nonobstructive right renal calculi of to 4 mm. 1.7 parenchymal hematoma and laceration along the right lower pole right kidney. Some Slight hematoma. Left-sided colonic diverticulosis. Prostate gland enlarged. Some DJD changes. EKG tracing personally reviewed by me-normal sinus rhythm. Rate 73 2-D echocardiogram: EF 55%. No pericardial effusion. Computed tomography scan brain and C-spine without contrast: Unremarkable Assessment and plan: -Acute rhabdomyolysis secondary to muscle injury from fall: Improved. -Left-sided sigmoid diverticulosis: Asymptomatic -Right-sided kidney stones, asymptomatic -BPH with bladder outflow obstruction Continue Capone catheter. -Lactic acidosis, type II. No sepsis IV fluids -Right-sided pulmonary contusion/atelectasis, small pneumothorax Incentive spirometry -Right-sided flail chest Cardiothoracic surgery follow. Incentive spirometry -Right-sided multiple rib fractures, liver hematoma, right perinephritic bleeding Follow with surgery -Right hemothorax/pleural effusion. Decreased after thoracentesis. 1500 mL removed by thoracentesis on September 16. -Elevated liver enzymes, liver injury: Improving Follow LFTs -Diabetes mellitus type 2, uncontrolled with hyperglycemia Glipizide 5 mg twice a day. Diabetic diet. Follow Accu-Cheks. Glucophage thousand milligrams twice a day -Essential hypertension Lisinopril 10 mg daily at bedtime -Albumin 3.3/hypoalbuminemia Acute phase reactant Possible home today. Discussed with the patient. Continue his incentive spirometry. Questions answered Thank you Dr. Brush
--- NOTE | 2021-09-19 14:23 | P.PN ---
Subjective Progress Note Date: 09/19/21 Principal diagnosis: chest wall pain, trauma, multiple rib Fx 65-year-old male, who was evaluated in the emergency room yesterday, September 08. He seen today in room 264. The patient sees Dr. Sarabia and jaylen as a primary. He apparently fell from a ladder. He was trying to get a recluse out of his garage. He fell backwards and landed on his head. He apparently lost consciou sness for about 40 minutes. He apparently was discovered by his grandson, call for help. When he was picked up by EMS, he apparently was having some amnesia, and repetitive questioning. He also complained of some pain in his right upper chest and back area, with radiation to the right shoulder area. The patient was not on any blood thinners. The patient has a history of hypertension, diabetes, and BPH. When I spoke to the ER physician, he told me that the patient was discovered to have multiple rib fractures on the right lateral chest on the right, fractured ribs 3 through 10 on the right, a small pneumothorax and hemothorax on the right, and a pulmonary contusion. In addition there was a liver hematoma, kidney laceration, and adrenal hematoma. White count 14.6, hemoglobin 13.4, hematocrit 41.8, and platelet count. 228,000. Sodium 132, potassium 5.9, chlorides 99, CO2 20, BUN 20, and creatinine 1.17. The patient's lactic acid initially was 5.4. Repeat was 3.3. AST was 379, and ALT was 496. CT of the head and cervical spine, was essentially unremarkable. CT of the chest abdomen pelvis revealed a flail chest on the right, with fractures of ribs 3 through 10, except rib 9, underlying small hemothorax and 5% pneumothorax, pulmonary contusion, grade 3 liver hematoma, adrenal hematoma, grade 3 right renal injury with upper pole contusion, among other things. Progress note dated 09/10/2021. 65-year-old male, again seen in room 264. Other than pain, the patient is doing relatively well. He remains on saline at 200 mL an hour, and O2 at 2 L. I've asked him to use incentive spirometer every hour while awake. Clinically, the patient stable for transfer out of the intensive care unit. Laboratory data includes a white count 11.6, hemoglobin 12.2, hematocrit 38.1, and platelet count 161,000. Sodium 133, potassium 4.5, chlorides 102, CO2 27, anion gap 4, BUN 15, and creatinine 1.02. His total CK was 1283. AST 112, ALT 274. Albumin 3.4. The patient's chest x-ray show some bibasilar infiltrates and/or atelectasis, right greater than left. The patient is seen today 09/11/2021 in follow-up on the regular medical floor. He is currently sitting up in a chair at the bedside. Awake and alert in no acute distress. His pain is well controlled. He's down to 2 L nasal cannula maintaining good O2 saturations in the 90s. Chest x-ray does continue to show right lower lobe collapse. He is encouraged regarding the increased use the incentive spirometer and cough and deep breathing exercises. Urine culture reveals no growth. White count 9.7. Hemoglobin 10.7. Platelet count 136. Sodium 135. Potassium 4.2. Bicarb 24. BUN 13. Creatinine 0.9. AST 50. ALT 170. He is continued on Singulair, DuoNeb inhalations. Currently on diuretics 20 mg IV every 12 hours. He is currently in a negative 4 liter balance. Remains on normal saline at 200 ML's per hour per trauma services. The patient is seen today 09/12/2021 in follow-up on the regular medical floor. He is awake and alert in no acute distress. Sitting up in a chair at the bedside. Denies any worsening shortness of breath, cough or congestion. He is maintaining good O2 saturations in the 90s on 4 L/m per nasal cannula. Normal saline at 100 ML's per hour. Follow-up chest x-ray continues to show a known right-sided flail chest. Moderate amount of fluid in the right may have mild increase. Noted fractures of second third fourth fifth and sixth ribs on the right. He continues to work well with the incentive spirometer. Capone catheter remains in place with clear urine. Urine culture revealed no growth. White count 8.2. Hemoglobin 10.3. Platelets 131. Sodium 133. Potassium 3.9. BUN 14. Creatinine 0.85. Glucose 209. CK level 379. AST 37. ALT 106. The patient is seen today 09/13/2021 in follow-up on the regular medical floor. He is currently sitting up in chair at the bedside. Awake and alert in no acute distress. Maintaining O2 saturations in the 90s on 2 L/m per nasal cannula. He has normal saline running at 75 ML's per hour. Ultrasound of the right chest revealed a small effusion at 4.3 cm. There is some noted increased atelectasis on his chest x-ray. He is again educated regarding the use the incentive spirometer and cough and deep breathing exercises. He's been up ambulating in the hallway with assistance. White count 6.7. Hemoglobin 10.6. Sodium 137. Potassium 4.1. Creatinine 0.8. Glucose 182. He remains on bronchodilators. Colace and Metamucil initiated due to constipation. On 09/14/2021 patient seen in follow-up on medical surgical floor. He is awake and alert, in no acute distress, he is currently on 2 L of oxygen satting 94%, vital signs have been stable, blood pressure has been stable, patient has been working on incentive spirometer, he is achieving 1.5 L on the today. His lung sounds are diminished, no rhonchi or wheezing. His last chest x-ray from yesterday showed persistent small to moderate-sized right pleural effusion related to probable hemothorax with associated right basilar opacity favoring co mpressive atelectasis, no significant change compared one day earlier. Today's labs are still pending, yesterday's labs revealed a white blood cell, 6.7, hemoglobin of 10.6, platelet count of 157 electrolytes and renal profile were unremarkable. Patient has been getting up out of bed and ambulating, tolerating activity well, abdomen is soft, nontender. On 09/15/2021 patient seen in follow-up. Patient sitting up in a chair, he is currently on 2 L of oxygen pulse ox 95%, denies any worsening dyspnea, his clinical exam reveals diminished breath sounds at the right base and based on that and his previous chest x-rays a decision was made to proceed with a CT chest without contrast to evaluate the right-sided pleural fluid collection. CT chest has been reviewed showing moderate to large size right pleural effusion which has increased from initial computed tomography scan of the chest on a dmission on 09/08/2021. Patient has been working on incentive spirometer, he is achieving 2.5 L on the today. His pain is fairly well-controlled, does not appear to be in any acute distress. Today's labs have been reviewed On 09/18/2021 patient seen in follow-up on medical surgical floor. He is sitting up in the recliner, breathing comfortably, room air pulse ox is 95%, he's been working on incentive spirometer he is achieving 2 L on the today. Lung sounds reveal diminished breath sounds at the bases, today's chest x-ray is pending, yesterday's computed tomography scan of the chest showing small to moderate-sized right pleural effusion or fluid collection which is improved from 2 days earlier, there is confirmation of new anterior right basilar pneumothorax estimated at 5-10%. His pain is fairly well controlled. Vital signs have been stable his status post right-sided thoracentesis with removal of 1.5 L of bloody effusion. Pleural fluid Cytology was negative, pleural fluid cultures were negative. Patient has 1+ lower extremity edema, he will be given one-time dose IV Lasix On 09/19/2021 patient seen in follow-up on medical surgical floor. He is resting comfortably in the recliner, breathing comfortably. Permanent pulse ox is 92-95%, patient has been afebrile. Last chest x-ray from 09/18/2021 showed minimal apical right pneumothorax, right pleural effusion and multiple right- sided rib fractures. he has been working on the incentive spirometer. His pain is fairly well controlled. Patient received one-time dose of IV Lasix yesterday. Patient has diuresed. No acute events overnight, no chest discomfort, no worsening dyspnea. He could possibly be considered for discharge home today. Objective - Vital Signs Vital signs: Vital Signs Temp 97.6 F 09/19/21 07:16 Pulse 72 09/19/21 12:08 Resp 17 09/19/21 08:05 BP 145/84 09/19/21 07:16 Pulse Ox 94 L 09/19/21 07:16 Intake & Output 09/18/21 09/19/21 09/19/21 18:59 06:59 18:59 Other: # Voids 4 - Exam GENERAL EXAM: Alert, very pleasant 65-year-old white male, resting in bed on room air with pulse ox of 95% , comfortable in no apparent distress. HEAD: Normocephalic/atraumatic. EYES: Normal reaction of pupils, equal size. Conjunctiva pink, sclera white. NOSE: Clear with pink turbinates. THROAT: No erythema or exudates. NECK: No masses, no JVD, no thyroid enlargement, no adenopathy. CHEST: No chest wall deformity. Symmetrical expansion. chest wall is tender to palpation LUNGS: diminished breath sounds at the bases, no rhonchi, no crackles no wheezes CVS: Regular rate and rhythm, normal S1 and S2, no gallops, no murmurs, no rubs ABDOMEN: Soft, nontender. No hepatosplenomegaly, normal bowel sounds, no guarding or rigidity. EXTREMITIES: No clubbing, no edema, no cyanosis, 2+ pulses and upper and lower extremities. MUSCULOSKELETAL: Muscle strength and tone normal. SPINE: No scoliosis or deformity SKIN: No rashes CENTRAL NERVOUS SYSTEM: Alert and oriented -3. No focal deficits, tone is normal in all 4 extremities. PSYCHIATRIC: Alert and oriented -3. Appropriate affect. Intact judgment and insight. - Labs CBC & Chem 7: 09/15/21 04:06 09/15/21 04:06 Labs: Abnormal Lab Results - Last 24 Hours (Table) 09/18/21 09/18/21 09/19/21 Range/Units 16:23 20:34 06:48 POC Glucose (mg/dL) 193 H 155 H 150 H (75-99) mg/dL 09/19/21 Range/Units 11:17 POC Glucose (mg/dL) 126 H (75-99) mg/dL Microbiology - Last 24 Hours (Table) 09/16/21 10:15 Gram Stain - Preliminary Pleural Fluid Body Fluid Culture - Preliminary 09/16/21 10:15 Anaerobic Culture - Preliminary Pleural Fluid Assessment and Plan Plan: Assessment: Acute hypoxic respiratory failure secondary to multiple injuries including flail chest on the right, fractures of the ribs 3 through 10, except for #9, small h emothorax, pulmonary contusion, small pneumothorax, liver hematoma, kidney laceration and adrenal hematoma secondary to a fall from a ladder. Loss of consciousness from the fall for 40 minutes, CT of the head and cervical spine showed no intracranial posttraumatic sequelae or acute calvarial bone fracture, no acute traumatic bony injury to the cervical spine History of BPH History of hypertension History of diabetes mellitus Increased right-sided pleural effusion, hemothorax, status post right-sided thoracentesis tomorrow on 09/16/2021, with removal of 1.5 L of bloody effusion Plan: Clinically and hemodynamically patient has been stable Continue encouraging deep breathing and coughing and incentive spirometry use He may be considered for discharge from pulmonary perspective He will need outpatient follow up with Dr. Sainz in the office in 2-3 weeks I have personally seen and examined the patient, performed the documentation and the assessment and plan as written. Number of minutes spent on the visit: [10] this is a split shared evaluation that was done along with the nurse practitioner. This evaluation was done and more than 10 minutes.I was involved and more than 90% of the evaluation in terms of history taking, diagnostic and decision making. I also talked to the patient and the patient has a ongoing issue with right lung consolidation/contusion in addition to a small right-sided bloody pleural effusion. This will be followed up on outpatient basis. No need for home O2. Time with Patient: Less than 30
[2021-09-19 14:39] VITALS: BP 128/72; PULSE 84
== END 2021-09-19 15:32 | disposition home health service (06) | DRG 963 ==
LOC: EC 13:33 → 2SICU 16:36 → 4SSUR 09-10 11:46
PROVIDERS: ADMIT Surgery Plastic and Reconstructive Surgery; ATTEND Surgery Plastic and Reconstructive Surgery
PROC: 0W993ZZ Drainage of Right Pleural Cavity, Percutaneous Approach (ICD-10-PCS; principal; 2021-09-16)
DX: S22.5XXA Flail chest, initial encounter for closed fracture (principal); J96.01 Acute respiratory failure with hypoxia; S37.812A Contusion of adrenal gland, initial encounter; S27.2XXA Traumatic hemopneumothorax, initial encounter; S06.0X1A Concussion with loss of consciousness of 30 minutes or less, initial encounter; E87.2 Acidosis; S27.321A Contusion of lung, unilateral, initial encounter; J90 Pleural effusion, not elsewhere classified; J98.11 Atelectasis; S36.112A Contusion of liver, initial encounter; S37.011A Minor contusion of right kidney, initial encounter; S37.051A Moderate laceration of right kidney, initial encounter; R33.8 Other retention of urine; W11.XXXA Fall on and from ladder, initial encounter; Y92.015 Private garage of single-family (private) house as the place of occurrence of the external cause; E11.65 Type 2 diabetes mellitus with hyperglycemia; E87.5 Hyperkalemia; E88.09 Other disorders of plasma-protein metabolism, not elsewhere classified; G47.30 Sleep apnea, unspecified; I10 Essential (primary) hypertension; K57.30 Diverticulosis of large intestine without perforation or abscess without bleeding; K59.00 Constipation, unspecified; M48.061 Spinal stenosis, lumbar region without neurogenic claudication; N20.0 Calculus of kidney; N28.89 Other specified disorders of kidney and ureter; T79.6XXA Traumatic ischemia of muscle, initial encounter; N32.0 Bladder-neck obstruction; N40.1 Benign prostatic hyperplasia with lower urinary tract symptoms; Z79.84 Long term (current) use of oral hypoglycemic drugs; Z79.899 Other long term (current) drug therapy; Z82.49 Family history of ischemic heart disease and other diseases of the circulatory system; Z87.442 Personal history of urinary calculi; Z87.891 Personal history of nicotine dependence
CPT/HCPCS: 32554; 36415; 70450; 71045; 71046; 71250; 71260; 72125; 72129; 72132; 72170; 74177; 76604; 80053; 81001; 82550; 82945; 83605; 83615; 83690; 83874; 84132; 84157; 85025; 85027; 85610; 85730; 86850; 86900; 86901; 87070; 87075; 87086; 87102; 87116; 87205; 87206; 87252; 87496; 87498; 87502; 87529; 87634; 87798; 88108; 88305; 89050; 93005; 93306; 94640; 94760; 96361; 96374; 96375; 96376; 99291

== ENCOUNTER → 2021-10-14 | Outpatient (CLI) | payer MEDICARE, BC ==
--- NOTE | 2021-10-14 10:50 | XR ---
EXAMINATION TYPE: XR shoulder complete RT DATE OF EXAM: 10/14/2021 CLINICAL HISTORY: Pain after recent fall injury. Fall injury caused recent right-sided rib fractures and hemothorax. TECHNIQUE: Three views of the right shoulder are obtained. COMPARISON: Outside Chest x-ray earlier today FINDINGS: There is no acute fracture/dislocation evident in the right shoulder. Mild to moderate reece rowing at the acromioclavicular joint. Glenohumeral joint shows mild narrowing. Subchondral cystic ch khanh superior lateral humeral head. Displaced right-sided lateral rib fractures with small to moderat e sized right pleural fluid collection or hemothorax is noted. IMPRESSION: There is no acute fracture or dislocation in the right shoulder.
== END | disposition home or self-care (01) ==
LOC: RADXRMAIN 10:28
PROVIDERS: ATTEND Internal Medicine Critical Care Medicine
DX: M25.511 Pain in right shoulder (principal); S49.91XA Unspecified injury of right shoulder and upper arm, initial encounter; S22.41XB Multiple fractures of ribs, right side, initial encounter for open fracture; J94.2 Hemothorax; W19.XXXA Unspecified fall, initial encounter

== ENCOUNTER → 2021-10-14 | Outpatient (CLI) | payer MEDICARE, BC ==
--- NOTE | 2021-10-14 10:42 | US ---
EXAMINATION TYPE: US chest DATE OF EXAM: 10/14/2021 COMPARISON: Outside chest x-ray earlier today CLINICAL HISTORY: S27.1XXD TRAUMATIC HEMOTHORAX, SUBSEQUENT ENCOUNTE. Pleural effusion. TECHNIQUE: Targeted ultrasound of the posterior lower right hemithorax EXAM MEASUREMENTS: Right Pleural Effusion pocket size: 3.7 cm Right skin surface to fluid distance: 2.8 cm Lung tissue visualized at 1.8 cm in fluid pocket. Right side marked for possible thoracentesis outside the dept. Pulmonologists are able to review the images in the patient?s EMR. Small to borderline moderate size right pleural effusion seen on images states correlates with outsid e x-ray earlier today IMPRESSIONS: As above.
== END | disposition home or self-care (01) ==
LOC: RADUSWWP 10:02
PROVIDERS: ATTEND Internal Medicine Critical Care Medicine
DX: J90 Pleural effusion, not elsewhere classified (principal); S27.1XXS Traumatic hemothorax, sequela; X58.XXXS Exposure to other specified factors, sequela
CPT/HCPCS: 76604